=== PATIENT | female | born 1960 | race Caucasian/White ===

== ENCOUNTER 2019-06-10 02:08 | Inpatient (IN) | payer BC ==
--- NOTE | 2019-06-10 02:57 | ED ---
SOB HPI - General Chief Complaint: Shortness of Breath Stated Complaint: Shortness of breath Time Seen by Provider: 06/10/19 02:10 Source: patient, EMS Mode of arrival: EMS - History of Present Illness Initial Comments: The patient is a 58-year-old female, previously healthy with only diagnosis of bipolar depression who presented to [facility] for shortness of breath. She stated that 2 weeks ago she woke up in the middle the night with excruciating chest pain. States that the pain ended up going away and she was never evaluated for it. Since then she has had increasing shortness of breath. She does work at [employer] stated it was more difficult to get up and down stairs. States that her coworkers were persuading her to come into the emergency Department however she put it off. She then went into the emergency department at [facility] where they found that she had a large pericardial effusion and bilateral pleural effusions. She was saturating 88% on room air. They did present to liters she was saturating in the low 90s. Patient had a CT of her chest performed which ruled out a PE. Blood pressure was stable and he called and requested transfer to our facility. Patient arrives hemodynamically stable. Does admit to increased worker breathing however denies any current chest pain. Denies any back or flank pain. No fevers or chills. No nausea or vomiting. Denies a previous cardiac history. Denies abdominal pain. There are no alleviating, precipitating or modifying factors - Related Data Home Medications Medication Instructions Recorded Confirmed Divalproex [Depakote] 1,500 mg PO HS@202906/10/19 06/10/19 QUEtiapine FUMARATE 600 mg PO HS@202906/10/19 06/10/19 Previous Rx's Medication Instructions Recorded Apixaban [Eliquis] 10 mg PO BID #60 tab 06/16/19 Colchicine [Colcrys] 0.6 mg PO BID #60 each 06/16/19 Metoprolol Tartrate [Lopressor] 25 mg PO BID #60 tab 06/16/19 Allergies Allergy/AdvReac Type Severity Reaction Status Date / Time No Known Allergies Allergy Verified 06/10/19 08:18 Review of Systems ROS Statement: Those systems with pertinent positive or pertinent negative responses have been documented in the HPI. ROS Other: All systems not noted in ROS Statement are negative. Past Medical History History of Any Multi-Drug Resistant Organisms: None Reported Past Surgical History: Section, Tonsillectomy Additional Past Surgical History / Comment(s): Adnoidectomy Past Psychological History: Bipolar, Depression Smoking Status: Never smoker Past Drug Use History: None Reported - Past Family History Mother Family Medical History: Dementia Father Family Medical History: Diabetes Mellitus, Myocardial Infarction ([place]) ( at age 70 due to a myocardial infarction) General Exam General appearance: alert, in no apparent distress Head exam: Present: atraumatic, normocephalic, normal inspection Eye exam: Present: normal appearance, PERRL, EOMI. Absent: scleral icterus, conjunctival injection, periorbital swelling ENT exam: Present: normal exam, mucous membranes moist Neck exam: Present: normal inspection, other (JVD). Absent: tenderness, meningismus, lymphadenopathy Respiratory exam: Present: wheezes, rales, accessory muscle use, decreased breath sounds. Absent: respiratory distress, rhonchi, stridor Cardiovascular Exam: Present: regular rate, normal rhythm, normal heart sounds, other (heart sounds not muffled). Absent: systolic murmur, diastolic murmur, rubs, gallop, clicks GI/Abdominal exam: Present: soft, normal bowel sounds. Absent: distended, tenderness, guarding, rebound, rigid Extremities exam: Present: normal inspection, full ROM, normal capillary refill. Absent: tenderness, pedal edema, joint swelling, calf tenderness Back exam: Present: normal inspection Neurological exam: Present: alert, oriented X3, CN II-XII intact Psychiatric exam: Present: normal affect, normal mood Skin exam: Present: warm, dry, intact, normal color. Absent: rash Course Vital Signs 06/10/19 06/10/19 06/10/19 02:15 02:28 02:34 Temperature 98.1 F 98.1 F Pulse Rate 89 97 Pulse Rate [ 97 Ordnance Engineering Technician ] Respiratory 20 19 23 Rate Blood Pressure 110/92 110/92 O2 Sat by Pulse 92 L 92 L Oximetry 06/10/19 06/10/19 06/10/19 03:24 04:00 05:00 Temperature Pulse Rate 101 H 101 H 98 Pulse Rate [ Ordnance Engineering Technician ] Respiratory 22 22 22 Rate Blood Pressure 110/92 122/74 125/71 O2 Sat by Pulse 95 95 Oximetry Medical Decision Making - Medical Decision Making Upon arrival the patient was placed into room 10. I did review the patient's chart from [place]. Lactic acid was 1.8, hemoglobin 10.7, platelets 433, creatinine 0.7, potassium 3.6, sodium 138, chloride 106, troponin 0.03, BNP 134. She had received IV fluids, Toradol. CT ruled out PE however demonstrate a large pericardial effusion with bilateral pleural effusions. I did repeat a 12- lead EKG on the patient at her facility. I also conducted laboratory studies. Hemoglobin is 10.3. INR 1.2. Troponin is negative. I performed a bedside card iac ultrasound. There is large pericardial effusion with collapse of the right ventricle. Ultrasound pictures were placed on the chart. Because of this and my concern that the patient may need higher level of care, I called and discussed the case with Dr. Diamond at 3:50 AM. He does state that the patient may remain at [facility]. He recommends placing the patient in ICU, making her nothing by mouth with cardiology consult. He is also requesting a stat formal echo at 7 AM[address] Discuss[address] case with Dr. Cruz after this who accepted admission. I called and discussed the case with Dr. Jose who agreed to admission to ICU. Patient is being transported to the floor in stable condition - Lab Data Result diagrams: 06/15/19 05:26 06/15/19 05:26 Lab Results 06/10/19 06/10/19 06/10/19 Range/Units 02:50 02:50 02:50 WBC 9.3 (3.8-10.6) k/uL RBC 3.28 L (3.80-5.40) m/uL Hgb 10.3 L (11.4-16.0) gm/dL Hct 31.7 L (34.0-46.0) % MCV 96.6 (80.0-100.0) fL MCH 31.3 (25.0-35.0) pg MCHC 32.4 (31.0-37.0) g/dL RDW 13.3 (11.5-15.5) % Plt Count 374 (150-450) k/uL Neutrophils % 77 % Lymphocytes % 12 % Monocytes % 8 % Eosinophils % 2 % Basophils % 0 % Neutrophils # 7.1 (1.3-7.7) k/uL Lymphocytes # 1.1 (1.0-4.8) k/uL Monocytes # 0.8 (0-1.0) k/uL Eosinophils # 0.2 (0-0.7) k/uL Basophils # 0.0 (0-0.2) k/uL ESR (0-20) mm/hr PT 12.3 H (9.0-12.0) sec INR 1.2 H (<1.2) APTT 22.4 (22.0-30.0) sec Sodium 137 (137-145) mmol/L Potassium 4.3 (3.5-5.1) mmol/L Chloride 106 (98-107) mmol/L Carbon Dioxide 25 (22-30) mmol/L Anion Gap 6 mmol/L BUN 26 H (7-17) mg/dL Creatinine 0.69 (0.52-1.04) mg/dL Est GFR (CKD-EPI)AfAm >90 (>60 ml/min/1.73 sqM) Est GFR (CKD-EPI)NonAf >90 (>60 ml/min/1.73 sqM) Glucose 103 H (74-99) mg/dL Calcium 8.5 (8.4-10.2) mg/dL Total Bilirubin 0.7 (0.2-1.3) mg/dL AST 36 (14-36) U/L ALT 69 H (4-34) U/L Alkaline Phosphatase 149 H (38-126) U/L Troponin I (0.000-0.034) ng/mL Total Protein 6.2 L (6.3-8.2) g/dL Albumin 3.3 L (3.5-5.0) g/dL TSH (0.465-4.680) mIU/L Blood Type Confirm 06/10/19 06/10/19 06/10/19 Range/Units 02:50 02:50 02:50 WBC (3.8-10.6) k/uL RBC (3.80-5.40) m/uL Hgb (11.4-16.0) gm/dL Hct (34.0-46.0) % MCV (80.0-100.0) fL MCH (25.0-35.0) pg MCHC (31.0-37.0) g/dL RDW (11.5-15.5) % Plt Count (150-450) k/uL Neutrophils % % Lymphocytes % % Monocytes % % Eosinophils % % Basophils % % Neutrophils # (1.3-7.7) k/uL Lymphocytes # (1.0-4.8) k/uL Monocytes # (0-1.0) k/uL Eosinophils # (0-0.7) k/uL Basophils # (0-0.2) k/uL ESR 58 H (0-20) mm/hr PT (9.0-12.0) sec INR (<1.2) APTT (22.0-30.0) sec Sodium (137-145) mmol/L Potassium (3.5-5.1) mmol/L Chloride (98-107) mmol/L Carbon Dioxide (22-30) mmol/L Anion Gap mmol/L BUN (7-17) mg/dL Creatinine (0.52-1.04) mg/dL Est GFR (CKD-EPI)AfAm (>60 ml/min/1.73 sqM) Est GFR (CKD-EPI)NonAf (>60 ml/min/1.73 sqM) Glucose (74-99) mg/dL Calcium (8.4-10.2) mg/dL Total Bilirubin (0.2-1.3) mg/dL AST (14-36) U/L ALT (4-34) U/L Alkaline Phosphatase (38-126) U/L Troponin I <0.012 (0.000-0.034) ng/mL Total Protein (6.3-8.2) g/dL Albumin (3.5-5.0) g/dL TSH 2.890 (0.465-4.680) mIU/L Blood Type Confirm 06/10/19 Range/Units 02:50 WBC (3.8-10.6) k/uL RBC (3.80-5.40) m/uL Hgb (11.4-16.0) gm/dL Hct (34.0-46.0) % MCV (80.0-100.0) fL MCH (25.0-35.0) pg MCHC (31.0-37.0) g/dL RDW (11.5-15.5) % Plt Count (150-450) k/uL Neutrophils % % Lymphocytes % % Monocytes % % Eosinophils % % Basophils % % Neutrophils # (1.3-7.7) k/uL Lymphocytes # (1.0-4.8) k/uL Monocytes # (0-1.0) k/uL Eosinophils # (0-0.7) k/uL Basophils # (0-0.2) k/uL ESR (0-20) mm/hr PT (9.0-12.0) sec INR (<1.2) APTT (22.0-30.0) sec Sodium (137-145) mmol/L Potassium (3.5-5.1) mmol/L Chloride (98-107) mmol/L Carbon Dioxide (22-30) mmol/L Anion Gap mmol/L BUN (7-17) mg/dL Creatinine (0.52-1.04) mg/dL Est GFR (CKD-EPI)AfAm (>60 ml/min/1.73 sqM) Est GFR (CKD-EPI)NonAf (>60 ml/min/1.73 sqM) Glucose (74-99) mg/dL Calcium (8.4-10.2) mg/dL Total Bilirubin (0.2-1.3) mg/dL AST (14-36) U/L ALT (4-34) U/L Alkaline Phosphatase (38-126) U/L Troponin I (0.000-0.034) ng/mL Total Protein (6.3-8.2) g/dL Albumin (3.5-5.0) g/dL TSH (0.465-4.680) mIU/L Blood Type Confirm O Positive - EKG Data EKG Comments: EKG demonstrates normal sinus rhythm with ventricular rate of 98. NH interval 146. QRS 72. QTC of 457. No acute ST segment elevations or depressions concerning for ischemic changes. Critical Care Time Critical Care Time: Yes Critical Care Time: 35minutes independent of bedside us due to consultation with hospital, web marketing intern and electrical superintendent due to patients medical emergency with anticipated need for pericardial effusion. Disposition Clinical Impression: Pericardial effusion, Pleural effusion, Respiratory failure Disposition: ADMITTED IP TO THIS [facility] Condition: Serious Is patient prescribed a controlled substance at d/c from ED?: No Decision to Admit Reason: Admit from EC Decision Date: 06/10/19 Decision Time: 04:02
[2019-06-10 03:04] LABS: Basophils % (A) 0 %; Eosinophils # (A) 0.2 k/uL (0-0.7); Eosinophils % (A) 2 %; HCT 31.7 % (34.0-46.0); HGB 10.3 gm/dL (11.4-16.0); Lymphocytes # (A) 1.1 k/uL (1.0-4.8); Lymphocytes % (A) 12 %; MCH 31.3 pg (25.0-35.0); MCHC 32.4 g/dL (31.0-37.0); MCV 96.6 fL (80.0-100.0); Mean Platelet Volume 7.7; Monocytes # (A) 0.8 k/uL (0-1.0); Monocytes % (A) 8 %; Neutrophils # (A) 7.1 k/uL (1.3-7.7); Neutrophils % (A) 77 %; Platelet Count 374 k/uL (150-450); RBC 3.28 m/uL (3.80-5.40); RDW 13.3 % (11.5-15.5); WBC 9.3 k/uL (3.8-10.6)
[2019-06-10 03:15] LABS: INR 1.2 (<1.2); Partial Thromboplastin Time 22.4 sec (22.0-30.0); Prothrombin Time 12.3 sec (9.0-12.0)
[2019-06-10 03:21] LABS: ALT 69 U/L (4-34); AST 36 U/L (14-36); African American GFR (CKD) >90 (>60 ml/min/1.73 sqM); Albumin 3.3 g/dL (3.5-5.0); Alkaline Phosphatase 149 U/L (38-126); Anion Gap 6 mmol/L; Blood Urea Nitrogen 26 mg/dL (7-17); Calcium 8.5 mg/dL (8.4-10.2); Carbon Dioxide 25 mmol/L (22-30); Chloride 106 mmol/L (98-107); Glucose 103 mg/dL (74-99); Non-African American GFR(CKD) >90 (>60 ml/min/1.73 sqM); Potassium 4.3 mmol/L (3.5-5.1); Sodium 137 mmol/L (137-145); Total Bilirubin 0.7 mg/dL (0.2-1.3); Total Protein 6.2 g/dL (6.3-8.2)
[2019-06-10] MEDS ORDERED: FUROSEMIDE 10 MG/ML 4 ML VIAL IV STA ×2 (03:48→13:52)
[2019-06-10] MEDS ORDERED: NALOXONE 0.4 MG/ML 1 ML VIAL IV PRN (04:03)
[2019-06-10 05:59] LABS: Glucose,Whole Blood 85 mg/dL (75-99)
[2019-06-10] MEDS ORDERED: HYDROcodone/APAP 5-325MG 1 EACH TAB PO PRN (06:40)
[2019-06-10] MEDS ORDERED: ACETAMINOPHEN TAB 325 MG TAB PO PRN (06:40)
--- NOTE | 2019-06-10 06:42 | P.HPIM ---
History of Present Illness H&P Date: 06/10/19 Chief Complaint: Shortness of breath 58-year-old female with no significant PMH presents to [facility] as a transfer from [facility] for shortness of breath. Patient reports shortness of breath that has been progressively getting worse over the past 2 weeks. Patient states that her breathing is oftentimes worse with exertion. 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 Patient reports an instance 2 weeks ago when she was in bed when she experienced sudden onset intense chest tightness. She described the sensation as "twisting around my heart"and stabbing in nature. She is unable to describe her chest pain any further. She did not seek any medical attention for her problems. Extensive workup was done at [facility]. Chest x-ray showed atelectasis and bilateral pleural effusions. CBC showed hemoglobin of 10.7. Troponin was 0.03. CMP showed glucose 123, ALT 61. Lactic acid was 1.8, within normal limits. BNP was slightly elevated at 134. EKG showed sinus tachycardia with low voltage QRS. CTA of the chest was performed which revealed a large pericardial effusion, moderate to large right pleural effusion, [id number] left pleural effusion, no PE. Patient was transferred to [facility] for cardiothoracic evaluation. Lab work in the ED showed hemoglobin of 10.3. INR was 1.2, PT 12.3. CMP showed BUN 26, glucose 103, ALT 69, alkaline phosphatase 149. Troponin was less than 0.012, EKG showing normal sinus rhythm and low voltage QRS. Cardiothoracic surgery was contacted in the ED and recommended admission for possible pericardiocentesis in the morning. Patient is admitted for anticipated greater than 48 hours for possible CHF exacerbation and large pericardial effusion, cardiothoracic surgery and intensive is on consultation. Review of Systems Pertinent positives and negatives as discussed in HPI, a complete review of systems was performed and all other systems are negative. Past Medical History History of Any Multi-Drug Resistant Organisms: None Reported Past Surgical History: Section, Tonsillectomy Additional Past Surgical History / Comment(s): Adnoidectomy Past Psychological History: Bipolar, Depression Smoking Status: Never smoker Past Drug Use History: None Reported Medications and Allergies Allergies Allergy/AdvReac Type Severity Reaction Status Date / Time No Known Allergies Allergy Verified 06/10/19 02:53 Physical Exam Vitals: Vital Signs Temp Pulse Pulse Resp BP Pulse Ox 06/10/19 05:30 97 29 H 122/74 91 L 06/10/19 05:00 98 22 125/71 95 06/10/19 04:00 101 H 22 122/74 95 06/10/19 03:30 96 33 H 110/92 94 L 06/10/19 03:24 101 H 22 110/92 06/10/19 02:34 97 23 06/10/19 02:28 98.1 F 97 19 110/92 92 L 06/10/19 02:15 98.1 F 89 20 110/92 92 L Intake and Output 06/09/19 06/09/19 06/10/19 14:59 22:59 06:59 Other: Weight 86.183 kg General: [non toxic], [appears anxious, shallow breathing], [appears at stated age] Derm: [warm], [dry] Head: [atraumatic], [normocephalic], [symmetric] Eyes: [EOMI], [no lid lag], [anicteric sclera] Mouth: [no lip lesion], [mucus membranes moist] Cardiovascular: [S1S2 reg], [tachycardia], [positive DP pulse bilateral], Lungs: [CTA bilateral], [no rhonchi, no rales] , [no accessory muscle use] Abdominal: [soft], [ nontender to palpation], [no guarding], [no appreciable organomegaly] Ext: [no gross muscle atrophy], [no edema], [no contractures] Neuro: [ CN II-XI grossly intact], [no focal neuro deficits] Psych: [Alert], [oriented], [appropriate affect] Results CBC & Chem 7: 06/10/19 02:50 06/10/19 02:50 Labs: Abnormal Lab Results - Last 24 Hours (Table) 06/10/19 06/10/19 06/10/19 Range/Units 02:50 02:50 02:50 RBC 3.28 L (3.80-5.40) m/uL Hgb 10.3 L (11.4-16.0) gm/dL Hct 31.7 L (34.0-46.0) % PT 12.3 H (9.0-12.0) sec INR 1.2 H (<1.2) BUN 26 H (7-17) mg/dL Glucose 103 H (74-99) mg/dL ALT 69 H (4-34) U/L Alkaline Phosphatase 149 H (38-126) U/L Total Protein 6.2 L (6.3-8.2) g/dL Albumin 3.3 L (3.5-5.0) g/dL Assessment and Plan Assessment: Large pericardial effusion with Bilateral pleural effusion Anemia Elevated BUN Elevated ALT and alkaline phosphatase Her exact cause for pericardial effusion is unknown. Given her history of chest pain prior to her progressive shortness of breath, there is a chance that this could be cardiogenic in nature. She has an echocardiogram which has already been taken. Cardiothoracic surgery is aware and will evaluate the patient for possible pericardiocentesis. She has been placed nothing by mouth. She was given 1 dose of Lasix IV in the ED. I will continue Lasix 40 mg IV twice a day until we get results of the echocardiogram. Patient has been placed on teleme try monitoring. Cardiology and pulmonology is also following. Patient has hemoglobin of 10.3 that is normocytic. We will continue to monitor her hemoglobin and repeat CBC on a daily basis. Patient with elevated BUN of 26. Creatinine is within normal limits. This possibly related to dehydration. Plan is to avoid nephrotoxins and repeat CMP tomorrow morning. Patient has elevated ALT and alkaline phosphatase. This is of unknown significance. We will repeat CMP tomorrow morning. DVT prophylaxis: [SCD] Discussed with: [Patient] Anticipated discharge: [2-3 days] Anticipated discharge place: [Home] A total of [45] minutes was spent on the care of this complex patient more than 50% of the time was spent in counseling and care coordination. Patient names her daughter Bibi decision maker if she can't make decisions for herself. Patient elects to be full code at this time.
[2019-06-10] MEDS ORDERED: MD COMMUNICATION TO PHARMACY 1 EACH MISC PO ONE ×2 (08:14)
[2019-06-10] MEDS ORDERED: ceFAZolin 2 GM in SODIUM CHLORIDE 0.9% 30 ML IVPB ONE (08:16)
[2019-06-10] MEDS ORDERED: CHLORHEXIDINE GLUCONATE 15 ML CUP MUCOUS MEM ONE (08:17)
--- NOTE | 2019-06-10 08:40 | P.CRDCN ---
History of Present Illness Consult date: 06/10/19 Chief complaint: Shortness of breath/chest pain History of present illness: This is a very pleasant 58-year-old female patient who was transferred from [facility] for further evaluation off pericardial and pleural effusion. The patient does have past medical history significant for depression but no history of coronary artery disease or congestive heart failure or any cardiac arrhythmia and the patient never seen by a community center director in the past. She is taking medication for depression but the patient does not recall the name of the medication. For the last 3-4 days, she has been experiencing progressive shortness of breath with exertion and for the last day she was experiencing shortness of breath with laying flat in bed. Also yesterday she developed chest discomfort in the mid of the chest as well as. No dizziness or lightheadedness, heart racing or fluttering, or syncope. The patient stated that she gained weight which about 15 pounds started at the last summer till now. No lower extremities edema. Initially she presented to and walking clinic at [facility] and then subsequently she was transferred to the emergency room at [place] where a computed tomography scan of the chest was performed and revealed large right pleural and pericardial effusion was moderate left pleural effusion. An EKG was performed here and showed sinus rhythm with sinus tachycardia with low-voltage QRS. The patient is not aware of any prior cardiac history as a mentioned earlier. She is unaware of any prior thyroid disorder. She never seen by any physician regarding any autoimmune disease or connective tissue disease disorder. An echocardiogram is in process to be done. Currently the patient is hemodynamically stable and she is not on any vasopressors. She is in process also to be seen by the cardiothoracic surgeon for possible pericardial window. Past Medical History History of Any Multi-Drug Resistant Organisms: None Reported Past Surgical History: Section, Tonsillectomy Additional Past Surgical History / Comment(s): Adnoidectomy Past Psychological History: Bipolar, Depression Smoking Status: Never smoker Past Drug Use History: None Reported Medications and Allergies Home Medications Medication Instructions Recorded Confirmed Type Divalproex [Depakote] 1,500 mg PO HS@202906/10/19 06/10/19 History QUEtiapine FUMARATE 600 mg PO HS@202906/10/19 06/10/19 History Allergies Allergy/AdvReac Type Severity Reaction Status Date / Time No Known Allergies Allergy Verified 06/10/19 08:18 Physical Exam Vitals: Vital Signs Temp Pulse Pulse Resp BP Pulse Ox 06/10/19 07:00 98 30 H 138/94 93 L 06/10/19 06:29 92 L 06/10/19 06:00 98.3 F 99 31 H 122/74 94 L 06/10/19 05:00 98 22 125/71 95 06/10/19 04:00 101 H 22 122/74 95 06/10/19 03:24 101 H 22 110/92 06/10/19 02:34 97 23 06/10/19 02:28 98.1 F 97 19 110/92 92 L 06/10/19 02:15 98.1 F 89 20 110/92 92 L Intake and Output 06/09/19 06/10/19 06/10/19 22:59 06:59 14:59 Output Total 0 300 Balance 0 -300 Output: Urine 0 300 Other: Voiding Method Toilet Weight 86.183 kg - Constitutional General appearance: no acute distress - Respiratory Respiratory: right: diminished - Cardiovascular Rhythm: regular Heart sounds: normal: S1, S2 Results 06/10/19 02:50 06/10/19 02:50 Cardiac Enzymes 06/10/19 06/10/19 Range/Units 02:50 02:50 AST 36 (14-36) U/L Troponin I <0.012 (0.000-0.034) ng/mL Coagulation 06/10/19 Range/Units 02:50 PT 12.3 H (9.0-12.0) sec APTT 22.4 (22.0-30.0) sec CBC 06/10/19 Range/Units 02:50 WBC 9.3 (3.8-10.6) k/uL RBC 3.28 L (3.80-5.40) m/uL Hgb 10.3 L (11.4-16.0) gm/dL Hct 31.7 L (34.0-46.0) % Plt Count 374 (150-450) k/uL Comprehensive Metabolic Panel 06/10/19 Range/Units 02:50 Sodium 137 (137-145) mmol/L Potassium 4.3 (3.5-5.1) mmol/L Chloride 106 (98-107) mmol/L Carbon Dioxide 25 (22-30) mmol/L BUN 26 H (7-17) mg/dL Creatinine 0.69 (0.52-1.04) mg/dL Glucose 103 H (74-99) mg/dL Calcium 8.5 (8.4-10.2) mg/dL AST 36 (14-36) U/L ALT 69 H (4-34) U/L Alkaline Phosphatase 149 H (38-126) U/L Total Protein 6.2 L (6.3-8.2) g/dL Albumin 3.3 L (3.5-5.0) g/dL Current Medications Generic Name Dose Route Start Last Admin Trade Name Freq PRN Reason Stop Dose Admin Acetaminophen 650 mg 06/10/19 06:40 Tylenol Tab PO Q6HR PRN Mild Pain or Fever > 100.5 Hydrocodone Bitart/Acetaminophen 1 each 06/10/19 06:40 [place] 5-325 PO Q4HR PRN Moderate Pain Furosemide 40 mg 06/10/19 09:00 Lasix IV Q12HR [facility] Cefazolin Sodium 2 gm/ Sodium 50 mls @ 100 mls/hr 06/10/19 08:30 Chloride IVPB 06/10/19 08:59 ONCE ONE Sodium Chloride 1,000 mls @ 125 mls/hr 06/10/19 08:45 Saline 0.9% IV .Q8H NATACHA Naloxone HCl 0.2 mg 06/10/19 04:03 Narcan IV Q2M PRN Opioid Reversal Intake and Output 06/09/19 06/10/19 06/10/19 22:59 06:59 14:59 Output Total 0 300 Balance 0 -300 Output: Urine 0 300 Other: Voiding Method Toilet Weight 86.183 kg 06/10/19 02:50 06/10/19 02:50 Assessment and Plan Assessment: Assessment #1 pleurisy with pericardial and pleural effusion #2 large pericardial effusion by computed tomography scan #3 large pleural effusion by computed tomography scan as well #4 history of depression Plan #1 overall the patient symptoms of shortness of breath is better #2 currently she is hemodynamically stable except for mild sinus tachycardia #3 rule out thyroid disorder. I will obtain a TSH and free T4 #4 rule out autoimmune disease. I will obtain a sed rate #5 obtain an echocardiogram to estimate the amount of pericardial effusion and assess off dominant physiology #6 she is in process of being seen by the cardiothoracic surgeon Thank you for allowing us participate in her care and we will continue following up with the patient
[2019-06-10] MEDS ORDERED: SODIUM CHLORIDE 0.9% 1,000 ML IV SCH (08:45)
--- NOTE | 2019-06-10 08:48 | XR ---
EXAMINATION TYPE: XR chest 1V portable DATE OF EXAM: 06/10/2019 HISTORY: Shortness of breath. COMPARISON: None. TECHNIQUE: Single view of the chest is submitted. FINDINGS: Demonstrated are scattered senescent parenchymal change. Basilar infiltrates and/or atelectasis/pleural effusions. The heart is stable. Hilar and mediastinal structures are within normal limits. Degenerative changes are seen of the dorsal spine. IMPRESSION: 1. No significant interval change.
[2019-06-10] MEDS ORDERED: FUROSEMIDE 10 MG/ML 4 ML VIAL IV SCH (09:00)
--- NOTE | 2019-06-10 09:11 | P.GSCN ---
History of Present Illness Consult date: 06/10/19 Reason for Consult: Large pericardial effusion Requesting physician: Angelina Hendrix History of present illness: This is a 58-year-old female patient who follows with nurse practitioner Kristian Lord out of [place]. She has a past medical history of bipolar disorder. Recently, she has been complaining of progressive shortness of breath over the past 3 weeks. She states that in January or February of this year she didn't have laryngitis for about 1 month but denies any recent fever, chills, nausea, vomiting, cough, palpitations or dizziness. 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 Subsequently, yesterday due to her worsening shortness of breath and pain to her right back she reported to the emergency department at [facility]. A computed tomography scan of her chest was performed to rule out a pulmonary embolus and it showed an incidental finding of a large pericardial effusion and bilateral pleural effusions. Due to the patient's symptoms and findings on her computed tomography scan of her chest she was transferred to [facility] where a consult was placed to Dr. Arslan Diamond from cardiothoracic surgery for further evaluation and treatment recommendations regarding her pericardial effusion. Review of Systems A 14 point review the 14 point review of systems was completed and was negative except as mentioned in the HPI. Past Medical History Additional Past Medical History / Comment(s): Bipolar disorder with history of suicidal ideation in October 2018 with inpatient treatment. History of Any Multi-Drug Resistant Organisms: None Reported Past Surgical History: Adenoidectomy, Section, Tonsillectomy Additional Past Surgical History / Comment(s): Adnoidectomy Past Anesthesia/Blood Transfusion Reactions: No Reported Reaction Past Psychological History: Bipolar, Depression Smoking Status: Never smoker Past Alcohol Use History: Occasional Past Drug Use History: None Reported - Past Family History Mother Family Medical History: Dementia Father Family Medical History: Diabetes Mellitus, Myocardial Infarction ([place]) ( at age 70 due to a myocardial infarction) Medications and Allergies Home Medications Medication Instructions Recorded Confirmed Type Divalproex [Depakote] 1,500 mg PO HS@202906/10/19 06/10/19 History QUEtiapine FUMARATE 600 mg PO HS@202906/10/1906/10/20 History Allergies Allergy/AdvReac Type Severity Reaction Status Date / Time No Known Allergies Allergy Verified 06/10/19 08:18 Surgical - Exam Vital Signs Temp Pulse Resp BP Pulse Ox 98.1 F 89 20 110/92 92 L 06/10/19 02:15 06/10/19 02:15 06/10/19 02:15 06/10/19 02:15 06/10/19 02:15 - General well developed, well nourished, no distress, no pain, obese - Eyes PERRL, normal ocular movement - ENT normal pinna, normal nares, normal mucosa, no hearing loss, no congestion - Neck Positive JVD, no lymphadenopathy. no masses, no bruits, trachea midline - Respiratory Lung sounds with few scattered crackles to bilateral bases, diminished bilateral bases. Respirations symmetrical and slightly labored. Oxygen saturation is 93% on 6 L nasal cannula. - Cardiovascular Regular rhythm and rate. S1 and S2 present, negative for S3, gallop or murmur. +1 edema to bilateral lower extremities. - Abdomen Abdomen is soft, nontender nondistended. Active bowel sounds present all 4 abdominal quadrants. No guarding or rigidity. No organomegaly appreciated. - Genitourinary Deferred - Rectum Deferred - Integumentary no rash, no growths, no abnormal pigmentation - Neurologic normal coordination, normal sensation - Musculoskeletal normal posture - Psychiatric oriented to time, oriented to person, oriented to place, speech is normal, memory intact Results - Labs 06/10/19 02:50 06/10/19 02:50 Abnormal Lab Results - Last 24 Hours (Table) 06/10/19 06/10/19 06/10/19 Range/Units 02:50 02:50 02:50 RBC 3.28 L (3.80-5.40) m/uL Hgb 10.3 L (11.4-16.0) gm/dL Hct 31.7 L (34.0-46.0) % PT 12.3 H (9.0-12.0) sec INR 1.2 H (<1.2) BUN 26 H (7-17) mg/dL Glucose 103 H (74-99) mg/dL ALT 69 H (4-34) U/L Alkaline Phosphatase 149 H (38-126) U/L Total Protein 6.2 L (6.3-8.2) g/dL Albumin 3.3 L (3.5-5.0) g/dL Diabetes panel 06/10/19 Range/Units 02:50 Sodium 137 (137-145) mmol/L Potassium 4.3 (3.5-5.1) mmol/L Chloride 106 (98-107) mmol/L Carbon Dioxide 25 (22-30) mmol/L BUN 26 H (7-17) mg/dL Creatinine 0.69 (0.52-1.04) mg/dL Glucose 103 H (74-99) mg/dL Calcium 8.5 (8.4-10.2) mg/dL AST 36 (14-36) U/L ALT 69 H (4-34) U/L Alkaline Phosphatase 149 H (38-126) U/L Total Protein 6.2 L (6.3-8.2) g/dL Albumin 3.3 L (3.5-5.0) g/dL Calcium panel 06/10/19 Range/Units 02:50 Calcium 8.5 (8.4-10.2) mg/dL Albumin 3.3 L (3.5-5.0) g/dL Pituitary panel 06/10/19 Range/Units 02:50 Sodium 137 (137-145) mmol/L Potassium 4.3 (3.5-5.1) mmol/L Chloride 106 (98-107) mmol/L Carbon Dioxide 25 (22-30) mmol/L BUN 26 H (7-17) mg/dL Creatinine 0.69 (0.52-1.04) mg/dL Glucose 103 H (74-99) mg/dL Calcium 8.5 (8.4-10.2) mg/dL Adrenal panel 06/10/19 Range/Units 02:50 Sodium 137 (137-145) mmol/L Potassium 4.3 (3.5-5.1) mmol/L Chloride 106 (98-107) mmol/L Carbon Dioxide 25 (22-30) mmol/L BUN 26 H (7-17) mg/dL Creatinine 0.69 (0.52-1.04) mg/dL Glucose 103 H (74-99) mg/dL Calcium 8.5 (8.4-10.2) mg/dL Total Bilirubin 0.7 (0.2-1.3) mg/dL AST 36 (14-36) U/L ALT 69 H (4-34) U/L Alkaline Phosphatase 149 H (38-126) U/L Total Protein 6.2 L (6.3-8.2) g/dL Albumin 3.3 L (3.5-5.0) g/dL - Imaging Chest x-ray: report reviewed, image reviewed CT scan - chest: image reviewed Assessment and Plan Assessment: 1. Large pericardial effusion 2. Bilateral pleural effusions 3. Dyspnea 4. History of bipolar disorder 5. History of suicidal ideation Plan: The patient was seen and examined at her bedside in the intensive care unit. Her chart and diagnostics were reviewed. Her case was discussed with Dr. Mukesh Smith from cardiothoracic surgery in detail. She was seen and evaluated by Dr. Mukesh Smith from cardiothoracic surgery. The patient continues to be nothing by mouth. The computed tomography scan of her chest results and 2-D echocardiogram results showing large pericardial effusion were discussed with the patient by Dr. Smith. Treatment options were discussed with the patient including pericardial window. Risks and benefits were discussed with the patient and she wishes to proceed with the pericardial window. IV fluids of 0.9% normal saline are infusing at 125 mL per hour. Obtain consent for pericardial window. Stat type and screen and obtained consent for blood transfusion. We will obtain a stat chest x-ray. More recommendations to follow based on patient's clinical course. Thank you for this consult and we look forward to working with her in the care of this patient. Time with Patient: Greater than 30
--- NOTE | 2019-06-10 09:35 | P.CNPUL ---
<Karin Delacruz - Last Filed: 06/10/19 09:35> History of Present Illness Consult date: 06/10/19 Reason for consult: dyspnea, hypoxemia, pleural effusion, abnormal CXR/CT Chief complaint: Shortness of breath, pleuritic right-sided pain History of present illness: 58-year-old white female patient who follows with Kristian Lord PA-C, in [facility], with history of bipolar disorder, depression, remote history of seizures at the age of 9, hepatitis unsure of what type in childhood, nonsmoker, who presented to the [facility] with complaints of shortness of breath and right-sided pleuritic chest pain on 06/09/2019. Patient has no history of coronary artery disease, no history of CHF, cardiac arrhythmia, no chronic lung disease. On presentation patient was also hypoxic, tachycardic and has slightly elevated temperature. Onset of symptoms was 2 weeks ago, patient denies recent illness. Patient was progressively short of breath, especially with any exertion, no lightheadedness or dizziness. She does report increasing swelling in her bilateral lower extremities. Patient also reports some palpitations, mild dry cough. No phlegm production. Denied any fever or chills, denied any nausea vomiting. Chest x-ray was obtained showing bibasilar lung consolidation, bilateral small pleural effusions left greater than right, mild cardiomegaly. Laboratory urinalysis showed white blood cell count of 9.7, hemoglobin of 10.7, first troponin at 0.03, sodium of 138, potassium is 3.6, chloride is 106, CO2 is 23, mild anion gap acidosis with a gap of 13, BUN of 23, creatinine 0.7, lactic acid of 1.8, BNP of 134. EKG showed sinus tachycardia with low voltage QRS. CT angiography of the chest was obtained showing moderate to large right pleural effusion, small to moderate left pleural effusion, large pericardial effusion, bibasilar atelectatic lung consolidation, no evidence of pulmonary embolism. Blood cultures were obtained and sent, patient was given Toradol for pain control, and was transferred to [facility] for cardiothoracic surgery evaluation, and patient has been scheduled for pericardial window this morning. Patient is seen in the intensive care unit, she is currently calm and comfortable, mildly short of breath with exertion, but no acute distress, she is on 6 L of oxygen with a pulse ox of 92%, in sinus mechanism with a rate of 90 BPM, she is afebrile. This morning his blood work has been reviewed showing white blood cell, 9.3, hemoglobin of 10.3, INR 1.2, electrolytes were unremarkable, B1 is 26 creatinine 0.69, troponin is less than 0.012, ALT 69, alk phos was 149. Hemodynamically she is stable, no vasoactive drips, maintenance IV fluids 0.45 at a rate of 125 ML per hour, she has been started on IV Lasix, colchicine, and Kefzol Review of Systems All systems: negative Constitutional: Denies chills, Denies fever Eyes: denies blurred vision, denies pain Ears, nose, mouth and throat: Denies headache, Denies sore throat Cardiovascular: Reports decreased exercise tolerance, Reports dyspnea on exertion, Reports edema, Reports leg edema, Reports palpitations, Reports shortness of breath, Denies chest pain Respiratory: Reports cough, Reports dyspnea, Reports pain on inspiration Gastrointestinal: Denies abdominal pain, Denies diarrhea, Denies nausea, Denies vomiting Genitourinary: Denies dysuria, Denies hematuria Musculoskeletal: Denies myalgias Musculoskeletal: bilateral: ankle swelling Integumentary: Denies pruritus, Denies rash Neurological: Denies numbness, Denies weakness Psychiatric: Denies anxiety, Denies depression Endocrine: Denies fatigue, Denies weight change Past Medical History Past Medical History: Seizure Disorder Additional Past Medical History / Comment(s): Remote history of seizures at the age of 9, was treated with phenobarbital for one year, with no subsequent recurrence of seizures History of Any Multi-Drug Resistant Organisms: None Reported Past Surgical History: Section, Tonsillectomy Additional Past Surgical History / Comment(s): Adnoidectomy Past Psychological History: Bipolar, Depression Smoking Status: Never smoker Past Drug Use History: None Reported - Past Family History Mother Family Medical History: Dementia Father Family Medical History: Diabetes Mellitus, Myocardial Infarction ([place]) ( at age 70 due to a myocardial infarction) Medications and Allergies Home Medications Medication Instructions Recorded Confirmed Type Divalproex [Depakote] 1,500 mg PO HS@202906/10/19 06/10/19 History QUEtiapine FUMARATE 600 mg PO HS@202906/10/19 06/10/19 History Allergies Allergy/AdvReac Type Severity Reaction Status Date / Time No Known Allergies Allergy Verified 06/10/19 08:18 Physical Exam Vitals: Vital Signs Temp Pulse Pulse Resp BP Pulse Ox 06/10/19 07:00 98 30 H 138/94 93 L 06/10/19 06:29 92 L 06/10/19 06:00 98.3 F 99 31 H 122/74 94 L 06/10/19 05:00 98 22 125/71 95 06/10/19 04:00 101 H 22 122/74 95 06/10/19 03:24 101 H 22 110/92 06/10/19 02:34 97 23 06/10/19 02:28 98.1 F 97 19 110/92 92 L 06/10/19 02:15 98.1 F 89 20 110/92 92 L Intake and Output 06/09/19 06/10/19 06/10/19 22:59 06:59 14:59 Output Total 0 300 Balance 0 -300 Output: Urine 0 300 Other: Voiding Method Toilet Weight 86.183 kg GENERAL EXAM: Alert, very pleasant, 58-year-old white female, on 6 L of oxygen, pulse ox is 92-93% comfortable in no apparent distress. HEAD: Normocephalic/atraumatic. EYES: Normal reaction of pupils, equal size. Conjunctiva pink, sclera white. NOSE: Clear with pink turbinates. THROAT: No erythema or exudates. NECK: No masses, mild JVD, no thyroid enlargement, no adenopathy. CHEST: No chest wall deformity. Symmetrical expansion. LUNGS: Equal air entry with diminished breath sounds at the left posterior lower base with dullness to percussion, some crackles at the right lower base CVS: Regular rate and rhythm, normal S1 and S2, no gallops, no murmurs, no rubs ABDOMEN: Soft, nontender. No hepatosplenomegaly, normal bowel sounds, no guarding or rigidity. EXTREMITIES: No clubbing, mild pretibial edema, no cyanosis, 2+ pulses and upper and lower extremities. MUSCULOSKELETAL: Muscle strength and tone normal. SPINE: No scoliosis or deformity SKIN: No rashes CENTRAL NERVOUS SYSTEM: Alert and oriented -3. No focal deficits, tone is normal in all 4 extremities. PSYCHIATRIC: Alert and oriented -3. Appropriate affect. Intact judgment and insight. Results - Laboratory Findings CBC and BMP: 02/21/20 02:50 06/10/19 02:50 PT/INR, D-dimer PT 12.3 sec (9.0-12.0) H 06/10/19 02:50 INR 1.2 (<1.2) H 06/10/19 02:50 Abnormal lab findings: Abnormal Labs 06/10/19 06/10/19 06/10/19 02:50 02:50 02:50 RBC 3.28 L Hgb 10.3 L Hct 31.7 L PT 12.3 H INR 1.2 H BUN 26 H Glucose 103 H ALT 69 H Alkaline Phosphatase 149 H Total Protein 6.2 L Albumin 3.3 L - Diagnostic Findings Chest x-ray: report reviewed CT scan - chest: report reviewed Additional studies: EKG reviewed Assessment and Plan Plan: Assessment: #1. Large pericardial effusion of unclear etiology, awaiting pericardial window surgery this morning #2. Bilateral pleural effusions #3. Acute hypoxemic respiratory failure related to the above #4. Right-sided pleuritic chest pain and progressive shortness of breath related to the above #5. History of depression #6. History of bipolar disorder #7. Remote history of seizures in childhood with no recurrence since age 9 #8. Anemia, normocytic Plan: Patient has been scheduled for pericardial window this morning. Continue with current treatment including diuretics, pain control, supplemental oxygen, and close hemodynamic monitoring in the intensive care unit. We'll plan on left- sided thoracentesis in the postoperative period. We'll continue to follow with cardiology and CT surgery. I performed a history & physical examination of the patient and discussed their management with my nurse practitioner, Karin Delacruz. I reviewed the nurse practitioner's note and agree with the documented findings and plan of care. Lung sounds are positive for diminished breath sounds in the left lower base with dullness to percussion. The findings and the impression was discussed with the patient. I attest to the documentation by the nurse practitioner. Time with Patient: Greater than 30 <Renuka Jose - Last Filed: 06/10/19 09:38> Physical Exam Vitals: Vital Signs Temp Pulse Pulse Resp BP Pulse Ox 06/10/19 09:00 96 31 H 138/94 94 L 06/10/19 08:30 101 H 23 138/94 93 L 06/10/19 07:00 98 30 H 138/94 93 L 06/10/19 06:29 92 L 06/10/19 06:00 98.3 F 99 31 H 122/74 94 L 06/10/19 05:00 98 22 125/71 95 06/10/19 04:00 101 H 22 122/74 95 06/10/19 03:24 101 H 22 110/92 06/10/19 02:34 97 23 06/10/19 02:28 98.1 F 97 19 110/92 92 L 06/10/19 02:15 98.1 F 89 20 110/92 92 L Intake and Output 06/09/19 06/10/19 06/10/19 22:59 06:59 14:59 Output Total 0 300 Balance 0 -300 Output: Urine 0 300 Other: Voiding Method Toilet Weight 86.183 kg Results - Laboratory Findings CBC and BMP: 06/10/19 02:50 06/10/19 02:50 PT/INR, D-dimer PT 12.3 sec (9.0-12.0) H 06/10/19 02:50 INR 1.2 (<1.2) H 06/10/19 02:50 Abnormal lab findings: Abnormal Labs 06/10/19 06/10/19 06/10/19 02:50 02:50 02:50 RBC 3.28 L Hgb 10.3 L Hct 31.7 L PT 12.3 H INR 1.2 H BUN 26 H Glucose 103 H ALT 69 H Alkaline Phosphatase 149 H Total Protein 6.2 L Albumin 3.3 L Assessment and Plan Plan: The patient will be taken to the operating room for a pericardial window. The patient also has bilateral pleural effusions. She may need a thoracentesis following the procedure to evacuate the pleural effusions. Awaiting further workup post window including fluid analysis. We'll continue to follow.
[2019-06-10] MEDS ORDERED: SUCCINYLCHOLINE CHLORIDE 100 MG/5 ML SYR IV ONE (09:38)
[2019-06-10] MEDS ORDERED: ROCURONIUM BROMIDE 10 MG/ML 5 ML VIAL IV ONE (09:38)
[2019-06-10] MEDS ORDERED: ETOMIDATE 2 MG/ML 10 ML VIAL ONE (09:38)
[2019-06-10] MEDS ORDERED: fentaNYL (PF) 50 MCG/ML 2 ML AMP ONE (09:38)
[2019-06-10] MEDS ORDERED: KETAMINE 10 MG/ML 20 ML VIAL ONE (09:38)
[2019-06-10] MEDS ORDERED: MIDAZOLAM 2 MG/2 ML VIAL ONE (09:38)
[2019-06-10] MEDS: COLCHICINE 0.6 MG EACH PO SCH ×2 (09:54→19:55)
[2019-06-10] MEDS ORDERED: SODIUM CHLORIDE 0.9% 1,000 ML IV ONE (10:00)
[2019-06-10] MEDS ORDERED: LACTATED RINGERS 1,000 ML IV ONE (10:36)
--- NOTE | 2019-06-10 11:22 | OP ---
OPERATIVE REPORT DATE OF THE SURGERY: 06/10/2019. SURGEON: Dr. Mukesh Smith. PHARMACY LABORATORY TECHNICIAN: Arthur Godoy, physician commercial lending assistant. PREOPERATIVE DIAGNOSIS: Large pericardial effusion with early tamponade physiology. POSTOPERATIVE DIAGNOSIS: Large bloody pericardial effusion. PROCEDURE: Emergent subxiphoid pericardiostomy. INDICATIONS FOR SURGERY: Patient is a 58-year-old lady transferred from [facility] with diagnosis of large pericardial effusion. That followed several weeks what seems to be viral upper respiratory infection. The patient had a CAT scan in [place], which showed a large effusion and an echo. The 2D echo here at [facility] confirmed a large pericardial effusion with early diastolic collapse of the right atrium. The patient then taken for emergent pericardial window. Risks, benefits, and alternatives were discussed with her. She understood and agreed to proceed. DESCRIPTION OF PROCEDURE: Patient was brought from the ICU and a left radial arterial line was placed. The patient was induced uneventfully and remained hemodynamically stable. The chest and abdomen were prepped and draped using ChloraPrep. Ioban was used to cover the skin. Patient received 2 grams of cefazolin intravenously. LOY showed large pericardial effusion, circumferential. A 5 cm midline incision centered on the tip of the xiphoid was made and carried down to the linea alba which was opened. We dissected bluntly with a finger below the subxiphoid cartilage and the distal aspect of the sternum and we used the Rultract retractor under that area to lift the sternum up. Combination of blunt and dissection with the Bovie lead to the shiny blue surface of the pericardium. An opening was made in the pericardium. A total of around 700 mL of bloody fluid was aspirated. The specimen was sent for cell count and biochemistry and the rest to be sent for cytology. A piece of pericardium was excised with the Bovie for pathology. The LOY showed no residual fluid. A 32-Indonesian right angle chest tube was placed in the posterior pericardium and brought out through a separate stab incision inferiorly and affixed to the skin. The fascia was closed using Vicryl 0 in a running fashion. Vicryl 2-0 for the subcutaneous tissue and Vicryl 4-0 for the skin in subcuticular manner. The patient tolerated procedure well and transferred back to the ICU in stable condition. MMODL / IJN: [id number] /
--- NOTE | 2019-06-10 12:00 | ECHOF ---
Referral Reason:pericardial effusion MEASUREMENTS -------- HEIGHT: 167.6 cm WEIGHT: 86.2 kg BP: 138/94 RVIDd: 2.5 cm (< 3.3) IVSd: 1.1 cm (0.6 - 1.1) LVIDd: 3.7 cm (3.9 - 5.3) LVPWd: 1.1 cm (0.6 - 1.1) IVSs: 1.7 cm LVIDs: 2.3 cm LVPWs: 1.4 cm LA Diam: 2.8 cm (2.7 - 3.8) LAESV Index (A-L): 26.88 ml/m Ao Diam: 3.2 cm (2.0 - 3.7) AV Cusp: 1.8 cm (1.5 - 2.6) MV EXCURSION: 35.748 mm (> 18.000) MV EF SLOPE: 11 mm/s (70 - 150) EPSS: 0.1 cm MV E Denys: 0.96 m/s MV DecT: 188 ms MV A Denys: 0.65 m/s MV E/A Ratio: 1.47 RAP: 15.00 mmHg RVSP: 36.84 mmHg FINDINGS -------- Sinus rhythm. This was a technically good study. The left ventricular size is normal. There is borderline concentric left ventricular hypertrophy. Overall left ventricular systolic function is normal with, an EF between 60 - 65 %. The right ventricle is normal in size. Normal LA size by volume 22+/-6 ml/m2. The right atrium is normal in size. Interatrial and interventricular septum intact. The aortic valve is trileaflet and appears structurally normal. The mitral valve is normal. Mild tricuspid regurgitation present. There is mild pulmonary hypertension. The right ventricular systolic pressure, as measured by Doppler, is 36.84mmHg. Trace/mild (physiologic) pulmonic regurgitation. The aortic root size is normal. The inferior vena cava is dilated with no significant inspiratory collapse which is consistent estima [place] right atrial pressure of >15 mmHg. There is a large, generalized pericardial effusion present. CONCLUSIONS -------- 1. Sinus rhythm. 2. This was a technically good study. 3. The left ventricular size is normal. 4. There is borderline concentric left ventricular hypertrophy. 5. Overall left ventricular systolic function is normal with, an EF between 60 - 65 %. 6. The right ventricle is normal in size. 7. Normal LA size by volume 22+/-6 ml/m2. 8. The right atrium is normal in size. 9. Interatrial and interventricular septum intact. 10. The aortic valve is trileaflet and appears structurally normal. 11. The mitral valve is normal. 12. Mild tricuspid regurgitation present. 13. There is mild pulmonary hypertension. 14. The right ventricular systolic pressure, as measured by Doppler, is 36.84mmHg. 15. Trace/mild (physiologic) pulmonic regurgitation. 16. The aortic root size is normal. 17. The inferior vena cava is dilated with no significant inspiratory collapse which is consistent es timated right atrial pressure of >15 mmHg. 18. There is a large, generalized pericardial effusion present. DIGITAL COURT REPORTER: Kelly Adams RDCS
[2019-06-10 12:30] LABS: Glucose,Whole Blood 81 mg/dL (75-99)
[2019-06-10] MEDS ORDERED: LACTATED RINGERS 1,000 ML IV SCH (12:55)
[2019-06-10] MEDS ORDERED: KETOROLAC 30 MG/ML 1 ML VIAL IVP PRN (12:55)
--- NOTE | 2019-06-10 13:21 | XR ---
EXAMINATION TYPE: XR chest 1V portable DATE OF EXAM: 06/10/2019 COMPARISON: Prior chest x-ray 06/10/2019 HISTORY: Postop cardiac surgery TECHNIQUE: Single frontal view of the chest is obtained. FINDINGS: Bibasilar increased density persists. The heart is enlarged. There is no evident pneumotho rax. There are overlying cardiac leads. Tube is present overlying the lower aspect of the heart. Inte rstitium is increased. IMPRESSION: Correlate for volume overload, pulmonary venous hypertension and interstitial edema. Lik sreedhar there are are basilar effusions and associated atelectasis versus edema.
--- NOTE | 2019-06-10 14:14 | P.PN ---
Progress Note - Text Progress Note Date: 06/10/19 Patient was seen. She underwent pericardial window this morning under cardiothoracic surgery. Postprocedure, patient was placed on BiPAP. 800 mL of fluid was drawn out of the pericardium. There are possible plans for thoracentesis by pulmonology. She is pending clinical improvement.
--- NOTE | 2019-06-10 16:14 | XR ---
EXAMINATION TYPE: XR chest 1V portable DATE OF EXAM: 06/10/2019 HISTORY: Status postthoracentesis COMPARISON: 06/10/2019 TECHNIQUE: Single view of the chest is submitted. FINDINGS: Demonstrated are scattered senescent parenchymal change. No evidence for left-sided pneumothorax. Moderate the basilar opacity likely reflects a combination o f infiltrate, atelectasis and/or effusion. Basilar drain is in place. The heart is stable. Hilar and mediastinal structures are within normal limits. Degenerative changes are seen of the dorsal spine. IMPRESSION: 1. No evidence for left-sided pneumothorax. Moderate the basilar opacity likely reflects a combinati on of infiltrate, atelectasis and/or effusion. Basilar drain is in place.
--- NOTE | 2019-06-10 16:17 | P.PCN ---
Date of Procedure: 06/10/19 Preoperative Diagnosis: Left-sided pleural effusion Postoperative Diagnosis: Same Procedure(s) Performed: Thoracentesis Anesthesia: local Surgeon: Renuka Jose Pathology: other Condition: stable Disposition: ICU Operative Findings: Indication: Pleural effusion. A time-out was completed verifying correct patient, procedure, site, positioning, and implant (s) or special equipment if applicable. Patient was positioned, prepped and draped in usual sterile fashion. Lidocaine was used to anesthetize the area. A Thoracentesis catheter was introduced into the left pleural space and fluid was removed. Blood loss was none. A chest x-ray was ordered to evaluate for pneumothorax. Total Fluid Removed: 700 Color of Fluid: turbid yellow Fluid was not sent for appropriate laboratory tests. Patient tolerated the procedure well and there were no complications.
--- NOTE | 2019-06-10 16:18 | P.PCN ---
Date of Procedure: 06/10/19 Preoperative Diagnosis: pleural effusion, right Postoperative Diagnosis: pleural effusion, right Procedure(s) Performed: thoracentesis Anesthesia: local Surgeon: Renuka Jose Pathology: other Condition: stable Disposition: ICU Description of Procedure: A time-out was completed verifying correct patient, procedure, site, positioning, and implant (s) or special equipment if applicable. Patient was positioned, prepped and draped in usual sterile fashion. Lidocaine was used to anesthetize the area. A Thoracentesis catheter was introduced into the left pleural space and fluid was removed. Blood loss was none. A chest x-ray was ordered to evaluate for pneumothorax. Total Fluid Removed: 1200 Color of Fluid: turbid yellow Fluid was sent for appropriate laboratory tests. Patient tolerated the procedure well and there were no complications. No pneumothorax
[2019-06-10 16:21] LABS: Appearance,BF Bloody; Nucleated Cells, Body Fluid 1250 /uL; RBC, Body Fluid 469000 /uL
[2019-06-10 16:23] LABS: Total Cells Counted,Body Fluid 100
[2019-06-10] MEDS: ACETAMINOPHEN IV (For NPO) 1,000 MG in EMPTY BAG 1 BAG IVPB SCH ×2 (16:26→19:18)
--- NOTE | 2019-06-10 16:28 | XR ---
EXAMINATION TYPE: XR chest 1V portable DATE OF EXAM: 06/10/2019 HISTORY: Thoracentesis COMPARISON: Earlier today TECHNIQUE: Single view of the chest is submitted. FINDINGS: Demonstrated are scattered senescent parenchymal change. Improved density left lung base status post thoracentesis without pneumothorax. The heart is stable. Hilar and mediastinal structures are within normal limits. Degenerative changes are seen of the dorsal spine. IMPRESSION: 1. Improved density left lung base status post thoracentesis without pneumothorax.
[2019-06-10 16:31] LABS: Basophils % (A) 0 %; Eosinophils # (A) 0.2 k/uL (0-0.7); Eosinophils % (A) 2 %; HCT 34.8 % (34.0-46.0); HGB 11.1 gm/dL (11.4-16.0); Lymphocytes # (A) 0.7 k/uL (1.0-4.8); Lymphocytes % (A) 7 %; MCHC 32.1 g/dL (31.0-37.0); MCV 96.5 fL (80.0-100.0); Mean Platelet Volume 7.8; Monocytes # (A) 0.7 k/uL (0-1.0); Monocytes % (A) 8 %; Neutrophils # (A) 7.5 k/uL (1.3-7.7); Neutrophils % (A) 81 %; Platelet Count 351 k/uL (150-450); RDW 13.1 % (11.5-15.5); WBC 9.2 k/uL (3.8-10.6)
[2019-06-10 16:56] LABS: ALT 60 U/L (4-34); AST 36 U/L (14-36); African American GFR (CKD) >90 (>60 ml/min/1.73 sqM); Albumin 3.1 g/dL (3.5-5.0); Alkaline Phosphatase 147 U/L (38-126); Anion Gap 7 mmol/L; Blood Urea Nitrogen 19 mg/dL (7-17); Carbon Dioxide 27 mmol/L (22-30); Chloride 103 mmol/L (98-107); Glucose 94 mg/dL (74-99); Magnesium 1.9 mg/dL (1.6-2.3); Non-African American GFR(CKD) >90 (>60 ml/min/1.73 sqM); Potassium 4.2 mmol/L (3.5-5.1); Sodium 137 mmol/L (137-145); Total Bilirubin 0.7 mg/dL (0.2-1.3); Total Protein 6.1 g/dL (6.3-8.2)
[2019-06-10 17:47] LABS: Mononuclear WBC,Body Fluid 72 %; Polynuclear WBC,Body Fluid 27 %
[2019-06-10] MEDS: HEPARIN SODIUM,PORCINE 5,000 UNIT/ML 1 ML VIAL SQ SCH (19:20)
[2019-06-10 19:42] LABS: Appearance,BF Hazy; Nucleated Cells, Body Fluid 200 /uL; RBC, Body Fluid 5150 /uL
[2019-06-10 19:44] LABS: Mononuclear WBC,Body Fluid 56 %; Polynuclear WBC,Body Fluid 44 %; Total Cells Counted,Body Fluid 100
[2019-06-10] MEDS ORDERED: DIVALPROEX 500 MG TABLET.DR PO SCH (21:30)
[2019-06-10] MEDS ORDERED: QUEtiapine 200 MG TAB PO SCH (21:30)
[2019-06-10 21:53] LABS: Glucose,Whole Blood 131 mg/dL (75-99)
[2019-06-11 00:54] LABS: Total Protein, Body Fluid 2950 mg/dL
[2019-06-11 01:11] LABS: Glucose, BF Source Pleural Fluid; Glucose, Body Fluid 96 mg/dL; LDH, Body Fluid Source Pleural Fluid
[2019-06-11] MEDS: HEPARIN SODIUM,PORCINE 5,000 UNIT/ML 1 ML VIAL SQ SCH ×2 (02:58→10:15)
[2019-06-11 03:12] LABS: Total Protein, Body Fluid 4510 mg/dL
[2019-06-11 03:30] LABS: Amylase, Fluid Source Pericardial Fluid; Glucose, Body Fluid 70 mg/dL
[2019-06-11 06:11] LABS: ALT 45 U/L (4-34); AST 34 U/L (14-36); African American GFR (CKD) >90 (>60 ml/min/1.73 sqM); Albumin 2.8 g/dL (3.5-5.0); Alkaline Phosphatase 129 U/L (38-126); Anion Gap 8 mmol/L; Blood Urea Nitrogen 21 mg/dL (7-17); Calcium 7.7 mg/dL (8.4-10.2); Carbon Dioxide 26 mmol/L (22-30); Chloride 103 mmol/L (98-107); Glucose 126 mg/dL (74-99); Non-African American GFR(CKD) >90 (>60 ml/min/1.73 sqM); Potassium 3.5 mmol/L (3.5-5.1); Sodium 137 mmol/L (137-145); Total Bilirubin 0.6 mg/dL (0.2-1.3); Total Protein 5.7 g/dL (6.3-8.2)
[2019-06-11 06:13] LABS: Glucose,Whole Blood 123 mg/dL (75-99)
[2019-06-11 06:13] LABS: Basophils % (A) 0 %; Eosinophils # (A) 0.1 k/uL (0-0.7); Eosinophils % (A) 1 %; HCT 33.8 % (34.0-46.0); HGB 10.9 gm/dL (11.4-16.0); Lymphocytes # (A) 0.6 k/uL (1.0-4.8); Lymphocytes % (A) 7 %; MCH 30.9 pg (25.0-35.0); MCHC 32.2 g/dL (31.0-37.0); Mean Platelet Volume 7.6; Monocytes # (A) 0.6 k/uL (0-1.0); Monocytes % (A) 6 %; Neutrophils # (A) 7.9 k/uL (1.3-7.7); Neutrophils % (A) 85 %; Platelet Count 336 k/uL (150-450); RBC 3.52 m/uL (3.80-5.40); WBC 9.3 k/uL (3.8-10.6)
[2019-06-11 06:20] LABS: ABG Base Excess 5.8 mmol/L; ABG HCO3 29 mmol/L (21-25); ABG Oxygen Saturation 95.6 % (94-97); ABG PCO2 38 mmHg (35-45); ABG PH 7.49 (7.35-7.45); ABG PO2 80 mmHg (83-108); ABG TCO2 30 mmol/L (19-24); Allen Test Performed? Yes
--- NOTE | 2019-06-11 06:30 | XR ---
EXAMINATION TYPE: XR chest 1V portable DATE OF EXAM: 06/11/2019 HISTORY: Post Operative Cardiac Surgery. REFERENCE: Previous study dated 06/10/2019. FINDINGS: There is continuing left basilar airspace disease. There is worsening right basilar airspac e disease. There is a small left effusion. The heart is enlarged. IMPRESSION: BIBASILAR PNEUMONIA, WORSENING ON THE RIGHT WITH AN ASSOCIATED LEFT-SIDED EFFUSION.
[2019-06-11] MEDS ORDERED: ACETAMINOPHEN TAB 500 MG TAB PO PRN (07:11)
[2019-06-11] MEDS ORDERED: ALBUMIN HUMAN 5% 250 ML in EMPTY BAG 1 BAG IVPB STA (07:25)
--- NOTE | 2019-06-11 07:49 | P.PN ---
Subjective Progress Note Date: 06/11/19 Principal diagnosis: Pericardial effusion/pleural effusion This is a very pleasant 58-year-old female patient who was transferred from [facility] for further evaluation off pericardial and pleural effusion. The patient does have past medical history significant for depression but no history of coronary artery disease or congestive heart failure or any cardiac arrhythmia and the patient never seen by a marking room supervisor in the past. She is taking medication for depression but the patient does not recall the name of the medication. For the last 3-4 days, she has been experiencing progressive shortness of breath with exertion and for the last day she was experiencing shortness of breath with laying flat in bed. Also yesterday she developed chest discomfort in the mid of the chest as well as. No dizziness or lightheadedness, heart racing or fluttering, or syncope. The patient stated that she gained weight which about 15 pounds started at the last summer till now. No lower extremities edema. Initially she presented to and walking clinic at [facility] and then subsequently she was transferred to the emergency room at [place] where a computed tomography scan of the chest was performed and revealed large right pleural and pericardial effusion was moderate left pleural effusion. An EKG was performed here and showed sinus rhythm with sinus tachycardia with low-voltage QRS. The patient is not aware of any prior cardiac history as a mentioned earlier. She is unaware of any prior thyroid disorder. She never seen by any physician regarding any autoimmune disease or connective tissue disease disorder. An echocardiogram is in process to be done. Currently the patient is hemodynamically stable and she is not on any vasopressors. She is in process also to be seen by the cardiothoracic surgeon for possible pericardial window. The patient was seen today, June [id number]. She underwent yesterday pericardial window and also she underwent right pleurocentesis. She was seen this morning. She did have an episode of atrial fibrillation with RVR and subsequently converted to normal sinus mechanism. She is now in sinus tach ycardia with a resting heart rate above 100 bpm the blood pressure has been marginal. We are going to give the patient an albumin and then start the patient on small dose of metoprolol at 12.5 mg by mouth twice a day and monitor the blood pressure very closely. She was started yesterday on colchicine which we will continue. We'll follow-up with the pathology of the pericardial/pleural fluid. Objective - Vital Signs Vital signs: Vital Signs Temp 98.7 F 06/11/19 04:00 Pulse 95 06/11/19 07:00 Resp 20 06/11/19 07:00 BP 91/46 06/11/19 07:00 Pulse Ox 93 L 06/11/19 07:00 Intake & Output 06/10/19 06/11/19 06/11/19 18:59 06:59 18:59 Intake Total 950 770 0 Output Total 675 835 0 Balance 275 -65 0 Weight 89 kg Intake: IV 950 Sodium Chloride 0.9% 1, 400 000 ml @ 125 mls/hr IV . Q8H NATACHA Rx#:[id number] Intake, IV Titration 100 Amount ceFAZolin 2 gm In Sodium 100 Chloride 0.9% 50 ml @ 100 mls/hr IVPB Q8HR NATACHA Rx# :[id number] Oral 670 0 Output: Chest Tube Drainage 70 Chest Tube 70 Urine 600 835 0 Estimated Blood Loss 5 Other: Voiding Method Toilet Bedside Commode # Voids 0 1 ABP, PAP, CO, CI - Last Documented Arterial Blood Pressure 85/64 - Constitutional General appearance: Present: no acute distress - Respiratory Respiratory: bilateral: diminished - Cardiovascular Rhythm: regular Heart sounds: normal: S1, S2 - Labs CBC & Chem 7: 06/11/19 05:44 06/11/19 05:44 Labs: Abnormal Lab Results - Last 24 Hours (Table) 06/10/19 06/10/19 06/10/19 Range/Units 02:50 16:16 16:16 RBC 3.60 L (3.80-5.40) m/uL Hgb 11.1 L (11.4-16.0) gm/dL Hct (34.0-46.0) % Neutrophils # (1.3-7.7) k/uL Lymphocytes # 0.7 L (1.0-4.8) k/uL ESR 58 H (0-20) mm/hr ABG pH (7.35-7.45) ABG pO2 (83-108) mmHg ABG HCO3 (21-25) mmol/L ABG Total CO2 (19-24) mmol/L BUN 19 H (7-17) mg/dL Glucose (74-99) mg/dL POC Glucose (mg/dL) (75-99) mg/dL Calcium 8.0 L (8.4-10.2) mg/dL ALT 60 H (4-34) U/L Alkaline Phosphatase 147 H (38-126) U/L Total Protein 6.1 L (6.3-8.2) g/dL Albumin 3.1 L (3.5-5.0) g/dL 06/10/19 06/11/19 06/11/19 Range/Units 21:51 05:44 05:44 RBC 3.52 L (3.80-5.40) m/uL Hgb 10.9 L (11.4-16.0) gm/dL Hct 33.8 L (34.0-46.0) % Neutrophils # 7.9 H (1.3-7.7) k/uL Lymphocytes # 0.6 L (1.0-4.8) k/uL ESR (0-20) mm/hr ABG pH (7.35-7.45) ABG pO2 (83-108) mmHg ABG HCO3 (21-25) mmol/L ABG Total CO2 (19-24) mmol/L BUN 21 H (7-17) mg/dL Glucose 126 H (74-99) mg/dL POC Glucose (mg/dL) 131 H (75-99) mg/dL Calcium 7.7 L (8.4-10.2) mg/dL ALT 45 H (4-34) U/L Alkaline Phosphatase 129 H (38-126) U/L Total Protein 5.7 L (6.3-8.2) g/dL Albumin 2.8 L (3.5-5.0) g/dL 06/11/19 06/11/19 Range/Units 06:11 06:18 RBC (3.80-5.40) m/uL Hgb (11.4-16.0) gm/dL Hct (34.0-46.0) % Neutrophils # (1.3-7.7) k/uL Lymphocytes # (1.0-4.8) k/uL ESR (0-20) mm/hr ABG pH 7.49 H (7.35-7.45) ABG pO2 80 L (83-108) mmHg ABG HCO3 29 H (21-25) mmol/L ABG Total CO2 30 H (19-24) mmol/L BUN (7-17) mg/dL Glucose (74-99) mg/dL POC Glucose (mg/dL) 123 H (75-99) mg/dL Calcium (8.4-10.2) mg/dL ALT (4-34) U/L Alkaline Phosphatase (38-126) U/L Total Protein (6.3-8.2) g/dL Albumin (3.5-5.0) g/dL Microbiology - Last 24 Hours (Table) 06/10/19 16:15 Gram Stain - Preliminary Pleural Fluid Body Fluid Culture - Preliminary 06/10/19 16:15 Anaerobic Culture - Preliminary Pleural Fluid 06/10/19 16:15 Fungal Culture - Preliminary Pleural Fluid 06/10/19 16:15 Acid Fast Bacilli Culture - Preliminary Pleural Fluid Assessment and Plan Assessment: Assessment #1 pleurisy with pericardial and pleural effusion #2 large pericardial effusion by computed tomography scan #3 large pleural effusion by computed tomography scan as well #4 history of depression Plan #1 give the patient a bolus of IV fluid #2 start the patient on small dose of metoprolol #3 monitors her blood pressure. Stop metoprolol into systolic pressure drop below 90 #4 continue colchicine #5 follow-up on the pathology of the IV fluid #6 repeat the echo tomorrow, limited echo to assess for any residual pericardial effusion
[2019-06-11] MEDS ORDERED: Potassium Replacement Protocol 1 EACH MISC MISCELLANE PRN (07:51)
[2019-06-11] MEDS: POTASSIUM CHLORIDE ER 20 MEQ TAB.ER PO SCH ×2 (08:24→10:14)
[2019-06-11] MEDS: COLCHICINE 0.6 MG EACH PO SCH ×2 (08:24→20:26)
--- NOTE | 2019-06-11 08:50 | P.PN ---
Subjective Progress Note Date: 06/11/19 On 06/11/2019 on seeing the patient for a follow-up. Note that the patient hasn't a pericardial window and she is postop day #1. The patient also had bilateral thoracentesis. The amount of fluid removed from the right was 1.2 L. Amount of fluid removed from the left was 700 mL. The pleural fluid showed no LVH of 198 and the fluid protein was 2.9 g and this is obviously a transudate type of fluids. No complications of the chest x-ray showed improvement in the lung aeration in the volume status after thoracentesis. Nevertheless, the patient continued to be BiPAP dependent and hypoxemic. Earlier this morning, she was given her valproate and Seroquel which made her even more lethargic. She is arousable and she follows simple commands however she seems to be quite sleepy, tolerating the BiPAP at a pressure of 12/5 cm of water and FiO2 of 70%. Blood. This showing a pH of 7.49 with a pCO2 of 38 and pO2 of 80. Note that the patient was placed on BiPAP immediately postop and she remained on BiPAP throughout the day yesterday and overnight. We did an attempt to put the patient on high flow oxygen at 15 L following the thoracentesis and this lasted several 3 AM this morning and ultimately she end up back on the BiPAP. She is afebrile. The pericardial tube is in place. Output from the tube is in the order of 26 mL throughout the night. No previous history of DVT. Nausea pulmon vonnie embolism. No cough. No sputum production. No chest pain. She is resting comfortably in bed. She seems to be BiPAP dependent. Her blood pressure was around 91/47 and based on that the patient was given to 50 mL of 5% albumin by the cardiothoracic surgical team. The fluid from the pericardium and from the pleural fluid is still pending terms of an unsteady. Objective - Vital Signs Vital signs: Vital Signs Temp 98.7 F 06/11/19 04:00 Pulse 95 06/11/19 07:00 Resp 20 06/11/19 07:00 BP 91/46 06/11/19 07:00 Pulse Ox 93 L 06/11/19 07:00 Intake & Output 06/10/19 06/11/19 06/11/19 18:59 06:59 18:59 Intake Total 950 770 0 Output Total 675 835 0 Balance 275 -65 0 Weight 89 kg Intake: IV 950 Sodium Chloride 0.9% 1, 400 000 ml @ 125 mls/hr IV . Q8H NATACHA Rx#:[id number] Intake, IV Titration 100 Amount ceFAZolin 2 gm In Sodium 100 Chloride 0.9% 50 ml @ 100 mls/hr IVPB Q8HR NATACHA Rx# :[id number] Oral 670 0 Output: Chest Tube Drainage 70 Chest Tube 70 Urine 600 835 0 Estimated Blood Loss 5 Other: Voiding Method Toilet Bedside Commode # Voids 0 1 ABP, PAP, CO, CI - Last Documented Arterial Blood Pressure 85/64 - Exam The patient is synchronous with the BiPAP which is at the pressure of 14/5 cm of water with an FiO2 of 70%. No signs of any obvious respiratory distress. No use of excessive muscle breathing at this point in time. Head exam was generally normal. There was no scleral icterus or corneal arcus. Mucous membranes were moist. Neck was supple and without jugular venous distension, thyromegaly, or carotid bruits. Carotids were easily palpable bilaterally. There was no adenopathy. Lungs sounds are diminished vision the left lung base. However, overall, the air entry is much improved compared to yesterday and thoracentesis. The patient's breath sounds bilaterally. No wheezes. No rhonchi. Cardiac exam revealed the PMI to be normally situated and sized. The rhythm was regular and no extrasystoles were noted during several minutes of auscultation. The first and second heart sounds were normal and physiologic splitting of the second heart sound was noted. There were no murmurs, rubs, clicks, or gallops. No rubs. A pericardial tube is in place. Abdominal exam revealed normal bowel sounds. The abdomen was soft, non-tender, and without masses, organomegaly, or appreciable enlargement of the abdominal aorta. Examination of the extremities revealed easily palpable radial, femoral and pedal pulses. There was no cyanosis, clubbing or edema. Examination of the skin revealed no evidence of significant rashes, suspicious appearing nevi or other concerning lesions. Neurologic the patient's liters which is very much arousable and follows commands. - Labs CBC & Chem 7: 06/11/19 05:44 06/11/19 05:44 Labs: Abnormal Lab Results - Last 24 Hours (Table) 06/10/19 06/10/19 06/10/19 Range/Units 02:50 16:16 16:16 RBC 3.60 L (3.80-5.40) m/uL Hgb 11.1 L (11.4-16.0) gm/dL Hct (34.0-46.0) % Neutrophils # (1.3-7.7) k/uL Lymphocytes # 0.7 L (1.0-4.8) k/uL ESR 58 H (0-20) mm/hr ABG pH (7.35-7.45) ABG pO2 (83-108) mmHg ABG HCO3 (21-25) mmol/L ABG Total CO2 (19-24) mmol/L BUN 19 H (7-17) mg/dL Glucose (74-99) mg/dL POC Glucose (mg/dL) (75-99) mg/dL Calcium 8.0 L (8.4-10.2) mg/dL ALT 60 H (4-34) U/L Alkaline Phosphatase 147 H (38-126) U/L Total Protein 6.1 L (6.3-8.2) g/dL Albumin 3.1 L (3.5-5.0) g/dL 06/10/19 06/11/19 06/11/19 Range/Units 21:51 05:44 05:44 RBC 3.52 L (3.80-5.40) m/uL Hgb 10.9 L (11.4-16.0) gm/dL Hct 33.8 L (34.0-46.0) % Neutrophils # 7.9 H (1.3-7.7) k/uL Lymphocytes # 0.6 L (1.0-4.8) k/uL ESR (0-20) mm/hr ABG pH (7.35-7.45) ABG pO2 (83-108) mmHg ABG HCO3 (21-25) mmol/L ABG Total CO2 (19-24) mmol/L BUN 21 H (7-17) mg/dL Glucose 126 H (74-99) mg/dL POC Glucose (mg/dL) 131 H (75-99) mg/dL Calcium 7.7 L (8.4-10.2) mg/dL ALT 45 H (4-34) U/L Alkaline Phosphatase 129 H (38-126) U/L Total Protein 5.7 L (6.3-8.2) g/dL Albumin 2.8 L (3.5-5.0) g/dL 06/11/19 06/11/19 Range/Units 06:11 06:18 RBC (3.80-5.40) m/uL Hgb (11.4-16.0) gm/dL Hct (34.0-46.0) % Neutrophils # (1.3-7.7) k/uL Lymphocytes # (1.0-4.8) k/uL ESR (0-20) mm/hr ABG pH 7.49 H (7.35-7.45) ABG pO2 80 L (83-108) mmHg ABG HCO3 29 H (21-25) mmol/L ABG Total CO2 30 H (19-24) mmol/L BUN (7-17) mg/dL Glucose (74-99) mg/dL POC Glucose (mg/dL) 123 H (75-99) mg/dL Calcium (8.4-10.2) mg/dL ALT (4-34) U/L Alkaline Phosphatase (38-126) U/L Total Protein (6.3-8.2) g/dL Albumin (3.5-5.0) g/dL Microbiology - Last 24 Hours (Table) 06/10/19 16:15 Gram Stain - Preliminary Pleural Fluid Body Fluid Culture - Preliminary 06/10/19 16:15 Anaerobic Culture - Preliminary Pleural Fluid 06/10/19 16:15 Fungal Culture - Preliminary Pleural Fluid 06/10/19 16:15 Acid Fast Bacilli Culture - Preliminary Pleural Fluid Assessment and Plan Plan: 1 Acute hypoxic respiratory failure maintained on BiPAP at a pressure of 14/5 cm of water and FiO2 of 70%. Exact cause is not clear. Extubated much improvement in her oxygenation general following the pericardial window and bilateral thoracentesis. Nevertheless, the patient seems to be fading gradually after being on high flow oxygen at 15 L, she is back on a BiPAP at a pressure of 14/5 cm of water. 2 large pericardial effusion post window, pericardial tube is still in place 3 bilateral pleural effusion post bilateral thoracentesis and the fluid seems to be transudative 4 history of bipolar disorder/depression 5 history of seizure disorder, therapeutic valproic acid level Plan I was anticipating much improvement in the patient's condition. I was anticipating improvement in oxygenation. Chest x-ray looks better and the patient does not have any significant residual pleural effusion. I noted that the origins CT angiogram that was done and did not show any pulmonary embolism. However, based ongoing hypoxemia, I think is reasonable to order another CT angiogram to reevaluate this awake hypoxemia. The patient on BiPAP for now. Output from the pericardial tube is minimal. Awaiting the fluid cytology from the pericardium and the pleural space. We'll scan this patient's chest regarding hypoxemia and the abdomen to screen for any occult malignancy. We'll continue to follow. The patient will be kept in ICU. Condition remains critic al. Valproic acid level is therapeutic.
[2019-06-11] MEDS ORDERED: METOPROLOL TARTRATE 12.5 MG TAB PO SCH (09:00)
--- NOTE | 2019-06-11 09:53 | CT ---
EXAMINATION TYPE: 1. Small to moderate bilateral pleural effusions DATE OF EXAM: 06/11/2019 REFERENCE: NONE HISTORY: Hypoxemia, rule out malignancy HISTORY: Post OP Paracardial window. CT DLP: 1245.9 mGy Automated exposure control for dose reduction was used. TECHNIQUE: Helical acquisition through the abdomen and pelvis was obtained following the oral ingesti on of without Oral Contrast and following intravenous administration of 100 mL of Isovue 370. The paulina a was reformatted in axial, coronal and sagittal projections. FINDINGS: There are moderate, bilateral pleural effusions. There is a small amount of pericardial fl uid which measures approximately 4.3 mm in thickness. There is relaxation atelectasis of the right robbie ng base and more focal consolidation at the left lung base. There is a pericardial drain in place. Th e heart is not enlarged. Within the abdomen, the liver is upper limits of normal in size measuring 17.3 cm. The liver slightly hypoattenuating and may be fatty infiltrated. The spleen and gallbladder are normal. Both adrenal glands are normal. Both kidneys demonstrate function. The left kidney is unremarkable. There is mild fullness of the albert al pelvis on the right. No definite ureteric calculus is seen. The bladder is distended. There appear to be sure device is within the pelvis. The uterus is unremarkable. The ovaries are not seen with certainty. There is no significant diverticular change and there is no radiographic evidence of diverticulitis. The appendix is not visualized with certainty. Small bowel caliber is normal. There is no free fluid and no free air. There is degenerative disease, hypertrophic spondylosis and mild facet arthropathy within the lumbar spine. IMPRESSION: 1. SMALL TO MODERATE BILATERAL PLEURAL EFFUSIONS. 2. MILD CONSOLIDATION AT THE LEFT LOWER LOBE. 3. SMALL PERICARDIAL EFFUSION. 4. POSTSURGICAL CHANGE. 5. PROBABLE MILD FATTY INFILTRATION OF THE LIVER. 6. DEGENERATIVE CHANGES WITHIN THE SPINE.
--- NOTE | 2019-06-11 09:58 | CT ---
EXAMINATION TYPE: CT angio chest DATE OF EXAM: 06/11/2019 9:35 AM COMPARISON: HISTORY: Post OP Paracardial window. CT DLP: 370.2 mGycm Automated exposure control for dose reduction was used. CONTRAST: CTA scan of the thorax is performed with IV Contrast, patient injected with 100 mL of Isovue 370, pul monary embolism protocol. . FINDINGS: There are [id number] pleural effusions bilaterally. There is consolidation at the le ft lung base. There is mild relaxation atelectasis at the right lung base. There is no significant axillary, internal mammary, mediastinal or hilar adenopathy. There is pulmonary embolus in the second order branch of the right upper lobe pulmonary artery. No em bolus is noted on the left. The aorta is normal in caliber without evidence of dissection. There is a small amount of pericardial fluid or thickening. There is a pericardial drain in place. There is no evidence of right heart strain. Visualized portions of the upper abdomen are otherwise un remarkable. There is hypertrophic spondylosis within the spine. IMPRESSION: 1. THIS EXAMINATION IS POSITIVE FOR PULMONARY EMBOLUS INVOLVING THE RIGHT UPPER LOBE PULMONARY ARTERY . 2. SMALL TO MODERATE BILATERAL PLEURAL EFFUSIONS. 3. LEFT BASILAR AIRSPACE DISEASE, EITHER REPRESENTING ATELECTASIS OR PNEUMONIA. 4. SMALL PERICARDIAL FLUID. 5. DEGENERATIVE CHANGES WITHIN THE SPINE.
[2019-06-11 11:35] LABS: Appearance,Urine Clear (Clear); Bilirubin,Urine Negative (Negative); Blood,Urine Negative (Negative); Color,Urine Yellow; Glucose,Urine (UA) Negative (Negative); Ketones,Urine 1+ (Negative); Leukocyte Esterase,Urine Negative (Negative); Nitrite,Urine Negative (Negative); Protein,Urine Trace (Negative); Specific Gravity,Urine 1.042 (1.001-1.035); Urobilinogen,Urine <2.0 mg/dL (<2.0)
--- NOTE | 2019-06-11 11:47 | P.PN ---
Subjective Progress Note Date: 06/11/19 Principal diagnosis: Large pericardial effusion and bilateral pleural effusions. Past medical history of bipolar disorder, depression, history of seizure disorder and suicidal ideation. POD #1 emergent subxiphoid pericardiostomy. POD #1 right and left thoracentesis performed by Dr. Jose Patient is laying in bed in the intensive care unit. She is in no acute distress. She denies any complaints of pain or shortness of breath at this time. She opens up her eyes easily with verbal stimuli, moves all 4 extremities appropriately with verbal stimuli, although seems more lethargic this morning. She continues on BiPAP support with pressure of 12/5 cm water with FiO2 70%. Oxygen saturations 93% with current BiPAP settings. Her blood gas this morning showed a pH of 7.49, pCO2 38, pO2 80, HCO3 29, base excess 5.8 and oxygen saturation 95.6. Her night nurse reports that the patient had an episode of atrial fibrillation with RVR last evening which was self-limiting and lasted only about 10 minutes. Her bedside telemetry showing normal sinus rhythm with a heart rate of 95 BPM. Blood pressure is 90/64 with a map of 72. The patient was restarted on her home meds by primary care service of valproate and Seroquel which could be contributing to her being more sleepy this morning. She remains afebrile Last 24 hours. She does complain of some lower abdominal distention. A subxiphoid chest tube remains in place to low continuous wall suction -20 cm H2O. Draining thin serosanguineous drainage with 140 mL output since surgery. No air leak is present. The night nurse also reports she had one episode of incontinence throughout the evening. Objective - Vital Signs Vital signs: Vital Signs Temp 97.3 F L 06/11/19 08:00 Pulse 89 06/11/19 11:00 Resp 15 06/11/19 11:00 BP 91/44 06/11/19 11:00 Pulse Ox 98 06/11/19 11:00 Intake & Output 06/10/19 06/11/19 06/11/19 18:59 06:59 18:59 Intake Total 950 770 0 Output Total 519 055 7519 Balance Weight 89 kg Intake: IV 950 Sodium Chloride 0.9% 1, 400 000 ml @ 125 mls/hr IV . Q8H [facility] Rx#:[id number] Intake, IV Titration 100 Amount ceFAZolin 2 gm In Sodium 100 Chloride 0.9% 50 ml @ 100 mls/hr IVPB Q8HR [facility] Rx# :[id number] Oral 670 0 Output: Chest Tube Drainage 70 Chest Tube 70 Urine 906 527 1252 Estimated Blood Loss 5 Other: Voiding Method Toilet Bedside Commode Bedside Commode # Voids 0 1 ABP, PAP, CO, CI - Last Documented Arterial Blood Pressure 85/64 - Constitutional Constitutional Comment(s): The patient is arousable, moving all 4 extremities and answering questions appropriately. General appearance: Present: cooperative, no acute distress, obese - Respiratory Details: Lung sounds essentially clear throughout, diminished bilateral bases. Respirations are symmetrical and nonlabored with BiPAP support. Current BiPAP settings are as follows: 12/5 cm water with FiO2 70%. Oxygen saturations 93% with current BiPAP settings. Subxiphoid chest tube remains in place to low continuous wall suction -20 cm H2O. No air leak is present. Draining thin serosanguineous drainage. - Cardiovascular Details: Regular rhythm and rate. S1 and S2 present, negative for S3, gallop or murmur. No edema is present. Sequential compression devices in place to her bilateral lower extremities. - Gastrointestinal Gastrointestinal Comment(s): Abdomen is soft, nontender and slightly distended to her lower abdomen. Hypoactive bowel sounds present all 4 abdominal quadrants. No guarding or rigidity. - Genitourinary Genitourinary Comment(s): Episode of incontinence last p.m. - Integumentary Integumentary Comment(s): Skin is warm and dry. No clubbing or cyanosis is present. Subxiphoid incision is clean, dry with a silver dressing in place. - Neurologic Neurologic: Present: CNII-XII intact - Musculoskeletal Musculoskeletal: Present: generalized weakness, strength equal bilaterally - Psychiatric Psychiatric: Present: A&O x's 3, appropriate affect, intact judgment & insight - Allied health notes Allied health notes reviewed: nursing - Labs CBC & Chem 7: 06/11/19 05:44 06/11/19 05:44 Labs: Abnormal Lab Results - Last 24 Hours (Table) 06/10/19 06/10/19 06/10/19 Range/Units 16:16 16:16 21:51 RBC 3.60 L (3.80-5.40) m/uL Hgb 11.1 L (11.4-16.0) gm/dL Hct (34.0-46.0) % Neutrophils # (1.3-7.7) k/uL Lymphocytes # 0.7 L (1.0-4.8) k/uL ABG pH (7.35-7.45) ABG pO2 (83-108) mmHg ABG HCO3 (21-25) mmol/L ABG Total CO2 (19-24) mmol/L BUN 19 H (7-17) mg/dL Glucose (74-99) mg/dL POC Glucose (mg/dL) 131 H (75-99) mg/dL Calcium 8.0 L (8.4-10.2) mg/dL ALT 60 H (4-34) U/L Alkaline Phosphatase 147 H (38-126) U/L Total Protein 6.1 L (6.3-8.2) g/dL Albumin 3.1 L (3.5-5.0) g/dL 06/11/19 06/11/19 06/11/19 Range/Units 05:44 05:44 06:11 RBC 3.52 L (3.80-5.40) m/uL Hgb 10.9 L (11.4-16.0) gm/dL Hct 33.8 L (34.0-46.0) % Neutrophils # 7.9 H (1.3-7.7) k/uL Lymphocytes # 0.6 L (1.0-4.8) k/uL ABG pH (7.35-7.45) ABG pO2 (83-108) mmHg ABG HCO3 (21-25) mmol/L ABG Total CO2 (19-24) mmol/L BUN 21 H (7-17) mg/dL Glucose 126 H (74-99) mg/dL POC Glucose (mg/dL) 123 H (75-99) mg/dL Calcium 7.7 L (8.4-10.2) mg/dL ALT 45 H (4-34) U/L Alkaline Phosphatase 129 H (38-126) U/L Total Protein 5.7 L (6.3-8.2) g/dL Albumin 2.8 L (3.5-5.0) g/dL 06/11/19 Range/Units 06:18 RBC (3.80-5.40) m/uL Hgb (11.4-16.0) gm/dL Hct (34.0-46.0) % Neutrophils # (1.3-7.7) k/uL Lymphocytes # (1.0-4.8) k/uL ABG pH 7.49 H (7.35-7.45) ABG pO2 80 L (83-108) mmHg ABG HCO3 29 H (21-25) mmol/L ABG Total CO2 30 H (19-24) mmol/L BUN (7-17) mg/dL Glucose (74-99) mg/dL POC Glucose (mg/dL) (75-99) mg/dL Calcium (8.4-10.2) mg/dL ALT (4-34) U/L Alkaline Phosphatase (38-126) U/L Total Protein (6.3-8.2) g/dL Albumin (3.5-5.0) g/dL Microbiology - Last 24 Hours (Table) 06/10/19 16:15 Gram Stain - Preliminary Pleural Fluid Body Fluid Culture - Preliminary 06/10/19 16:15 Anaerobic Culture - Preliminary Pleural Fluid 06/10/19 16:15 Fungal Culture - Preliminary Pleural Fluid 06/10/19 16:15 Acid Fast Bacilli Culture - Preliminary Pleural Fluid - Imaging and Cardiology Chest x-ray: report reviewed, image reviewed Assessment and Plan Assessment: 1. Large pericardial effusion, status post pericardial window 2. Bilateral pleural effusions, status post bilateral thoracentesis 3. History of bipolar disorder/depression 4. History of seizure disorder 5. History of suicidal ideation Plan: 1. Keep subxiphoid chest tube in place to low continuous wall suction -20 cm H2O. 2. Accurate I&O. 3. Encourage use of her incentive spirometry every hour while awake. 4. Pulmonary management recommendations per Dr. Jose. 5. Monitor daily labs and chest x-rays. Replace potassium per protocol. We will give potassium chloride ER 20 mEq by mouth 1 now, repeat dose in 1, then repeat a third dose 1 hour after. 6. Pain management per current when necessary orders. We will discontinue her [place] due to her being more sleepy this morning. We will start acetaminophen 650 mg by mouth every 6 hours when necessary pain. 7. Metoprolol 12.5 mg by mouth twice a day. 8. Give albumin 5% 250 mL IV 1 now. 9. GI and DVT prophylaxis. 10. Medical management other comorbidities per primary care service. 11. More recommendations follow based on patient's clinical course. Time with Patient: Greater than 30
--- NOTE | 2019-06-11 13:54 | P.PN ---
Subjective Progress Note Date: 06/11/19 Principal diagnosis: Shortness of breath, lethargic Patient was seen and examined. No acute events overnight. Has drained about 140 mL since pericardial window. Underwent thoracentesis bilaterally yesterday. Currently chest tube placed on low continuous suction. Patient is more lethargic today requiring BiPAP support this morning. She is currently on 7 L high flow nasal cannula. Blood gas this morning shows pH 7.49, pCO2 38, pO2 80, bicarb 29. Had an episode of A. fib with RVR last night which resolved. Patient reports slight improvement in her breathing but continued shortness of breath especially with sitting up. She denies any chest pain or palpitations. No nausea or vomiting. No fever or chills. Objective - Vital Signs Vital signs: Vital Signs Temp 97.3 F L 06/11/19 08:00 Pulse 89 06/11/19 11:00 Resp 15 06/11/19 11:00 BP 91/44 06/11/19 11:00 Pulse Ox 94 L 06/11/19 11:50 Intake & Output 06/10/19 06/11/19 06/11/19 18:59 06:59 18:59 Intake Total 950 770 0 Output Total 603 791 8903 Balance Weight 89 kg Intake: IV 950 Sodium Chloride 0.9% 1, 400 000 ml @ 125 mls/hr IV . Q8H [facility] Rx#:[id number] Intake, IV Titration 100 Amount ceFAZolin 2 gm In Sodium 100 Chloride 0.9% 50 ml @ 100 mls/hr IVPB Q8HR [facility] Rx# :[id number] Oral 670 0 Output: Chest Tube Drainage 70 Chest Tube 70 Urine 913 573 3977 Estimated Blood Loss 5 Other: Voiding Method Toilet Bedside Commode Bedside Commode # Voids 0 1 ABP, PAP, CO, CI - Last Documented Arterial Blood Pressure 85/64 - Exam General: [non toxic], [appears lethargic but easily arousable], [appears at stated age] Derm: [warm], [dry] Head: [atraumatic], [normocephalic], [symmetric] Eyes: [EOMI], [no lid lag], [anicteric sclera] Mouth: [no lip lesion], [mucus membranes moist] Cardiovascular: [S1S2 reg], [tachycardia], [positive DP pulse bilateral], [chest tube draining bloody serosanguineous fluid] Lungs: [CTA bilateral], [no rhonchi, no rales] , [no accessory muscle use] Abdominal: [soft], [ nontender to palpation], [no guarding], [no appreciable organomegaly] Ext: [no gross muscle atrophy], [no edema], [no contractures] Neuro: [no focal neuro deficits] Psych: [Alert], [oriented], [appropriate affect] - Labs CBC & Chem 7: 06/11/19 05:44 06/11/19 05:44 Labs: Abnormal Lab Results - Last 24 Hours (Table) 06/10/19 06/10/19 06/10/19 Range/Units 16:16 16:16 21:51 RBC 3.60 L (3.80-5.40) m/uL Hgb 11.1 L (11.4-16.0) gm/dL Hct (34.0-46.0) % Neutrophils # (1.3-7.7) k/uL Lymphocytes # 0.7 L (1.0-4.8) k/uL ABG pH (7.35-7.45) ABG pO2 (83-108) mmHg ABG HCO3 (21-25) mmol/L ABG Total CO2 (19-24) mmol/L BUN 19 H (7-17) mg/dL Glucose (74-99) mg/dL POC Glucose (mg/dL) 131 H (75-99) mg/dL Calcium 8.0 L (8.4-10.2) mg/dL ALT 60 H (4-34) U/L Alkaline Phosphatase 147 H (38-126) U/L Total Protein 6.1 L (6.3-8.2) g/dL Albumin 3.1 L (3.5-5.0) g/dL Ur Specific [place] (1.001-1.035) Urine Protein (Negative) Urine Ketones (Negative) 06/11/19 06/11/19 06/11/19 Range/Units 05:44 05:44 06:11 RBC 3.52 L (3.80-5.40) m/uL Hgb 10.9 L (11.4-16.0) gm/dL Hct 33.8 L (34.0-46.0) % Neutrophils # 7.9 H (1.3-7.7) k/uL Lymphocytes # 0.6 L (1.0-4.8) k/uL ABG pH (7.35-7.45) ABG pO2 (83-108) mmHg ABG HCO3 (21-25) mmol/L ABG Total CO2 (19-24) mmol/L BUN 21 H (7-17) mg/dL Glucose 126 H (74-99) mg/dL POC Glucose (mg/dL) 123 H (75-99) mg/dL Calcium 7.7 L (8.4-10.2) mg/dL ALT 45 H (4-34) U/L Alkaline Phosphatase 129 H (38-126) U/L Total Protein 5.7 L (6.3-8.2) g/dL Albumin 2.8 L (3.5-5.0) g/dL Ur Specific [place] (1.001-1.035) Urine Protein (Negative) Urine Ketones (Negative) 06/11/19 06/11/19 Range/Units 06:18 11:03 RBC (3.80-5.40) m/uL Hgb (11.4-16.0) gm/dL Hct (34.0-46.0) % Neutrophils # (1.3-7.7) k/uL Lymphocytes # (1.0-4.8) k/uL ABG pH 7.49 H (7.35-7.45) ABG pO2 80 L (83-108) mmHg ABG HCO3 29 H (21-25) mmol/L ABG Total CO2 30 H (19-24) mmol/L BUN (7-17) mg/dL Glucose (74-99) mg/dL POC Glucose (mg/dL) (75-99) mg/dL Calcium (8.4-10.2) mg/dL ALT (4-34) U/L Alkaline Phosphatase (38-126) U/L Total Protein (6.3-8.2) g/dL Albumin (3.5-5.0) g/dL Ur Specific [place] 1.042 H (1.001-1.035) Urine Protein Trace H (Negative) Urine Ketones 1+ H (Negative) Microbiology - Last 24 Hours (Table) 06/10/19 16:15 Gram Stain - Preliminary Pleural Fluid Body Fluid Culture - Preliminary 06/10/19 16:15 Anaerobic Culture - Preliminary Pleural Fluid 06/10/19 16:15 Fungal Culture - Preliminary Pleural Fluid 06/10/19 16:15 Acid Fast Bacilli Culture - Preliminary Pleural Fluid Assessment and Plan Assessment: Acute hypoxic respiratory failure due to PE and bilateral pleural effusion Hypotension Metabolic encephalopathy Large pericardial effusion Bilateral pleural effusion Anemia Elevated BUN Elevated ALT and alkaline phosphatase Patient is currently on 7 L high flow oxygen. Earlier on BiPAP. CTA chest PE positive for PE. Chest x-ray shows bibasilar pneumonia and effusion. Plans: Start heparin drip as discussed with RN. Supplemental O2 to maintain O2 saturation greater than 92%. Underwent thoracentesis yesterday, transudate, cultures are pending. Pulmonology following. BP 91/44. CTA chest positive for PE. Echocardiogram shows EF 60-65% with normal diastolic function. Plans: Given albumin today by cardiothoracic surgery. She is also receiving treatment for PE. She is also receiving metoprolol 12.5 mg by mouth twice a day that was started by cardiothoracic surgery. Continue to monitor vitals. Patient more lethargic this morning. She was given Depakote and Seroquel. Plans: Discontinue Depakote and Seroquel. Continue to monitor. Her exact cause for pericardial effusion is unknown. Status post pericardial window with chest tube placed on negative suction. Plans: Continue chest tube as per cardiothoracic surgery. Continue colchicine started by cardiology. Pericardial fluid analysis is pending. She is currently hemodynamically stable. Follow cardiothoracic recommendations. Status post thoracentesis bilaterally. Echocardiogram as above. Plans: Follow culture results of the pleural fluid. Pulmonology is following. Hemoglobin is 10.9, normocytic. Plans: We will continue to monitor her hemoglobin and repeat CBC on a daily basis. Patient with elevated BUN of 21. Creatinine is within normal limits. This possibly related to dehydration. Plans: Plan is to avoid nephrotoxins and repeat CMP tomorrow morning. Patient has elevated ALT and alkaline phosphatase. This is of unknown significance. Plans: We will repeat CMP tomorrow morning. [Patient diagnosed with PE. Heparin drip will be started today. She is hypotensive today, more confused with lethargy. Seroquel and Depakote has been discontinued. Fluid analysis from the pericardium and pleura is pending. She is pending clinical improvement. Prognosis is guarded. Likely DC in 2-3 days.]
[2019-06-11] MEDS ORDERED: HEPARIN SODIUM,PORCINE 5,000 UNIT/ML 1 ML VIAL IV ONE (15:08)
[2019-06-11] MEDS ORDERED: HEPARIN SODIUM,PORCINE 5,000 UNIT/ML 1 ML VIAL IV PRN (15:08)
[2019-06-11] MEDS: HEPARIN SOD,PORK IN 0.45% NACL 25,000 UNIT in 0.45% NACL 1 250ML.BAG IV SCH (15:38)
[2019-06-11] MEDS ORDERED: DEXTROSE 5% IN WATER 100 ML with AMIODARONE 150 MG IV ONE (16:21)
[2019-06-11] MEDS ORDERED: AMIODARONE 360 MG in DEXTROSE 5% IN WATER 200 ML IV ONE ×2 (16:21)
[2019-06-11] MEDS ORDERED: METOPROLOL TARTRATE 12.5 MG TAB PO STA (16:36)
[2019-06-11 17:15] LABS: INR 1.3 (<1.2)
[2019-06-11] MEDS: METOPROLOL TARTRATE 25 MG TAB PO SCH (20:26)
[2019-06-11] MEDS: AMIODARONE 300 MG in DEXTROSE 5% IN WATER 250 ML IV SCH ×2 (23:08)
[2019-06-12 04:27] LABS: Basophils % (A) 0 %; Eosinophils # (A) 0.2 k/uL (0-0.7); Eosinophils % (A) 3 %; HCT 32.9 % (34.0-46.0); HGB 10.5 gm/dL (11.4-16.0); Lymphocytes # (A) 0.8 k/uL (1.0-4.8); Lymphocytes % (A) 12 %; MCH 30.8 pg (25.0-35.0); MCHC 31.8 g/dL (31.0-37.0); MCV 97.1 fL (80.0-100.0); Mean Platelet Volume 8.5; Monocytes # (A) 0.5 k/uL (0-1.0); Monocytes % (A) 8 %; Neutrophils # (A) 5.1 k/uL (1.3-7.7); Neutrophils % (A) 76 %; Platelet Count 350 k/uL (150-450); RBC 3.39 m/uL (3.80-5.40); RDW 12.9 % (11.5-15.5); WBC 6.7 k/uL (3.8-10.6)
[2019-06-12 04:46] LABS: ALT 29 U/L (4-34); AST 26 U/L (14-36); African American GFR (CKD) >90 (>60 ml/min/1.73 sqM); Albumin 2.8 g/dL (3.5-5.0); Alkaline Phosphatase 115 U/L (38-126); Anion Gap 3 mmol/L; Blood Urea Nitrogen 16 mg/dL (7-17); Calcium 8.1 mg/dL (8.4-10.2); Carbon Dioxide 28 mmol/L (22-30); Chloride 104 mmol/L (98-107); Glucose 105 mg/dL (74-99); Non-African American GFR(CKD) >90 (>60 ml/min/1.73 sqM); Potassium 4.2 mmol/L (3.5-5.1); Sodium 135 mmol/L (137-145); Total Bilirubin 0.4 mg/dL (0.2-1.3); Total Protein 5.5 g/dL (6.3-8.2)
--- NOTE | 2019-06-12 05:58 | XR ---
EXAMINATION TYPE: XR chest 1V portable DATE OF EXAM: 06/12/2019 HISTORY: Post Operative Cardiac Surgery. REFERENCE: Previous study dated 06/11/2019. FINDINGS: There continues be bibasilar airspace disease. There are bilateral effusions. Heart size is upper limits of normal. IMPRESSION: 1. CONTINUING BIBASILAR AIRSPACE DISEASE. 2. SMALL, BILATERAL EFFUSIONS.
--- NOTE | 2019-06-12 08:21 | P.PN ---
Subjective Progress Note Date: 06/12/19 Principal diagnosis: Pericardial effusion/pleural effusion This is a very pleasant 58-year-old female patient who was transferred from [facility] for further evaluation off pericardial and pleural effusion. The patient does have past medical history significant for depression but no history of coronary artery disease or congestive heart failure or any cardiac arrhythmia and the patient never seen by a crop roller in the past. She is taking medication for depression but the patient does not recall the name of the medication. For the last 3-4 days, she has been experiencing progressive shortness of breath with exertion and for the last day she was experiencing shortness of breath with laying flat in bed. Also yesterday she developed chest discomfort in the mid of the chest as well as. No dizziness or lightheadedness, heart racing or fluttering, or syncope. The patient stated that she gained weight which about 15 pounds started at the last summer till now. No lower extremities edema. Initially she presented to and walking clinic at [facility] and then subsequently she was transferred to the emergency room at [facility] where a computed tomography scan of the chest was performed and revealed large right pleural and pericardial effusion was moderate left pleural effusion. An EKG was performed here and showed sinus rhythm with sinus tachycardia with low-voltage QRS. The patient is not aware of any prior cardiac history as a mentioned earlier. She is unaware of any prior thyroid disorder. She never seen by any physician regarding any autoimmune disease or connective tissue disease disorder. An echocardiogram is in process to be done. Currently the patient is hemodynamically stable and she is not on any vasopressors. She is in process also to be seen by the cardiothoracic surgeon for possible pericardial window. The patient was seen today, June 122019. She is doing better overall. She is definitely not as lethargic as yesterday. She was sitting in the chair and she is awake, alert, oriented 3. No more episodes of atrial fibrillation with RVR since she was started on metoprolol. She has been maintaining normal sinus mechanism. The blood pressure continues to be marginal. The chest x-ray today showed bilateral pleural effusion. The pericardial tube is out and she continues to have the chest tube in. We will follow-up on the pathology of the pericardial/pleural fluid. Objective - Vital Signs Vital signs: Vital Signs Temp 98.3 F 06/12/19 04:00 Pulse 98 06/12/19 07:00 Resp 27 H 06/12/19 07:00 BP 98/66 06/12/19 07:00 Pulse Ox 93 L 06/12/19 06:00 Intake & Output 06/11/19 06/12/19 06/12/19 18:59 06:59 18:59 Intake Total 338.275 376.063 118 Output Total 2155 605 40 Balance -1816.725 -228.937 78 Weight 90.3 kg Intake: IV 320 Sodium Chloride 0.9% 1, 320 000 ml @ 125 mls/hr IV . Q8H [facility] Rx#:[id number] Intake, IV Titration 18.275 136.063 Amount Heparin Sod,Pork in 0.45% 18.275 86.063 NaCl 25,000 unit In 0.45 % NaCl 1 250ml.bag @ 11 UNITS/KG/HR 9.79 mls/hr IV .Q24H [facility] Rx#: [id number] ceFAZolin 2 gm In Sodium 50 Chloride 0.9% 50 ml @ 100 mls/hr IVPB Q8HR [facility] Rx# :[id number] Oral 0 240 118 Output: Chest Tube Drainage 20 Chest Tube 20 Urine 2135 605 40 Other: Voiding Method Bedside Commode Indwelling Catheter ABP, PAP, CO, CI - Last Documented Arterial Blood Pressure 85/64 - Constitutional General appearance: Present: no acute distress - Respiratory Respiratory: bilateral: diminished - Cardiovascular Rhythm: regular Heart sounds: normal: S1, S2 - Labs CBC & Chem 7: 06/12/19 03:52 06/12/19 03:52 Labs: Abnormal Lab Results - Last 24 Hours (Table) 06/11/19 06/11/19 06/11/19 Range/Units 11:03 15:46 16:40 RBC (3.80-5.40) m/uL Hgb (11.4-16.0) gm/dL Hct (34.0-46.0) % Lymphocytes # (1.0-4.8) k/uL PT 13.0 H (9.0-12.0) sec INR 1.3 H (<1.2) APTT >200.0 H* 132.0 H* (22.0-30.0) sec Sodium (137-145) mmol/L Glucose (74-99) mg/dL Calcium (8.4-10.2) mg/dL Total Protein (6.3-8.2) g/dL Albumin (3.5-5.0) g/dL Ur Specific [place] 1.042 H (1.001-1.035) Urine Protein Trace H (Negative) Urine Ketones 1+ H (Negative) 06/12/19 06/12/19 06/12/19 Range/Units 03:52 03:52 03:52 RBC 3.39 L (3.80-5.40) m/uL Hgb 10.5 L (11.4-16.0) gm/dL Hct 32.9 L (34.0-46.0) % Lymphocytes # 0.8 L (1.0-4.8) k/uL PT (9.0-12.0) sec INR (<1.2) APTT 31.6 H (22.0-30.0) sec Sodium 135 L (137-145) mmol/L Glucose 105 H (74-99) mg/dL Calcium 8.1 L (8.4-10.2) mg/dL Total Protein 5.5 L (6.3-8.2) g/dL Albumin 2.8 L (3.5-5.0) g/dL Ur Specific [place] (1.001-1.035) Urine Protein (Negative) Urine Ketones (Negative) Microbiology - Last 24 Hours (Table) 06/10/19 16:15 Gram Stain - Preliminary Pleural Fluid Body Fluid Culture - Preliminary 06/10/19 16:15 Acid Fast Bacilli Smear - Final Pleural Fluid Acid Fast Bacilli Culture - Preliminary Assessment and Plan Assessment: Assessment #1 pleurisy with pericardial and pleural effusion #2 large pericardial effusion by computed tomography scan #3 large pleural effusion by computed tomography scan as well #4 history of depression Plan #1 continue the current medical regimen #2 continue metoprolol as well as colchicine #3 she has been maintaining normal sinus mechanism #4 follow-up with the patient
[2019-06-12] MEDS: METOPROLOL TARTRATE 25 MG TAB PO SCH ×2 (09:04→20:55)
[2019-06-12] MEDS: AMIODARONE 300 MG in DEXTROSE 5% IN WATER 250 ML IV SCH ×2 (09:05)
--- NOTE | 2019-06-12 09:39 | P.PN ---
Subjective Progress Note Date: 06/12/19 On 06/11/2019 on seeing the patient for a follow-up. Note that the patient hasn't a pericardial window and she is postop day #1. The patient also had bilateral thoracentesis. The amount of fluid removed from the right was 1.2 L. Amount of fluid removed from the left was 700 mL. The pleural fluid showed no LVH of 198 and the fluid protein was 2.9 g and this is obviously a transudate type of fluids. No complications of the chest x-ray showed improvement in the lung aeration in the volume status after thoracentesis. Nevertheless, the patient continued to be BiPAP dependent and hypoxemic. Earlier this morning, she was given her valproate and Seroquel which made her even more lethargic. She is arousable and she follows simple commands however she seems to be quite sleepy, tolerating the BiPAP at a pressure of 12/5 cm of water and FiO2 of 70%. Blood. This showing a pH of 7.49 with a pCO2 of 38 and pO2 of 80. Note that the patient was placed on BiPAP immediately postop and she remained on BiPAP throughout the day yesterday and overnight. We did an attempt to put the patient on high flow oxygen at 15 L following the thoracentesis and this lasted several 3 AM this morning and ultimately she end up back on the BiPAP. She is afebrile. The pericardial tube is in place. Output from the tube is in the order of 26 mL throughout the night. No previous history of DVT. Nausea pulmon vonnie embolism. No cough. No sputum production. No chest pain. She is resting comfortably in bed. She seems to be BiPAP dependent. Her blood pressure was around 91/47 and based on that the patient was given to 50 mL of 5% albumin by the cardiothoracic surgical team. The fluid from the pericardium and from the pleural fluid is still pending terms of an unsteady. On today's evaluation of 06/12/2019 and seeing the patient for a follow-up. The patient is postop following pericardial window and the patient is postop day #2. The patient also had bilateral thoracentesis evacuating 1.2 L from the right and 700 mL from the left. Yesterday, the patient was found to be quite lethargic and hypoxic despite being on a BiPAP. Based on that, a CT angiogram was done and the CT angiogram showed small bilateral pleural effusions, atelectatic changes in lung bases and a right upper lobe pulmonary embolism for which the patient was started on IV heparin. CAT scan of the abdomen was negative. During the course of the treatment, the patient improved and currently she is down to 6 L of oxygen by nasal cannula. She is awake and alert and she is following commands and answering questions. She is not having any significant chest pain. Shortness of breath is improved. Pericardial tube is in place and the patient is having minimal output. The patient is currently on colchicine. The load analysis from the pericardial and the pleural fluid is still pending for now. The chest x-ray from today showing some reactivation the right and a left-sided pleural effusion and this can be confirmed on today's examination. She is worried that she is getting progressively more depressed. The patient has been on high dose of Seroquel 600 mg at bedtime and Depakote 1500 mg by mouth daily and both of these medications will be resumed. Note that her difficulty with her service car driver earlier at 18. No fever. No chills. She is using incentive spirometer and she is pulling approximately 7 50 mL. As mentioned, she has been weaned down to 6 L. The CAT scan of the abdomen showed some significant bladder distention. A Burton catheter was inserted and immediately more than 1 L of urine output was obtained. There is concern that the patient is having some urinary retention. The nursing staff was inserted the Burton catheter to me that there is no evidence of any bladder or vaginal prolapse at this point in time. Other issue is cardiac arrhythmias were the patient was having short runs of atrial fibrillation less than 7 minutes. She converted back to normal sinus rhythm. Amiodarone was not started. The patient remains on IV heparin for now Objective - Vital Signs Vital signs: Vital Signs Temp 98.3 F 06/12/19 04:00 Pulse 98 06/12/19 07:00 Resp 27 H 06/12/19 07:00 BP 98/66 06/12/19 07:00 Pulse Ox 93 L 06/12/19 06:00 Intake & Output 06/11/19 06/12/19 06/12/19 18:59 06:59 18:59 Intake Total 338.275 376.063 118 Output Total 2155 605 40 Balance -1816.725 -228.937 78 Weight 90.3 kg Intake: IV 320 Sodium Chloride 0.9% 1, 320 000 ml @ 125 mls/hr IV . Q8H NATACHA Rx#:[id number] Intake, IV Titration 18.275 136.063 Amount Heparin Sod,Pork in 0.45% 18.275 86.063 NaCl 25,000 unit In 0.45 % NaCl 1 250ml.bag @ 11 UNITS/KG/HR 9.79 mls/hr IV .Q24H NATACHA Rx#: [id number] ceFAZolin 2 gm In Sodium 50 Chloride 0.9% 50 ml @ 100 mls/hr IVPB Q8HR NATACHA Rx# :[id number] Oral 0 240 118 Output: Chest Tube Drainage 20 Chest Tube 20 Urine 2135 605 40 Other: Voiding Method Bedside Commode Indwelling Catheter ABP, PAP, CO, CI - Last Documented Arterial Blood Pressure 85/64 - Exam The patient is sitting up on the recliner. She is on 6 L of oxygen by nasal cannula., Comfortable following commands and answering questions appropriately. Head exam was generally normal. There was no scleral icterus or corneal arcus. Mucous membranes were moist. Neck was supple and without jugular venous distension, thyromegaly, or carotid bruits. Carotids were easily palpable bilaterally. There was no adenopathy. Lungs sounds are diminished vision the left lung base. However, overall, the air entry is much improved compared to yesterday and thoracentesis. The patient's breath sounds bilaterally. No wheezes. No rhonchi. Nevertheless, on today's evaluation there is still some diminished breath sounds in bronchial breath sounds in the lung bases bilaterally. There is also some dullness to percussion. Cardiac exam revealed the PMI to be normally situated and sized. The rhythm was regular and no extrasystoles were noted during several minutes of auscultation. The first and second heart sounds were normal and physiologic splitting of the second heart sound was noted. There were no murmurs, rubs, clicks, or gallops. No rubs. A pericardial tube is in place. Abdominal exam revealed normal bowel sounds. The abdomen was soft, non-tender, and without masses, organomegaly, or appreciable enlargement of the abdominal aorta. Examination of the extremities revealed easily palpable radial, femoral and pedal pulses. There was no cyanosis, clubbing or edema. Examination of the skin revealed no evidence of significant rashes, suspicious appearing nevi or other concerning lesions. Neurologic the patient's liters which is very much arousable and follows commands. - Labs CBC & Chem 7: 06/12/19 03:52 06/12/19 03:52 Labs: Abnormal Lab Results - Last 24 Hours (Table) 06/11/19 06/11/19 06/11/19 Range/Units 11:03 15:46 16:40 RBC (3.80-5.40) m/uL Hgb (11.4-16.0) gm/dL Hct (34.0-46.0) % Lymphocytes # (1.0-4.8) k/uL PT 13.0 H (9.0-12.0) sec INR 1.3 H (<1.2) APTT >200.0 H* 132.0 H* (22.0-30.0) sec Sodium (137-145) mmol/L Glucose (74-99) mg/dL Calcium (8.4-10.2) mg/dL Total Protein (6.3-8.2) g/dL Albumin (3.5-5.0) g/dL Ur Specific [place] 1.042 H (1.001-1.035) Urine Protein Trace H (Negative) Urine Ketones 1+ H (Negative) 06/12/19 06/12/19 06/12/19 Range/Units 03:52 03:52 03:52 RBC 3.39 L (3.80-5.40) m/uL Hgb 10.5 L (11.4-16.0) gm/dL Hct 32.9 L (34.0-46.0) % Lymphocytes # 0.8 L (1.0-4.8) k/uL PT (9.0-12.0) sec INR (<1.2) APTT 31.6 H (22.0-30.0) sec Sodium 135 L (137-145) mmol/L Glucose 105 H (74-99) mg/dL Calcium 8.1 L (8.4-10.2) mg/dL Total Protein 5.5 L (6.3-8.2) g/dL Albumin 2.8 L (3.5-5.0) g/dL Ur Specific [place] (1.001-1.035) Urine Protein (Negative) Urine Ketones (Negative) Microbiology - Last 24 Hours (Table) 06/10/19 16:15 Gram Stain - Preliminary Pleural Fluid Body Fluid Culture - Preliminary 06/10/19 16:15 Acid Fast Bacilli Smear - Final Pleural Fluid Acid Fast Bacilli Culture - Preliminary Assessment and Plan Plan: 1 Acute hypoxic respiratory failure most likely multifactorial. The patient atelectatic changes and large pleural effusions. The fluid was drained. There is some recurrence of the pleural effusion bilaterally in smaller amounts. 1.2 L of fluid was aspirated from the right and 700 from the left. There may be also a pulmonary embolism in the right upper lobe contributing to hypoxemia although this is not felt to be a major contributing factor. The patient is on IV heparin. I'm going to start the patient IV Solu-Medrol and combination for colchicine as the patient is felt to have an underlying pleuritis contributing to cardiac ablation of the pleural effusion. 2 large pericardial effusion post window, pericardial tube is still in place 3 bilateral pleural effusion post bilateral thoracentesis and the fluid seems to be transudative 4 history of bipolar disorder/depression on Seroquel 5 history of seizure disorder, therapeutic valproic acid level 6 short runs of paroxysmal atrial fibrillation currently in normal sinus rhythm 7 urine retention and Burton catheter was inserted. Consider a urology evaluation. Plan Incentive spirometer IV heparin Start IV Solu-Medrol 40 mg every 12 hours along with the colchicine Monitor output from the pericardial tube Wean down the FiO2 as tolerated to maintain a saturation above 90% Restart valproic acid Restart Seroquel a lower dose of 300 milligrams Awaiting fluid cytology Sed rate is elevated. Awaiting connective tissue disease workup including FABIOLA and rheumatoid factor. The TSH was within normal limits.
--- NOTE | 2019-06-12 12:09 | P.PN ---
Subjective Progress Note Date: 06/12/19 Principal diagnosis: Shortness of breath, lethargic Patient was seen and examined. No acute events overnight. Has drained minimal fluid overnight since pericardial window as discussed with RN, 10 mL per shift. Underwent thoracentesis bilaterally yesterday, draining 1.2 L from the right lung and 700 mL from the left lung. Currently chest tube placed on waterseal. She was evaluated for PE due to higher oxygen requirements and BiPAP support which was positive. She was started on heparin drip and has been transitioned to 6 L high flow. Seroquel and Depakote were discontinued yesterday due to altered mentation and is going to be restarted today at a lower dose. Chest x- ray this morning shows continuing bibasilar airspace disease along with small bilateral effusions. Patient is currently sitting up in the recliner. Patient reports significant improvement in her breathing since yesterday. She denies any chest pain or palpitations. No nausea or vomiting. No fever or chills. Objective - Vital Signs Vital signs: Vital Signs Temp 98.3 F 06/12/19 04:00 Pulse 98 06/12/19 07:00 Resp 27 H 06/12/19 07:00 BP 98/66 06/12/19 07:00 Pulse Ox 93 L 06/12/19 06:00 Intake & Output 06/11/19 06/12/19 06/12/19 18:59 06:59 18:59 Intake Total 338.275 376.063 118 Output Total 2155 605 40 Balance -1816.725 -228.937 78 Weight 90.3 kg Intake: IV 320 Sodium Chloride 0.9% 1, 320 000 ml @ 125 mls/hr IV . Q8H NATACHA Rx#:[id number] Intake, IV Titration 18.275 136.063 Amount Heparin Sod,Pork in 0.45% 18.275 86.063 NaCl 25,000 unit In 0.45 % NaCl 1 250ml.bag @ 11 UNITS/KG/HR 9.79 mls/hr IV .Q24H NATACHA Rx#: [id number] ceFAZolin 2 gm In Sodium 50 Chloride 0.9% 50 ml @ 100 mls/hr IVPB Q8HR NATACHA Rx# :[id number] Oral 0 240 118 Output: Chest Tube Drainage 20 Chest Tube 20 Urine 2135 605 40 Other: Voiding Method Bedside Commode Indwelling Catheter ABP, PAP, CO, CI - Last Documented Arterial Blood Pressure 85/64 - Exam General: [non toxic], [easily arousable on 6 L high flow], [appears at stated age] Derm: [warm], [dry] Head: [atraumatic], [normocephalic], [symmetric] Eyes: [EOMI], [no lid lag], [anicteric sclera] Mouth: [no lip lesion], [mucus membranes moist] Cardiovascular: [S1S2 reg], [tachycardia], [positive DP pulse bilateral], [chest tube draining bloody serosanguineous fluid on waterseal] Lungs: [Clear to auscultation with decreased breath sounds at the bases], [no r [place], no rales] , [no accessory muscle use] Abdominal: [soft], [ nontender to palpation], [no guarding], [no appreciable organomegaly] Ext: [no gross muscle atrophy], [no edema], [no contractures] Neuro: [no focal neuro deficits] Psych: [Alert], [oriented], [appropriate affect] - Labs CBC & Chem 7: 06/12/19 03:52 06/12/19 03:52 Labs: Abnormal Lab Results - Last 24 Hours (Table) 06/11/19 06/11/19 06/12/19 Range/Units 15:46 16:40 03:52 RBC 3.39 L (3.80-5.40) m/uL Hgb 10.5 L (11.4-16.0) gm/dL Hct 32.9 L (34.0-46.0) % Lymphocytes # 0.8 L (1.0-4.8) k/uL PT 13.0 H (9.0-12.0) sec INR 1.3 H (<1.2) APTT >200.0 H* 132.0 H* (22.0-30.0) sec Sodium (137-145) mmol/L Glucose (74-99) mg/dL Calcium (8.4-10.2) mg/dL Total Protein (6.3-8.2) g/dL Albumin (3.5-5.0) g/dL 06/12/19 06/12/1920 Range/Units 03:52 03:52 10:28 RBC (3.80-5.40) m/uL Hgb (11.4-16.0) gm/dL Hct (34.0-46.0) % Lymphocytes # (1.0-4.8) k/uL PT (9.0-12.0) sec INR (<1.2) APTT 31.6 H 45.8 H (22.0-30.0) sec Sodium 135 L (137-145) mmol/L Glucose 105 H (74-99) mg/dL Calcium 8.1 L (8.4-10.2) mg/dL Total Protein 5.5 L (6.3-8.2) g/dL Albumin 2.8 L (3.5-5.0) g/dL Microbiology - Last 24 Hours (Table) 06/10/19 16:15 Gram Stain - Preliminary Pleural Fluid Body Fluid Culture - Preliminary 06/10/19 16:15 Acid Fast Bacilli Smear - Final Pleural Fluid Acid Fast Bacilli Culture - Preliminary Assessment and Plan Assessment: Acute hypoxic respiratory failure due to PE and bilateral pleural effusion Hypotension Metabolic encephalopathy Large pericardial effusion Bilateral pleural effusion Anemia Patient is currently on 6 L high flow oxygen. CTA chest PE positive for PE. Chest x-ray shows bibasilar pneumonia and effusion. Plans: Continue heparin drip. Supplemental O2 to maintain O2 saturation greater than 92%. Underwent thoracentesis 06/10, transudate, cultures are pending. Pulmonology following. BP 98/66, improving. CTA chest positive for PE. Echocardiogram shows EF 60-65% with normal diastolic function. Plans: Given albumin 06/10 by cardiothoracic surgery. She is also receiving treatment for PE. She is also receiving metoprolol 12.5 mg by mouth twice a day that was started by cardiothoracic surgery. Continue to monitor vitals. Patient was lethargic on 06/10 but her mentation has improved today. She was g iven Depakote and Seroquel. Plans: Restart Depakote and Seroquel at a lower dose. Continue to monitor. Her exact cause for pericardial effusion is unknown. Status post pericardial window with chest tube placed on waterseal. Plans: Continue chest tube as per cardiothoracic surgery. Continue colchicine started by cardiology. Pericardial fluid analysis is pending. She is currently hemodynamically stable. Follow cardiothoracic recommendations. Status post thoracentesis bilaterally. Echocardiogram as above. Plans: Follow culture results of the pleural fluid. Pulmonology is following. Hemoglobin is 10.5, normocytic. Plans: We will continue to monitor her hemoglobin and repeat CBC on a daily basis. [Patient diagnosed with PE. Heparin drip will be continued. Mentation improved, Seroquel and Depakote to be started on a lower dose. Continues to be hypotensive and requires 6 L high flow to maintain oxygenation. Fluid analysis from the pericardium and pleura is pending. She is pending clinical improve ment. Prognosis is guarded. Likely DC in 2-3 days.]
[2019-06-12] MEDS: methylPREDNISolone SOD SUCCI 40 MG/ML 1 ML VIAL IV SCH ×2 (13:32→20:55)
[2019-06-12] MEDS: DIVALPROEX 500 MG TABLET.DR PO SCH (13:32)
[2019-06-12] MEDS: COLCHICINE 0.6 MG EACH PO SCH ×2 (13:32→21:24)
[2019-06-12] MEDS: HEPARIN SOD,PORK IN 0.45% NACL 25,000 UNIT in 0.45% NACL 1 250ML.BAG IV SCH (16:17)
[2019-06-12] MEDS: QUEtiapine 100 MG TAB PO SCH (20:55)
[2019-06-13 04:51] LABS: Basophils % (A) 0 %; Eosinophils % (A) 0 %; HCT 36.4 % (34.0-46.0); HGB 11.4 gm/dL (11.4-16.0); Hypochromasia Slight; Lymphocytes # (A) 0.7 k/uL (1.0-4.8); Lymphocytes % (A) 7 %; MCH 30.7 pg (25.0-35.0); MCHC 31.4 g/dL (31.0-37.0); MCV 97.7 fL (80.0-100.0); Mean Platelet Volume 8.7; Monocytes # (A) 0.4 k/uL (0-1.0); Monocytes % (A) 4 %; Neutrophils # (A) 8.7 k/uL (1.3-7.7); Neutrophils % (A) 88 %; Platelet Count 370 k/uL (150-450); RBC 3.73 m/uL (3.80-5.40); RDW 12.7 % (11.5-15.5); WBC 9.9 k/uL (3.8-10.6)
[2019-06-13 05:06] LABS: ALT 24 U/L (4-34); AST 30 U/L (14-36); African American GFR (CKD) >90 (>60 ml/min/1.73 sqM); Albumin 3.1 g/dL (3.5-5.0); Alkaline Phosphatase 108 U/L (38-126); Anion Gap 7 mmol/L; Blood Urea Nitrogen 17 mg/dL (7-17); Calcium 8.8 mg/dL (8.4-10.2); Carbon Dioxide 27 mmol/L (22-30); Chloride 105 mmol/L (98-107); Glucose 122 mg/dL (74-99); Non-African American GFR(CKD) >90 (>60 ml/min/1.73 sqM); Potassium 4.7 mmol/L (3.5-5.1); Sodium 139 mmol/L (137-145); Total Bilirubin 0.3 mg/dL (0.2-1.3)
--- NOTE | 2019-06-13 06:58 | P.PN ---
Subjective Progress Note Date: 06/13/19 Principal diagnosis: Pericardial effusion/pleural effusion This is a very pleasant 58-year-old female patient who was transferred from [facility] for further evaluation off pericardial and pleural effusion. The patient does have past medical history significant for depression but no history of coronary artery disease or congestive heart failure or any cardiac arrhythmia and the patient never seen by a agricultural extension specialist in the past. She is taking medication for depression but the patient does not recall the name of the medication. For the last 3-4 days, she has been experiencing progressive shortness of breath with exertion and for the last day she was experiencing shortness of breath with laying flat in bed. Also yesterday she developed chest discomfort in the mid of the chest as well as. No dizziness or lightheadedness, heart racing or fluttering, or syncope. The patient stated that she gained weight which about 15 pounds started at the last summer till now. No lower extremities edema. Initially she presented to and walking clinic at [facility] and then subsequently she was transferred to the emergency room at [facility] where a computed tomography scan of the chest was performed and revealed large right pleural and pericardial effusion was moderate left pleural effusion. An EKG was performed here and showed sinus rhythm with sinus tachycardia with low-voltage QRS. The patient is not aware of any prior cardiac history as a mentioned earlier. She is unaware of any prior thyroid disorder. She never seen by any physician regarding any autoimmune disease or connective tissue disease disorder. An echocardiogram is in process to be done. Currently the patient is hemodynamically stable and she is not on any vasopressors. She is in process also to be seen by the cardiothoracic surgeon for possible pericardial window. The patient was seen today, 06/13/2019. She has been hemodynamically stable. She has been maintaining normal sinus mechanism. The chest tube still there. Yesterday she was started on heparin IV for PE was seen on the computed tomography scan. She started on heparin IV at this point. The chest x-ray was reviewed and continues to show small bilateral pleural effusion. I am going to obtain a limited echocardiogram to assess for any residual pericardial effusion. We'll follow-up on the pathology of the pericardial/pleural fluid Objective - Vital Signs Vital signs: Vital Signs Temp 98.0 F 06/13/19 00:00 Pulse 74 06/13/19 05:00 Resp 19 06/13/19 05:00 BP 108/58 02/24/20 05:00 Pulse Ox 93 L 06/13/19 05:00 Intake & Output 06/12/19 06/12/19 06/13/19 06:59 18:59 06:59 Intake Total 376.063 263.574 379.488 Output Total 605 1190 1090 Balance -228.937 -926.426 -710.512 Weight 90.3 kg 89.7 kg Intake: IV 0 Sodium Chloride 0.9% 1, 0 000 ml @ 125 mls/hr IV . Q8H NATACHA Rx#:[id number] Intake, IV Titration 136.063 145.574 209.488 Amount Heparin Sod,Pork in 0.45% 86.063 145.574 159.488 NaCl 25,000 unit In 0.45 % NaCl 1 250ml.bag @ 11 UNITS/KG/HR 9.79 mls/hr IV .Q24H NATACHA Rx#: [id number] ceFAZolin 2 gm In Sodium 50 50 Chloride 0.9% 50 ml @ 100 mls/hr IVPB Q8HR NATACHA Rx# :[id number] Oral 240 118 170 Output: Urine 605 1190 1090 Other: Voiding Method Indwelling Catheter Indwelling Catheter Indwelling Catheter ABP, PAP, CO, CI - Last Documented Arterial Blood Pressure 85/64 - Constitutional General appearance: Present: no acute distress - Respiratory Respiratory: bilateral: diminished - Cardiovascular Rhythm: regular Heart sounds: normal: S1, S2 - Labs CBC & Chem 7: 06/13/19 04:11 06/13/19 04:11 Labs: Abnormal Lab Results - Last 24 Hours (Table) 06/12/19 06/13/19 06/13/19 Range/Units 10:28 04:11 04:11 RBC 3.73 L (3.80-5.40) m/uL Neutrophils # 8.7 H (1.3-7.7) k/uL Lymphocytes # 0.7 L (1.0-4.8) k/uL APTT 45.8 H (22.0-30.0) sec Creatinine 0.51 L (0.52-1.04) mg/dL Glucose 122 H (74-99) mg/dL Total Protein 6.0 L (6.3-8.2) g/dL Albumin 3.1 L (3.5-5.0) g/dL 06/13/19 Range/Units 04:11 RBC (3.80-5.40) m/uL Neutrophils # (1.3-7.7) k/uL Lymphocytes # (1.0-4.8) k/uL APTT 43.4 H (22.0-30.0) sec Creatinine (0.52-1.04) mg/dL Glucose (74-99) mg/dL Total Protein (6.3-8.2) g/dL Albumin (3.5-5.0) g/dL Microbiology - Last 24 Hours (Table) 06/10/19 16:15 Anaerobic Culture - Preliminary Pleural Fluid 06/10/19 16:15 Gram Stain - Preliminary Pleural Fluid Body Fluid Culture - Preliminary Assessment and Plan Assessment: Assessment #1 pleurisy with pericardial and pleural effusion #2 large pericardial effusion by computed tomography scan #3 large pleural effusion by computed tomography scan as well #4 history of depression Plan #1 the patient is on heparin IV which was started yesterday for PE. She to be switched to oral anticoagulation down the line #2 continue metoprolol as well as colchicine #3 obtain limited echocardiogram #4 follow-up with the patient
--- NOTE | 2019-06-13 08:38 | XR ---
EXAMINATION TYPE: XR chest 1V portable DATE OF EXAM: 06/13/2019 HISTORY: Shortness of breath. COMPARISON: None. TECHNIQUE: Single view of the chest is submitted. FINDINGS: Demonstrated are scattered senescent parenchymal change. Persistent pleural effusions left greater than right with left lower lobe atelectasis and/or infiltra te. Mediastinal drain is unchanged in position. The heart is stable. Hilar and mediastinal structures are within normal limits. Degenerative changes are seen of the dorsal spine. IMPRESSION: 1. Persistent pleural effusions left greater than right with left lower lobe atelectasis and/or infi ltrate. Mediastinal drain is unchanged in position.
[2019-06-13] MEDS: DIVALPROEX 500 MG TABLET.DR PO SCH (09:00)
[2019-06-13] MEDS: METOPROLOL TARTRATE 25 MG TAB PO SCH ×2 (09:00→21:53)
[2019-06-13] MEDS: methylPREDNISolone SOD SUCCI 40 MG/ML 1 ML VIAL IV SCH ×2 (09:01→21:53)
--- NOTE | 2019-06-13 10:01 | ECHOF ---
Referral Reason:Pericardial effusion MEASUREMENTS -------- HEIGHT: 167.6 cm WEIGHT: 89.4 kg BP: 98/57 IVSd: 1.2 cm (0.6 - 1.1) LVIDd: 3.6 cm (3.9 - 5.3) LVPWd: 1.4 cm (0.6 - 1.1) IVSs: 1.6 cm LVIDs: 2.3 cm LVPWs: 1.5 cm FINDINGS -------- Sinus rhythm. This was a technically adequate study. Limited Study The left ventricular size is normal. There is mild concentric left ventricular hypertrophy. Overa ll left ventricular systolic function is normal with, an EF between 55 - 60 %. There is a small, generalized pericardial effusion present. Large Pleural Effusion. CONCLUSIONS -------- 1. Sinus rhythm. 2. This was a technically adequate study. 3. Limited Study 4. The left ventricular size is normal. 5. There is mild concentric left ventricular hypertrophy. 6. Overall left ventricular systolic function is normal with, an EF between 55 - 60 %. 7. There is a small, generalized pericardial effusion present. 8. Large Pleural Effusion. PLUMBING SERVICE TECHNICIAN: Jessica Spear [facility]
[2019-06-13] MEDS: COLCHICINE 0.6 MG EACH PO SCH ×2 (10:06→21:53)
--- NOTE | 2019-06-13 12:10 | P.PN ---
Subjective Progress Note Date: 06/13/19 Principal diagnosis: Acute hypoxic respiratory failure secondary to bilateral pleural effusions and pericardial effusion On 06/11/2019 on seeing the patient for a follow-up. Note that the patient hasn't a pericardial window and she is postop day #1. The patient also had bilateral thoracentesis. The amount of fluid removed from the right was 1.2 L. Amount of fluid removed from the left was 700 mL. The pleural fluid showed no LVH of 198 and the fluid protein was 2.9 g and this is obviously a transudate type of fluids. No complications of the chest x-ray showed improvement in the lung aeration in the volume status after thoracentesis. Nevertheless, the patient continued to be BiPAP dependent and hypoxemic. Earlier this morning, she was given her valproate and Seroquel which made her even more lethargic. She is arousable and she follows simple commands however she seems to be quite sleepy, tolerating the BiPAP at a pressure of 12/5 cm of water and FiO2 of 70%. Blood. This showing a pH of 7.49 with a pCO2 of 38 and pO2 of 80. Note that the patient was placed on BiPAP immediately postop and she remained on BiPAP throughout the day yesterday and overnight. We did an attempt to put the patient on high flow oxygen at 15 L following the thoracentesis and this lasted several 3 AM this morning and ultimately she end up back on the BiPAP. She is afebrile. The pericardial tube is in place. Output from the tube is in the order of 26 mL throughout the night. No previous history of DVT. Nausea pulmonary embolism. No cough. No sputum production. No chest pain. She is resting comfortably in bed. She seems to be BiPAP dependent. Her blood pressure was around 91/47 and based on that the patient was given to 50 mL of 5% albumin by the cardiothoracic surgical team. The fluid from the pericardium and from the pleural fluid is still pending terms of an unsteady. On today's evaluation of 06/12/2019 and seeing the patient for a follow-up. The patient is postop following pericardial window and the patient is postop day #2. The patient also had bilateral thoracentesis evacuating 1.2 L from the right and 700 mL from the left. Yesterday, the patient was found to be quite lethargic and hypoxic despite being on a BiPAP. Based on that, a CT angiogram was done and the CT angiogram showed small bilateral pleural effusions, atelectatic changes in lung bases and a right upper lobe pulmonary embolism for which the patient was started on IV heparin. CAT scan of the abdomen was negative. During the course of the treatment, the patient improved and currently she is down to 6 L of oxygen by nasal cannula. She is awake and alert and she is following commands and answering questions. She is not having any significant chest pain. Shortness of breath is improved. Pericardial tube is in place and the patient is having minimal output. The patient is currently on colchicine. The load analysis from the pericardial and the pleural fluid is still pending for now. The chest x-ray from today showing some reactivation the right and a left-sided pleural effusion and this can be confirmed on today's examination. She is worried that she is getting progressively more depressed. The patient has been on high dose of Seroquel 600 mg at bedtime and Depakote 1500 mg by mouth daily and both of these medications will be resumed. Note that her difficulty with her commercial lender earlier at 18. No fever. No chills. She is using incentive spirometer and she is pulling approximately 7 50 mL. As mentioned, she has been weaned down to 6 L. The CAT scan of the abdomen showed some significant bladder distention. A Burton catheter was inserted and immediately more than 1 L of urine output was obtained. There is concern that the patient is having some urinary retention. The nursing staff was inserted the Burton catheter to me that there is no evidence of any bladder or vaginal prolapse at this point in time. Other issue is cardiac arrhythmias were the patient was having short runs of atrial fibrillation less than 7 minutes. She converted back to normal sinus rhythm. Amiodarone was not started. The patient remains on IV heparin for now Reevaluated today on 06/13/2019, patient remains in the ICU, she is status post pericardial window postoperative day #3. She also had bilateral thoracentesis, and significant amount of fluid was removed as noted above. The pleural effusion is transudate if in nature. Patient is now on few liters nasal cannula. Feeling much better, breathing a lot easier. Patient is hemodynamically stable, she is in normal sinus rhythm, her CT of the chest showed evidence of pulmonary embolism involving the right upper lobe pulmonary artery. Echocardiogram good LV function. Small generalized pericardial effusion present. Chest x-ray showed moderate left-sided pleural effusion, no plans for thoracentesis at least not today. Patient will likely improve with diuretics. Her previous pleural effusion was noted to be transudate of in nature. Objective - Vital Signs Vital signs: Vital Signs Temp 97.6 F 06/13/19 08:00 Pulse 82 06/13/19 10:00 Resp 16 06/13/19 10:00 BP 112/63 06/13/19 10:00 Pulse Ox 96 06/13/19 10:00 Intake & Output 06/12/19 06/13/19 06/13/19 18:59 06:59 18:59 Intake Total 263.574 379.488 320 Output Total 1190 1140 300 Balance -926.426 -760.512 20 Weight 89.7 kg Intake: IV 0 Sodium Chloride 0.9% 1, 0 000 ml @ 125 mls/hr IV . Q8H NATACHA Rx#:[id number] Intake, IV Titration 145.574 209.488 Amount Heparin Sod,Pork in 0.45% 145.574 159.488 NaCl 25,000 unit In 0.45 % NaCl 1 250ml.bag @ 11 UNITS/KG/HR 9.79 mls/hr IV .Q24H NATACHA Rx#: [id number] ceFAZolin 2 gm In Sodium 50 Chloride 0.9% 50 ml @ 100 mls/hr IVPB Q8HR NATACHA Rx# :[id number] Oral 118 170 200 Tube Feeding 120 Output: Urine 1190 1140 300 Other: Voiding Method Indwelling Catheter Indwelling Catheter Indwelling Catheter ABP, PAP, CO, CI - Last Documented Arterial Blood Pressure 85/64 - Exam Physical Exam: Revealed 58-year-old female pleasant in no distress. On few liters nasal cannula. Head:, Atraumatic normocephalic. HEENT:[Neck is supple.] [No neck masses.] [No thyromegaly.] [No JVD.] Chest: [Diminished breath sounds at the bases especially at the left base, minimal dullness. No crackles or rhonchi or wheezes. Cardiac Exam: [Normal S1 and S2, no S3 gallop, no murmur.] Abdomen: [Soft, nontender, no megaly, no rebound, no guarding, normal bowel sounds.] Extremities: [No clubbing, no edema, no cyanosis.] Neurological Exam: [No focal neurologic deficit.] Alert and oriented 3. Psychiatric: Normal mood, affect and normal mental status examination. Skin: No rashes. Lymphatics: No lymphadenopathy. - Labs CBC & Chem 7: 06/13/19 04:11 06/13/19 04:11 Labs: Abnormal Lab Results - Last 24 Hours (Table) 06/13/19 06/13/19 06/13/19 Range/Units 04:11 04:11 04:11 RBC 3.73 L (3.80-5.40) m/uL Neutrophils # 8.7 H (1.3-7.7) k/uL Lymphocytes # 0.7 L (1.0-4.8) k/uL ESR (0-20) mm/hr APTT 43.4 H (22.0-30.0) sec Creatinine 0.51 L (0.52-1.04) mg/dL Glucose 122 H (74-99) mg/dL C-Reactive Protein (<10.0) mg/L Total Protein 6.0 L (6.3-8.2) g/dL Albumin 3.1 L (3.5-5.0) g/dL 06/13/19 06/13/19 06/13/19 Range/Units 04:11 04:11 10:40 RBC (3.80-5.40) m/uL Neutrophils # (1.3-7.7) k/uL Lymphocytes # (1.0-4.8) k/uL ESR 35 H (0-20) mm/hr APTT 38.6 H (22.0-30.0) sec Creatinine (0.52-1.04) mg/dL Glucose (74-99) mg/dL C-Reactive Protein 42.5 H (<10.0) mg/L Total Protein (6.3-8.2) g/dL Albumin (3.5-5.0) g/dL Microbiology - Last 24 Hours (Table) 06/10/19 16:15 Anaerobic Culture - Preliminary Pleural Fluid 06/10/19 16:15 Gram Stain - Preliminary Pleural Fluid Body Fluid Culture - Preliminary Assessment and Plan Assessment: Impression: Acute hypoxic respiratory failure secondary to bilateral pleural effusions, transudative in nature, and pericardial effusion as well as pulmonary embolism as noted on the CT angiogram of the chest. History of bipolar disorder History of seizure disorder Paroxysmal atrial fibrillation presently in normal sinus rhythm. Acute pulmonary embolism involving right upper lobe as noted on CT angiogram of the chest. Presently on heparin. Recommendation: Continue IV heparin. Continue Solu-Medrol and colchicine. Awaiting final studies on the pericardial and on the pleural effusions. Continue to wean FiO2 as tolerated. Resume her home meds for seizure disorder and bipolar disorder. Awaiting fluid cytology. Connective tissue disease workup is in progress. We'll continue to follow. Possibly transfer out of the ICU to a cardiac floor in the next 24 hours Time with Patient: Less than 30
--- NOTE | 2019-06-13 12:11 | P.PN ---
Subjective Chart was reviewed patient was seen and examined. She does not report any significant problems today. He reports recent URI like symptoms with subsequent worsening of shortness of breath and generalized weakness. Objective - Vital Signs Vital signs: Vital Signs Temp 97.6 F 06/13/19 08:00 Pulse 82 06/13/19 10:00 Resp 16 06/13/19 10:00 BP 112/63 06/13/19 10:00 Pulse Ox 96 06/13/19 10:00 Intake & Output 06/12/19 06/13/19 06/13/19 18:59 06:59 18:59 Intake Total 263.574 379.488 320 Output Total 1190 1140 300 Balance -926.426 -760.512 20 Weight 89.7 kg Intake: IV 0 Sodium Chloride 0.9% 1, 0 000 ml @ 125 mls/hr IV . Q8H NATACHA Rx#:[id number] Intake, IV Titration 145.574 209.488 Amount Heparin Sod,Pork in 0.45% 145.574 159.488 NaCl 25,000 unit In 0.45 % NaCl 1 250ml.bag @ 11 UNITS/KG/HR 9.79 mls/hr IV .Q24H NATACHA Rx#: [id number] ceFAZolin 2 gm In Sodium 50 Chloride 0.9% 50 ml @ 100 mls/hr IVPB Q8HR NATACHA Rx# :[id number] Oral 118 170 200 Tube Feeding 120 Output: Urine 1190 1140 300 Other: Voiding Method Indwelling Catheter Indwelling Catheter Indwelling Catheter ABP, PAP, CO, CI - Last Documented Arterial Blood Pressure 85/64 - Exam Vital Signs: I have reviewed the vital signs. GENERAL: no apparent distress, cooperative Eyes: PERRL, extraoculry movements intact, clear conjunctiva Head: : Atraumatic external nose and ears, oropharyngeal mucosa is moist without lesions or exudates Neck: Symmetric, trachea midline, No thyromegaly, no masses or neck vain pulsation, no neck rigidity CVS: +S1/S2, No murmurs or gallops. Peripheral pulses 2+ and equal in all extremities. RESP: Unlabored respiratory effort. Normal breath sounds with few inspiratory crackles in the bases. Abdomen: Bowel sounds present in all 4 quadrants, Soft to palpation, Nontender/Nondistended, No hepatosplenomegaly, no hernias or masses, no CVA tnderness Musculoskeletal: Extremities w/o deformity, No cyanosis or clubbing, no joint swelling Skin: Warm, Dry. No rashes or lesions Neuro: model photographers' II-XII grossly intact, motor strenght 5/5 i upper and lower extrem ities, no clonus, patellar DTRs 2+ and sympetrical Psych: Awake, Alert, & Oriented (AAO) x3 Appropriate mood and affect - Labs CBC & Chem 7: 06/13/19 04:11 06/13/19 04:11 Labs: Abnormal Lab Results - Last 24 Hours (Table) 06/13/19 06/13/19 06/13/19 Range/Units 04:11 04:11 04:11 RBC 3.73 L (3.80-5.40) m/uL Neutrophils # 8.7 H (1.3-7.7) k/uL Lymphocytes # 0.7 L (1.0-4.8) k/uL ESR (0-20) mm/hr APTT 43.4 H (22.0-30.0) sec Creatinine 0.51 L (0.52-1.04) mg/dL Glucose 122 H (74-99) mg/dL C-Reactive Protein (<10.0) mg/L Total Protein 6.0 L (6.3-8.2) g/dL Albumin 3.1 L (3.5-5.0) g/dL 06/13/19 06/13/19 06/13/19 Range/Units 04:11 04:11 10:40 RBC (3.80-5.40) m/uL Neutrophils # (1.3-7.7) k/uL Lymphocytes # (1.0-4.8) k/uL ESR 35 H (0-20) mm/hr APTT 38.6 H (22.0-30.0) sec Creatinine (0.52-1.04) mg/dL Glucose (74-99) mg/dL C-Reactive Protein 42.5 H (<10.0) mg/L Total Protein (6.3-8.2) g/dL Albumin (3.5-5.0) g/dL Microbiology - Last 24 Hours (Table) 06/10/19 16:15 Anaerobic Culture - Preliminary Pleural Fluid 06/10/19 16:15 Gram Stain - Preliminary Pleural Fluid Body Fluid Culture - Preliminary Assessment and Plan Assessment: Pleural effusions and pericardial effusions of unclear etiology Patient had looks like sort of a viral syndrome preceding this Cultures so far negative. Patient reports repetitively negative TB test We will add CRP/ESR Given low serum albumin, trace protein in the urine, pulmonary embolism and effusions we will check urine protein/creatinine ratio, rule out nephrotic syndrome
[2019-06-13] MEDS: HEPARIN SOD,PORK IN 0.45% NACL 25,000 UNIT in 0.45% NACL 1 250ML.BAG IV SCH (12:37)
--- NOTE | 2019-06-13 17:41 | P.PN ---
Subjective Progress Note Date: 06/13/19 Principal diagnosis: Large pericardial effusion and bilateral pleural effusions. Past medical history of bipolar disorder, depression, history of seizure disorder and suicidal ideation. POD #3 emergent subxiphoid pericardiostomy. POD #3 right and left thoracentesis performed by Dr. Jose The patient is sitting up to the bedside chair in the intensive care unit. She is in no acute distress. She denies any complaints of pain, and continues to report shortness of breath with activity. She is awake, alert and oriented 3, moving all 4 extremities appropriately. Subxiphoid chest tube remains in place to low continuous wall suction -20 cm H2O. No air leak is present. 0 mL of thin serosanguineous drainage in the last 24 hours. Oxygen saturations are 92% on 6 L nasal cannula and she is achieving 500 mL on her incentive spirometry. Bedside telemetry shows normal sinus rhythm heart rate 78. A chest x-ray was completed this morning which shows persistent bilateral pleural effusions, left greater than right. She has been afebrile the last 24 hours and her pericardial fluid cytology remains pending anterior pericardial tissue pathology is back and demonstrates benign mesothelium lined fibroadipose tissue with fibrosis, chronic inflammation, reactive mesothelial hyperplasia, fat necrosis and hemosiderin laden histiocytes. Objective - Vital Signs Vital signs: Vital Signs Temp 97.6 F 06/13/19 08:00 Pulse 81 06/13/19 17:00 Resp 20 06/13/19 17:00 BP 97/57 06/13/19 17:00 Pulse Ox 94 L 06/13/19 16:00 Intake & Output 06/12/19 06/13/19 06/13/19 18:59 06:59 18:59 Intake Total 263.574 379.488 410.512 Output Total 1190 1140 1250 Balance -926.426 -760.512 -839.488 Weight 89.7 kg Intake: IV 0 Sodium Chloride 0.9% 1, 0 000 ml @ 125 mls/hr IV . Q8H NATACHA Rx#:[id number] Intake, IV Titration 145.574 209.488 90.512 Amount Heparin Sod,Pork in 0.45% 145.574 159.488 90.512 NaCl 25,000 unit In 0.45 % NaCl 1 250ml.bag @ 11 UNITS/KG/HR 9.79 mls/hr IV .Q24H NATACHA Rx#: [id number] ceFAZolin 2 gm In Sodium 50 Chloride 0.9% 50 ml @ 100 mls/hr IVPB Q8HR NATACHA Rx# :[id number] Oral 118 170 200 Tube Feeding 120 Output: Urine 1190 1140 1250 Other: Voiding Method Indwelling Catheter Indwelling Catheter Indwelling Catheter ABP, PAP, CO, CI - Last Documented Arterial Blood Pressure 85/64 - Constitutional General appearance: Present: cooperative, no acute distress, obese - Respiratory Details: Lung sounds with few scattered crackles throughout, diminished bilateral bases. Respirations are symmetrical and nonlabored. Oxygen saturation is 92% on 6 L nasal cannula. Achieving 500 mL on her incentive spirometry. Subxiphoid chest tube remains in place to low continuous wall suction -20 cm H2O. No air leak is present. No drainage in the last 24 hours. - Cardiovascular Details: Regular rhythm and rate. S1 and S2 present, negative for S3, gallop or murmur. No edema present. Bedside telemetry showing normal sinus rhythm heart rate 78. Knee-high KRISTEN hose and sequential compression devices in place to bilateral lower extremities. - Gastrointestinal Gastrointestinal Comment(s): Abdomen is soft, nontender and nondistended. Active bowel sounds present in all 4 abdominal quadrants. No guarding or rigidity. Tolerating oral intake. Passing flatus. - Genitourinary Genitourinary Comment(s): Burton catheter for accurate I&O and urinary retention. Draining clear yellow urine. 750 mL output in the last 8 hours. - Integumentary Integumentary Comment(s): Skin is warm and dry. No clubbing or cyanosis is present. Subxiphoid incision with silver dressing intact, clean and dry. - Neurologic Neurologic: Present: CNII-XII intact - Musculoskeletal Musculoskeletal: Present: gait normal, generalized weakness, strength equal bilaterally - Psychiatric Psychiatric: Present: A&O x's 3, appropriate affect, intact judgment & insight - Allied health notes Allied health notes reviewed: nursing - Labs CBC & Chem 7: 06/13/19 04:11 06/13/19 04:11 Labs: Abnormal Lab Results - Last 24 Hours (Table) 06/13/19 06/13/19 06/13/19 Range/Units 04:11 04:11 04:11 RBC 3.73 L (3.80-5.40) m/uL Neutrophils # 8.7 H (1.3-7.7) k/uL Lymphocytes # 0.7 L (1.0-4.8) k/uL ESR (0-20) mm/hr APTT 43.4 H (22.0-30.0) sec Creatinine 0.51 L (0.52-1.04) mg/dL Glucose 122 H (74-99) mg/dL C-Reactive Protein (<10.0) mg/L Total Protein 6.0 L (6.3-8.2) g/dL Albumin 3.1 L (3.5-5.0) g/dL 06/13/19 06/13/19 06/13/19 Range/Units 04:11 04:11 10:40 RBC (3.80-5.40) m/uL Neutrophils # (1.3-7.7) k/uL Lymphocytes # (1.0-4.8) k/uL ESR 35 H (0-20) mm/hr APTT 38.6 H (22.0-30.0) sec Creatinine (0.52-1.04) mg/dL Glucose (74-99) mg/dL C-Reactive Protein 42.5 H (<10.0) mg/L Total Protein (6.3-8.2) g/dL Albumin (3.5-5.0) g/dL Microbiology - Last 24 Hours (Table) 06/10/19 16:15 Anaerobic Culture - Preliminary Pleural Fluid 06/10/19 16:15 Gram Stain - Preliminary Pleural Fluid Body Fluid Culture - Preliminary - Imaging and Cardiology Chest x-ray: report reviewed, image reviewed Assessment and Plan Assessment: 1. Large pericardial effusion, status post pericardial window 2. Bilateral pleural effusions, status post bilateral thoracentesis 3. History of bipolar disorder/depression 4. History of seizure disorder 5. History of suicidal ideation Plan: 1. Discontinue subxiphoid chest tube. 2. Continue to record accurate I&O. 3. Encourage use of her incentive spirometry every hour while awake. 4. Pulmonary management recommendations per Dr. Santoyo. 5. Monitor daily labs and chest x-rays. 6. Pain management per current when necessary orders. 7. Pericardial fluid cytology results remain pending. We will continue to follow the cytology. 8. GI and DVT prophylaxis. 9. May start Eliquis per the cardiothoracic surgery standpoint when okayed by cardiology. Heparin drip management per critical care medicine/cardiology. 10. Medical management other comorbidities per primary care service. 11. More recommendations follow based on patient's clinical course. Time with Patient: Greater than 30
[2019-06-13 18:24] LABS: Protein/Creatinine Ratio,Urine 0.36
[2019-06-13] MEDS: QUEtiapine 100 MG TAB PO SCH (21:52)
[2019-06-14] MEDS: HEPARIN SOD,PORK IN 0.45% NACL 25,000 UNIT in 0.45% NACL 1 250ML.BAG IV SCH (03:49)
[2019-06-14 04:32] LABS: Basophils % (A) 0 %; Eosinophils % (A) 0 %; HCT 37.1 % (34.0-46.0); HGB 11.8 gm/dL (11.4-16.0); Hypochromasia Slight; Lymphocytes # (A) 0.5 k/uL (1.0-4.8); Lymphocytes % (A) 4 %; MCH 31.1 pg (25.0-35.0); MCHC 31.7 g/dL (31.0-37.0); MCV 98.2 fL (80.0-100.0); Monocytes # (A) 0.3 k/uL (0-1.0); Monocytes % (A) 2 %; Neutrophils # (A) 12.4 k/uL (1.3-7.7); Neutrophils % (A) 94 %; Platelet Count 377 k/uL (150-450); RBC 3.78 m/uL (3.80-5.40); RDW 12.8 % (11.5-15.5); WBC 13.3 k/uL (3.8-10.6)
[2019-06-14 04:53] LABS: ALT 43 U/L (4-34); AST 65 U/L (14-36); African American GFR (CKD) >90 (>60 ml/min/1.73 sqM); Albumin 3.1 g/dL (3.5-5.0); Alkaline Phosphatase 124 U/L (38-126); Anion Gap 6 mmol/L; Blood Urea Nitrogen 24 mg/dL (7-17); Calcium 9.2 mg/dL (8.4-10.2); Carbon Dioxide 28 mmol/L (22-30); Chloride 105 mmol/L (98-107); Glucose 144 mg/dL (74-99); Non-African American GFR(CKD) >90 (>60 ml/min/1.73 sqM); Potassium 4.8 mmol/L (3.5-5.1); Sodium 139 mmol/L (137-145); Total Bilirubin 0.2 mg/dL (0.2-1.3)
--- NOTE | 2019-06-14 06:56 | P.PN ---
Subjective Progress Note Date: 06/14/19 Principal diagnosis: Pericardial effusion/pleural effusion This is a very pleasant 58-year-old female patient who was transferred from [facility] for further evaluation off pericardial and pleural effusion. The patient does have past medical history significant for depression but no history of coronary artery disease or congestive heart failure or any cardiac arrhythmia and the patient never seen by a policy change clerks supervisor in the past. She is taking medication for depression but the patient does not recall the name of the medication. For the last 3-4 days, she has been experiencing progressive shortness of breath with exertion and for the last day she was experiencing shortness of breath with laying flat in bed. Also yesterday she developed chest discomfort in the mid of the chest as well as. No dizziness or lightheadedness, heart racing or fluttering, or syncope. The patient stated that she gained weight which about 15 pounds started at the last summer till now. No lower extremities edema. Initially she presented to and walking clinic at [facility] and then subsequently she was transferred to the emergency room at [place] where a computed tomography scan of the chest was performed and revealed large right pleural and pericardial effusion was moderate left pleural effusion. An EKG was performed here and showed sinus rhythm with sinus tachycardia with low-voltage QRS. The patient is not aware of any prior cardiac history as a mentioned earlier. She is unaware of any prior thyroid disorder. She never seen by any physician regarding any autoimmune disease or connective tissue disease disorder. An echocardiogram is in process to be done. Currently the patient is hemodynamically stable and she is not on any vasopressors. She is in process also to be seen by the cardiothoracic surgeon for possible pericardial window. The patient was seen today, June [id number]. She continues to be hemodynamically stable. She remains in normal sinus mechanism. A limited echocardiogram was performed yesterday and showed small generalized pericardial effusion. Chest x-ray was performed today which revealed bilateral pleural e ffusions slightly worse on the right than the left. The patient continues to be on IV heparin for PE. If the patient does not need to go through any procedure like pleurocentesis, I am going to DC the heparin and start the patient on oral anticoagulation. Was still waiting for the results of the pathology on the fluid. Objective - Vital Signs Vital signs: Vital Signs Temp 98.0 F 06/13/19 20:00 Pulse 80 06/14/19 06:00 Resp 18 02/25/20 06:00 BP 98/54 06/14/19 06:00 Pulse Ox 93 L 06/14/19 06:00 Intake & Output 06/13/19 06/13/19 06/14/19 06:59 18:59 06:59 Intake Total 379.488 410.512 350.540 Output Total 1140 1325 1225 Balance -760.512 -914.488 -874.460 Weight 89.7 kg Intake: Intake, IV Titration 209.488 90.512 230.540 Amount Heparin Sod,Pork in 0.45% 159.488 90.512 230.540 NaCl 25,000 unit In 0.45 % NaCl 1 250ml.bag @ 11 UNITS/KG/HR 9.79 mls/hr IV .Q24H NATACHA Rx#: [id number] ceFAZolin 2 gm In Sodium 50 Chloride 0.9% 50 ml @ 100 mls/hr IVPB Q8HR NATACHA Rx# :[id number] Oral 170 200 120 Tube Feeding 120 Output: Urine 1140 1325 1225 Other: Voiding Method Indwelling Catheter Indwelling Catheter Indwelling Catheter # Bowel Movements 1 ABP, PAP, CO, CI - Last Documented Arterial Blood Pressure 85/64 - Constitutional General appearance: Present: no acute distress - Respiratory Respiratory: bilateral: CTA - Cardiovascular Rhythm: regular Heart sounds: normal: S1, S2 - Labs CBC & Chem 7: 06/14/19 04:13 06/14/19 04:13 Labs: Abnormal Lab Results - Last 24 Hours (Table) 06/13/19 06/13/19 06/13/19 Range/Units 04:11 04:11 10:40 WBC (3.8-10.6) k/uL RBC (3.80-5.40) m/uL Neutrophils # (1.3-7.7) k/uL Lymphocytes # (1.0-4.8) k/uL ESR 35 H (0-20) mm/hr APTT 38.6 H (22.0-30.0) sec BUN (7-17) mg/dL Glucose (74-99) mg/dL AST (14-36) U/L ALT (4-34) U/L C-Reactive Protein 42.5 H (<10.0) mg/L Total Protein (6.3-8.2) g/dL Albumin (3.5-5.0) g/dL 06/13/19 06/14/19 06/14/19 Range/Units 19:08 04:13 04:13 WBC 13.3 H (3.8-10.6) k/uL RBC 3.78 L (3.80-5.40) m/uL Neutrophils # 12.4 H (1.3-7.7) k/uL Lymphocytes # 0.5 L (1.0-4.8) k/uL ESR (0-20) mm/hr APTT 65.5 H (22.0-30.0) sec BUN 24 H (7-17) mg/dL Glucose 144 H (74-99) mg/dL AST 65 H (14-36) U/L ALT 43 H (4-34) U/L C-Reactive Protein (<10.0) mg/L Total Protein 6.0 L (6.3-8.2) g/dL Albumin 3.1 L (3.5-5.0) g/dL 06/14/19 Range/Units 04:13 WBC (3.8-10.6) k/uL RBC (3.80-5.40) m/uL Neutrophils # (1.3-7.7) k/uL Lymphocytes # (1.0-4.8) k/uL ESR (0-20) mm/hr APTT 44.7 H (22.0-30.0) sec BUN (7-17) mg/dL Glucose (74-99) mg/dL AST (14-36) U/L ALT (4-34) U/L C-Reactive Protein (<10.0) mg/L Total Protein (6.3-8.2) g/dL Albumin (3.5-5.0) g/dL Assessment and Plan Assessment: Assessment #1 pleurisy with pericardial and pleural effusion #2 large pericardial effusion by computed tomography scan #3 large pleural effusion by computed tomography scan as well #4 history of depression Plan #1 continue the current medical regimen including metoprolol #2 continue heparin IV. Switch the patient to oral anticoagulation if there is no need for any procedure like pleurocentesis #3 continue colchicine as well as Solu Medrol #4 follow-up with the patient
--- NOTE | 2019-06-14 08:08 | XR ---
EXAMINATION TYPE: XR chest 1V portable DATE OF EXAM: 06/14/2019 Comparison: 06/13/2019 Clinical History: 58-year-old female Postoperative pericardial window Findings: Cardiac/pericardiac silhouette is borderline in size. Continued small effusions with bibasilar opacit ies, left greater than right. Impression: Similar small pleural effusions with adjacent, left greater than right atelectasis and/or consolidati on.
[2019-06-14] MEDS: methylPREDNISolone SOD SUCCI 40 MG/ML 1 ML VIAL IV SCH ×2 (09:17→22:04)
[2019-06-14] MEDS: METOPROLOL TARTRATE 25 MG TAB PO SCH ×2 (09:17→22:09)
[2019-06-14] MEDS: DIVALPROEX 500 MG TABLET.DR PO SCH (09:17)
[2019-06-14] MEDS: COLCHICINE 0.6 MG EACH PO SCH ×2 (09:17→22:11)
--- NOTE | 2019-06-14 11:41 | P.PN ---
Subjective Progress Note Date: 06/14/19 Principal diagnosis: Acute hypoxic respiratory failure secondary to bilateral pleural effusions and pericardial effusion On 06/11/2019 on seeing the patient for a follow-up. Note that the patient hasn't a pericardial window and she is postop day #1. The patient also had bilateral thoracentesis. The amount of fluid removed from the right was 1.2 L. Amount of fluid removed from the left was 700 mL. The pleural fluid showed no LVH of 198 and the fluid protein was 2.9 g and this is obviously a transudate type of fluids. No complications of the chest x-ray showed improvement in the lung aeration in the volume status after thoracentesis. Nevertheless, the patient continued to be BiPAP dependent and hypoxemic. Earlier this morning, she was given her valproate and Seroquel which made her even more lethargic. She is arousable and she follows simple commands however she seems to be quite sleepy, tolerating the BiPAP at a pressure of 12/5 cm of water and FiO2 of 70%. Blood. This showing a pH of 7.49 with a pCO2 of 38 and pO2 of 80. Note that the patient was placed on BiPAP immediately postop and she remained on BiPAP throughout the day yesterday and overnight. We did an attempt to put the patient on high flow oxygen at 15 L following the thoracentesis and this lasted several 3 AM this morning and ultimately she end up back on the BiPAP. She is afebrile. The pericardial tube is in place. Output from the tube is in the order of 26 mL throughout the night. No previous history of DVT. Nausea pulmonary embolism. No cough. No sputum production. No chest pain. She is resting comfortably in bed. She seems to be BiPAP dependent. Her blood pressure was around 91/47 and based on that the patient was given to 50 mL of 5% albumin by the cardiothoracic surgical team. The fluid from the pericardium and from the pleural fluid is still pending terms of an unsteady. On today's evaluation of 06/12/2019 and seeing the patient for a follow-up. The patient is postop following pericardial window and the patient is postop day #2. The patient also had bilateral thoracentesis evacuating 1.2 L from the right and 700 mL from the left. Yesterday, the patient was found to be quite lethargic and hypoxic despite being on a BiPAP. Based on that, a CT angiogram was done and the CT angiogram showed small bilateral pleural effusions, atelectatic changes in lung bases and a right upper lobe pulmonary embolism for which the patient was started on IV heparin. CAT scan of the abdomen was negative. During the course of the treatment, the patient improved and currently she is down to 6 L of oxygen by nasal cannula. She is awake and alert and she is following commands and answering questions. She is not having any significant chest pain. Shortness of breath is improved. Pericardial tube is in place and the patient is having minimal output. The patient is currently on colchicine. The load analysis from the pericardial and the pleural fluid is still pending for now. The chest x-ray from today showing some reactivation the right and a left-sided pleural effusion and this can be confirmed on today's examination. She is worried that she is getting progressively more depressed. The patient has been on high dose of Seroquel 600 mg at bedtime and Depakote 1500 mg by mouth daily and both of these medications will be resumed. 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 No fever. No chills. She is using incentive spirometer and she is pulling approximately 7 50 mL. As mentioned, she has been weaned down to 6 L. The CAT scan of the abdomen showed some significant bladder distention. A Burton catheter was inserted and immediately more than 1 L of urine output was obtained. There is concern that the patient is having some urinary retention. The nursing staff was inserted the Burton catheter to me that there is no evidence of any bladder or vaginal prolapse at this point in time. Other issue is cardiac arrhythmias were the patient was having short runs of atrial fibrillation less than 7 minutes. She converted back to normal sinus rhythm. Amiodarone was not started. The patient remains on IV heparin for now Reevaluated today on 06/13/2019, patient remains in the ICU, she is status post pericardial window postoperative day #3. She also had bilateral thoracentesis, and significant amount of fluid was removed as noted above. The pleural effusion is transudate if in nature. Patient is now on few liters nasal cannula. Feeling much better, breathing a lot easier. Patient is hemodynamically stable, she is in normal sinus rhythm, her CT of the chest showed evidence of pulmonary embolism involving the right upper lobe pulmonary artery. Echocardiogram good LV function. Small generalized pericardial effusion present. Chest x-ray showed moderate left-sided pleural effusion, no plans for thoracentesis at least not today. Patient will likely improve with diuretics. Her previous pleural effusion was noted to be transudate of in nature. Reevaluated today on 06/14/19, patient remains in the ICU, she is postoperative day #4. She is status post thoracentesis and pericardial window. Patient is doing well, the final report on the fluid is pending but it is transudative in nature, and it is likely related to congestive heart failure. The cytology is pending. And the cultures are pending but I expect them to be negative. Patient is feeling better breathing easier, remains on heparin for her thromboembolic disease, she had a chest x-ray that showed minimal effusion, no need for thoracentesis at this point. Objective - Vital Signs Vital signs: Vital Signs Temp 98.0 F 06/13/19 20:00 Pulse 73 06/14/19 10:00 Resp 21 06/14/19 10:00 BP 105/62 06/14/19 10:00 Pulse Ox 95 06/14/19 10:00 Intake & Output 06/13/19 06/14/19 06/14/19 18:59 06:59 18:59 Intake Total 410.512 470.540 460 Output Total 1325 1450 250 Balance -914.488 -979.460 210 Weight 89.4 kg Intake: Intake, IV Titration 90.512 230.540 Amount Heparin Sod,Pork in 0.45% 90.512 230.540 NaCl 25,000 unit In 0.45 % NaCl 1 250ml.bag @ 11 UNITS/KG/HR 9.79 mls/hr IV .Q24H [facility] Rx#: [id number] Oral 200 240 460 Tube Feeding 120 Output: Urine 1325 1450 250 Other: Voiding Method Indwelling Catheter Indwelling Catheter # Bowel Movements 1 ABP, PAP, CO, CI - Last Documented Arterial Blood Pressure 85/64 - Exam Physical Exam: Revealed 58-year-old female pleasant in no distress. On 2 L nasal cannula Head:, Atraumatic normocephalic. HEENT:[Neck is supple.] [No neck masses.] [No thyromegaly.] [No JVD.] Chest: [Symmetrical chest expansion, clear bilaterally no crackles or rhonchi or wheezes. Cardiac Exam: [Normal S1 and S2, no S3 gallop, no murmur.] Abdomen: [Soft, nontender, no megaly, no rebound, no guarding, normal bowel sounds.] Extremities: [No clubbing, no edema, no cyanosis.] Neurological Exam: [No focal neurologic deficit.] Alert and oriented 3. Psychiatric: Normal mood, affect and normal mental status examination. Skin: No rashes. Lymphatics: No lymphadenopathy. - Labs CBC & Chem 7: 06/14/19 04:13 06/14/19 04:13 Labs: Abnormal Lab Results - Last 24 Hours (Table) 06/13/19 06/14/19 06/14/19 Range/Units 19:08 04:13 04:13 WBC 13.3 H (3.8-10.6) k/uL RBC 3.78 L (3.80-5.40) m/uL Neutrophils # 12.4 H (1.3-7.7) k/uL Lymphocytes # 0.5 L (1.0-4.8) k/uL APTT 65.5 H (22.0-30.0) sec BUN 24 H (7-17) mg/dL Glucose 144 H (74-99) mg/dL AST 65 H (14-36) U/L ALT 43 H (4-34) U/L Total Protein 6.0 L (6.3-8.2) g/dL Albumin 3.1 L (3.5-5.0) g/dL 06/14/19 Range/Units 04:13 WBC (3.8-10.6) k/uL RBC (3.80-5.40) m/uL Neutrophils # (1.3-7.7) k/uL Lymphocytes # (1.0-4.8) k/uL APTT 44.7 H (22.0-30.0) sec BUN (7-17) mg/dL Glucose (74-99) mg/dL AST (14-36) U/L ALT (4-34) U/L Total Protein (6.3-8.2) g/dL Albumin (3.5-5.0) g/dL Assessment and Plan Assessment: Impression: Acute hypoxic respiratory failure secondary to bilateral pleural effusions, transudative in nature, and pericardial effusion as well as pulmonary embolism as noted on the CT angiogram of the chest. History of bipolar disorder History of seizure disorder Paroxysmal atrial fibrillation presently in normal sinus rhythm. Acute pulmonary embolism involving right upper lobe as noted on CT angiogram of the chest. Presently on heparin. Recommendation: Continue IV heparin. Continue Solu-Medrol and colchicine. Awaiting final studies on the pericardial and on the pleural effusions. Continue to wean FiO2 as tolerated. Resume her home meds for seizure disorder and bipolar disorder. Awaiting fluid cytology. Connective tissue disease workup is negative so far. Transfer patient to a cardiac floor today. And will continue to follow Time with Patient: Less than 30
[2019-06-14] MEDS: APIXABAN 5 MG TAB PO SCH ×2 (12:12→22:04)
--- NOTE | 2019-06-14 13:27 | P.PN ---
Subjective No new events. Serological work up for CTD negative so far. Microbiology negative as well. Clinically pt is doing well. Chest tube has been discontinued and pt cleared for Oral anticoagulants. Objective - Vital Signs Vital signs: Vital Signs Temp 97.6 F 06/14/19 12:00 Pulse 72 06/14/19 12:00 Resp 18 06/14/19 12:00 BP 112/58 06/14/19 12:00 Pulse Ox 94 L 06/14/19 12:00 Intake & Output 06/13/19 06/14/19 06/14/19 18:59 06:59 18:59 Intake Total 410.512 470.540 818.904 Output Total 1325 1450 360 Balance -914.488 -979.460 458.904 Weight 89.4 kg Intake: Intake, IV Titration 90.512 230.540 118.904 Amount Heparin Sod,Pork in 0.45% 90.512 230.540 118.904 NaCl 25,000 unit In 0.45 % NaCl 1 250ml.bag @ 11 UNITS/KG/HR 9.79 mls/hr IV .Q24H [facility] Rx#: [id number] Oral 200 240 700 Tube Feeding 120 Output: Urine 1325 1450 360 Other: Voiding Method Indwelling Catheter Indwelling Catheter Indwelling Catheter # Bowel Movements 1 ABP, PAP, CO, CI - Last Documented Arterial Blood Pressure 85/64 - Exam Vital Signs: I have reviewed the vital signs. GENERAL: no apparent distress, cooperative Eyes: PERRL, extraoculry movements intact, clear conjunctiva Head: : Atraumatic external nose and ears, oropharyngeal mucosa is moist without lesions or exudates Neck: Symmetric, trachea midline, No thyromegaly, no masses or neck vain pulsation, no neck rigidity CVS: +S1/S2, No murmurs or gallops. Peripheral pulses 2+ and equal in all extremities. RESP: Unlabored respiratory effort. Normal breath sounds with few inspiratory crackles in the bases. Abdomen: Bowel sounds present in all 4 quadrants, Soft to palpation, Nontender/Nondistended, No hepatosplenomegaly, no hernias or masses, no CVA tnderness Musculoskeletal: Extremities w/o deformity, No cyanosis or clubbing, no joint swelling Skin: Warm, Dry. No rashes or lesions Neuro: club attendant II-XII grossly intact, motor strenght 5/5 i upper and lower extremiti es, no clonus, patellar DTRs 2+ and sympetrical Psych: Awake, Alert, & Oriented (AAO) x3 Appropriate mood and affect - Labs CBC & Chem 7: 06/14/19 04:13 06/14/19 04:13 Labs: Abnormal Lab Results - Last 24 Hours (Table) 06/13/19 06/14/19 06/14/19 Range/Units 19:08 04:13 04:13 WBC 13.3 H (3.8-10.6) k/uL RBC 3.78 L (3.80-5.40) m/uL Neutrophils # 12.4 H (1.3-7.7) k/uL Lymphocytes # 0.5 L (1.0-4.8) k/uL APTT 65.5 H (22.0-30.0) sec BUN 24 H (7-17) mg/dL Glucose 144 H (74-99) mg/dL AST 65 H (14-36) U/L ALT 43 H (4-34) U/L Total Protein 6.0 L (6.3-8.2) g/dL Albumin 3.1 L (3.5-5.0) g/dL 06/14/19 Range/Units 04:13 WBC (3.8-10.6) k/uL RBC (3.80-5.40) m/uL Neutrophils # (1.3-7.7) k/uL Lymphocytes # (1.0-4.8) k/uL APTT 44.7 H (22.0-30.0) sec BUN (7-17) mg/dL Glucose (74-99) mg/dL AST (14-36) U/L ALT (4-34) U/L Total Protein (6.3-8.2) g/dL Albumin (3.5-5.0) g/dL Assessment and Plan Assessment: #Pleural effusions and pericardial effusions of unclear etiology . pleural effusions transudative in nature recent URI like symptoms may led to pericarditis and pleurisy Patient reports repetitively negative TB test Serologic work up for CTD negtive nor pt has any clinical features of such UPC ration negative for significant proteinuria PTH of the pericardium speciment showed nonspecific inflamatory changes Inflammatory markers elevated, will repeat in few days Mirianlty on Solu MEdrol day #3 and Colchicine day#5 #Pulmonary embolism will be started on oral anticoagulats #acute hypoxic respiratory failure cont to wean off of O2 #Bipola disorder Seroquel dose decreased due to lethargy #seizure disorder Depakote #paroxysmal atrial fibrillation Lopressor Eliquis
--- NOTE | 2019-06-14 14:18 | P.PN ---
Subjective Progress Note Date: 06/14/19 Principal diagnosis: Large pericardial effusion and bilateral pleural effusions. Past medical history of bipolar disorder, depression, history of seizure disorder and suicidal ideation. POD #4 emergent subxiphoid pericardiostomy. POD #4 right and left thoracentesis performed by Dr. Jose The patient is sitting up to the bedside chair in the intensive care unit. She is in no acute distress. Denies any complaints of pain or shortness of breath at this time. Her subxiphoid chest tube was removed yesterday without incident. A limited 2-D echocardiogram was completed yesterday at her bedside which demonstrated an overall left ventricular systolic function to be normal with ejection fraction between 55 and 60% and a small generalized pericardial effusion be present. She remains on a heparin drip per protocol. Her oxygen saturations are 95% on 6 L nasal cannula and she is achieving 750-1000 mL on her incentive spirometry. Her pericardial fluid cytology his back and is showing primarily blood with scattered mixed inflammatory cells, rare mesothelial cells and macrophages and no cytologically malignant cells were then applied. The pericardial tissue pathology is also back and demonstrates benign mesothelia lined fibroadipose tissue with fibrosis, chronic inflammation, reactive mesothelial hyperplasia, fat necrosis and hemosiderin laden histiocytes. Her pleural fluid to cytology remains pending. She remains afebrile and reports that she feels better on a daily basis. She remained hemodynamically stable and is currently on no inotropic or pressor support. Objective - Vital Signs Vital signs: Vital Signs Temp 97.6 F 06/14/19 12:00 Pulse 72 06/14/19 12:00 Resp 18 06/14/19 12:00 BP 112/58 06/14/19 12:00 Pulse Ox 94 L 06/14/19 12:00 Intake & Output 06/13/19 06/14/19 06/14/19 18:59 06:59 18:59 Intake Total 410.512 470.540 818.904 Output Total 1325 1450 360 Balance -914.488 -979.460 458.904 Weight 89.4 kg Intake: Intake, IV Titration 90.512 230.540 118.904 Amount Heparin Sod,Pork in 0.45% 90.512 230.540 118.904 NaCl 25,000 unit In 0.45 % NaCl 1 250ml.bag @ 11 UNITS/KG/HR 9.79 mls/hr IV .Q24H [facility] Rx#: [id number] Oral 200 240 700 Tube Feeding 120 Output: Urine 1325 1450 360 Other: Voiding Method Indwelling Catheter Indwelling Catheter Indwelling Catheter # Bowel Movements 1 ABP, PAP, CO, CI - Last Documented Arterial Blood Pressure 85/64 - Constitutional General appearance: Present: cooperative, no acute distress, obese - Respiratory Details: Lung sounds essentially clear throughout, diminished her bilateral bases with few scattered crackles. Respirations are symmetrical and nonlabored. Oxygen saturation 95% on 6 L nasal cannula. Achieving 750-1000 mL on her incentive spirometry. - Cardiovascular Details: Regular rhythm and rate. S1 and S2 present, negative for S3, gallop or murmur. Bedside telemetry showing normal sinus rhythm heart rate 87. Knee-high sequential compression devices in place to bilateral lower extremities. - Gastrointestinal Gastrointestinal Comment(s): Abdomen is soft, nontender and nondistended. Active bowel sounds present in all 4 abdominal quadrants. No guarding or rigidity. Tolerating oral intake. - Genitourinary Genitourinary Comment(s): Burton catheter for accurate I&O and urinary retention. Draining clear yellow urine. - Integumentary Integumentary Comment(s): Skin is warm and dry. No clubbing or cyanosis is present. No rash or abnormal pigmentation is present. Subxiphoid silver impregnated dressing is clean, dry and intact. No drainage or redness is present. - Neurologic Neurologic: Present: CNII-XII intact - Musculoskeletal Musculoskeletal: Present: gait normal, generalized weakness, strength equal bilaterally - Psychiatric Psychiatric: Present: A&O x's 3, appropriate affect, intact judgment & insight - Allied health notes Allied health notes reviewed: nursing - Labs CBC & Chem 7: 06/14/19 04:13 06/14/19 04:13 Labs: Abnormal Lab Results - Last 24 Hours (Table) 06/13/19 06/14/19 06/14/19 Range/Units 19:08 04:13 04:13 WBC 13.3 H (3.8-10.6) k/uL RBC 3.78 L (3.80-5.40) m/uL Neutrophils # 12.4 H (1.3-7.7) k/uL Lymphocytes # 0.5 L (1.0-4.8) k/uL APTT 65.5 H (22.0-30.0) sec BUN 24 H (7-17) mg/dL Glucose 144 H (74-99) mg/dL AST 65 H (14-36) U/L ALT 43 H (4-34) U/L Total Protein 6.0 L (6.3-8.2) g/dL Albumin 3.1 L (3.5-5.0) g/dL 06/14/ Range/Units 04:13 WBC (3.8-10.6) k/uL RBC (3.80-5.40) m/uL Neutrophils # (1.3-7.7) k/uL Lymphocytes # (1.0-4.8) k/uL APTT 44.7 H (22.0-30.0) sec BUN (7-17) mg/dL Glucose (74-99) mg/dL AST (14-36) U/L ALT (4-34) U/L Total Protein (6.3-8.2) g/dL Albumin (3.5-5.0) g/dL - Imaging and Cardiology Chest x-ray: report reviewed, image reviewed Assessment and Plan Assessment: 1. Large pericardial effusion, status post pericardial window 2. Bilateral pleural effusions, status post bilateral thoracentesis 3. History of bipolar disorder/depression 4. History of seizure disorder 5. History of suicidal ideation Plan: 1. Pericardial tissue pathology and fluid cytology results discussed with the patient. 2. Continue to record accurate I&O. 3. Encourage use of her incentive spirometry every hour while awake. 4. Pulmonary management recommendations per Dr. Santoyo. 5. Monitor daily labs and chest x-rays. 6. Pain management per current when necessary orders. 7. Pleural fluid cytology results remain pending. 8. GI and DVT prophylaxis. 9. May start Eliquis per the cardiothoracic surgery standpoint when okayed by cardiology. Heparin drip management per critical care medicine/cardiology. 10. Medical management other comorbidities per primary care service. 11. Her mammogram results and ultrasound of her breast results were obtained from [facility] by the patient and are currently in her chart. 12. From a cardiothoracic surgery standpoint continue to follow the patient on an as-needed basis. Feel free to contact cardiothoracic surgery for any further questions. Time with Patient: Greater than 30
[2019-06-14] MEDS: QUEtiapine 100 MG TAB PO SCH (22:10)
[2019-06-15 05:47] LABS: Basophils % (A) 0 %; Eosinophils % (A) 0 %; HGB 11.9 gm/dL (11.4-16.0); Hypochromasia Slight; Lymphocytes # (A) 0.6 k/uL (1.0-4.8); Lymphocytes % (A) 4 %; MCH 30.4 pg (25.0-35.0); MCHC 31.3 g/dL (31.0-37.0); MCV 97.3 fL (80.0-100.0); Mean Platelet Volume 8.1; Monocytes # (A) 0.5 k/uL (0-1.0); Monocytes % (A) 3 %; Neutrophils # (A) 12.6 k/uL (1.3-7.7); Neutrophils % (A) 92 %; Platelet Count 442 k/uL (150-450); RDW 12.6 % (11.5-15.5); WBC 13.7 k/uL (3.8-10.6)
[2019-06-15 06:07] LABS: African American GFR (CKD) >90 (>60 ml/min/1.73 sqM); Anion Gap 5 mmol/L; Blood Urea Nitrogen 26 mg/dL (7-17); Calcium 9.4 mg/dL (8.4-10.2); Carbon Dioxide 31 mmol/L (22-30); Chloride 102 mmol/L (98-107); Glucose 115 mg/dL (74-99); Non-African American GFR(CKD) >90 (>60 ml/min/1.73 sqM); Sodium 138 mmol/L (137-145)
--- NOTE | 2019-06-15 07:14 | P.PN ---
Subjective Progress Note Date: 06/15/19 Principal diagnosis: Pericardial effusion/pleural effusion This is a very pleasant 58-year-old female patient who was transferred from [facility] for further evaluation off pericardial and pleural effusion. The patient does have past medical history significant for depression but no history of coronary artery disease or congestive heart failure or any cardiac arrhythmia and the patient never seen by a child welfare consultant in the past. She is taking medication for depression but the patient does not recall the name of the medication. For the last 3-4 days, she has been experiencing progressive shortness of breath with exertion and for the last day she was experiencing shortness of breath with laying flat in bed. Also yesterday she developed chest discomfort in the mid of the chest as well as. No dizziness or lightheadedness, heart racing or fluttering, or syncope. The patient stated that she gained weight which about 15 pounds started at the last summer till now. No lower extremities edema. Initially she presented to and walking clinic at [facility] and then subsequently she was transferred to the emergency room at [place] where a computed tomography scan of the chest was performed and revealed large right pleural and pericardial effusion was moderate left pleural effusion. An EKG was performed here and showed sinus rhythm with sinus tachycardia with low-voltage QRS. The patient is not aware of any prior cardiac history as a mentioned earlier. She is unaware of any prior thyroid disorder. She never seen by any physician regarding any autoimmune disease or connective tissue disease disorder. An echocardiogram is in process to be done. Currently the patient is hemodynamically stable and she is not on any vasopressors. She is in process also to be seen by the cardiothoracic surgeon for possible pericardial window. The patient was seen today, June 152019. Overall she is doing well. She is asymptomatic. She is hemodynamically stable. She has been maintaining normal sinus mechanism. Limited echocardiogram was performed and revealed small pericardial effusion. Yesterday she was started on oral anticoagulation for the PE. Objective - Vital Signs Vital signs: Vital Signs Temp 97.7 F 06/15/19 04:00 Pulse 68 06/15/19 04:00 Resp 15 06/15/19 04:00 BP 119/64 06/15/19 04:00 Pulse Ox 95 06/15/19 04:00 Intake & Output 06/14/19 06/15/19 06/15/19 18:59 06:59 18:59 Intake Total 938.904 Output Total 1060 2201 Balance -121.096 -2201 Weight 87.8 kg Intake: Intake, IV Titration 118.904 Amount Heparin Sod,Pork in 0.45% 118.904 NaCl 25,000 unit In 0.45 % NaCl 1 250ml.bag @ 11 UNITS/KG/HR 9.79 mls/hr IV .Q24H [facility] Rx#: [id number] Oral 820 Output: Urine 1060 2200 Stool 1 Other: Voiding Method Indwelling Catheter ABP, PAP, CO, CI - Last Documented Arterial Blood Pressure 85/64 - Constitutional General appearance: Present: no acute distress - Respiratory Respiratory: bilateral: CTA - Cardiovascular Rhythm: regular Heart sounds: normal: S1, S2 - Labs CBC & Chem 7: 06/15/19 05:26 06/15/19 05:26 Labs: Abnormal Lab Results - Last 24 Hours (Table) 06/15/19 06/15/19 Range/Units 05:26 05:26 WBC 13.7 H (3.8-10.6) k/uL Neutrophils # 12.6 H (1.3-7.7) k/uL Lymphocytes # 0.6 L (1.0-4.8) k/uL Carbon Dioxide 31 H (22-30) mmol/L BUN 26 H (7-17) mg/dL Glucose 115 H (74-99) mg/dL Microbiology - Last 24 Hours (Table) 06/10/19 16:15 Anaerobic Culture - Final Pleural Fluid 06/10/19 16:15 Gram Stain - Final Pleural Fluid Body Fluid Culture - Final Assessment and Plan Assessment: Assessment #1 pleurisy with pericardial and pleural effusion #2 large pericardial effusion by computed tomography scan #3 large pleural effusion by computed tomography scan as well #4 history of depression Plan #1 continue the current medical regimen #2 continue oral anticoagulation #3 continue Solu Medrol #4 continue colchicine #5 the patient can be transferred to the floor from the ICU
[2019-06-15] MEDS: COLCHICINE 0.6 MG EACH PO SCH (08:11)
[2019-06-15] MEDS: methylPREDNISolone SOD SUCCI 40 MG/ML 1 ML VIAL IV SCH ×2 (08:11→21:47)
[2019-06-15] MEDS: METOPROLOL TARTRATE 25 MG TAB PO SCH ×2 (08:11→21:47)
[2019-06-15] MEDS: DIVALPROEX 500 MG TABLET.DR PO SCH (08:11)
[2019-06-15] MEDS: APIXABAN 5 MG TAB PO SCH ×2 (08:11→21:47)
--- NOTE | 2019-06-15 09:40 | P.PN ---
Subjective No new events overnight. Chest tube has been removed. Urinary catheter removed and level of activity increased. Patient reports good appetite no shortness of breath. She Objective - Vital Signs Vital signs: Vital Signs Temp 97.4 F L 06/15/19 08:00 Pulse 82 06/15/19 08:00 Resp 18 06/15/19 08:00 BP 118/67 06/15/19 08:00 Pulse Ox 94 L 06/15/19 08:26 Intake & Output 06/14/19 06/15/19 06/15/19 18:59 06:59 18:59 Intake Total 938.904 Output Total 1060 2201 Balance -121.096 -2201 Weight 87.8 kg Intake: Intake, IV Titration 118.904 Amount Heparin Sod,Pork in 0.45% 118.904 NaCl 25,000 unit In 0.45 % NaCl 1 250ml.bag @ 11 UNITS/KG/HR 9.79 mls/hr IV .Q24H [facility] Rx#: [id number] Oral 820 Output: Urine 1060 2200 Stool 1 Other: Voiding Method Indwelling Catheter Toilet ABP, PAP, CO, CI - Last Documented Arterial Blood Pressure 85/64 - Exam Vital Signs: I have reviewed the vital signs. GENERAL: no apparent distress, cooperative Eyes: PERRL, extraoculry movements intact, clear conjunctiva Head: : Atraumatic external nose and ears, oropharyngeal mucosa is moist without lesions or exudates Neck: Symmetric, trachea midline, No thyromegaly, no masses or neck vain pulsation, no neck rigidity CVS: +S1/S2, No murmurs or gallops. Peripheral pulses 2+ and equal in all extremities. RESP: Unlabored respiratory effort. Normal breath sounds with few inspiratory crackles in the bases. Abdomen: Bowel sounds present in all 4 quadrants, Soft to palpation, Nontender/Nondistended, No hepatosplenomegaly, no hernias or masses, no CVA tnderness Musculoskeletal: Extremities w/o deformity, No cyanosis or clubbing, no joint swelling Skin: Warm, Dry. 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, motor strenght 5/5 i upper and lower extremities, no clonus, patellar DTRs 2+ and sympetrical Psych: Awake, Alert, & Oriented (AAO) x3 Appropriate mood and affect - Labs CBC & Chem 7: 06/15/19 05:26 06/15/19 05:26 Labs: Abnormal Lab Results - Last 24 Hours (Table) 06/15/19 06/15/19 Range/Units 05:26 05:26 WBC 13.7 H (3.8-10.6) k/uL Neutrophils # 12.6 H (1.3-7.7) k/uL Lymphocytes # 0.6 L (1.0-4.8) k/uL Carbon Dioxide 31 H (22-30) mmol/L BUN 26 H (7-17) mg/dL Glucose 115 H (74-99) mg/dL Microbiology - Last 24 Hours (Table) 06/10/19 16:15 Anaerobic Culture - Final Pleural Fluid 06/10/19 16:15 Gram Stain - Final Pleural Fluid Body Fluid Culture - Final Assessment and Plan Assessment: #Pleural effusions and pericardial effusions of unclear etiology . pleural effusions transudative in nature recent URI like symptoms may led to pericarditis/myocarditis and pleurisy Patient reports repetitively negative TB test Serologic work up for CTD negtive nor pt has any clinical features of such UPC ration negative for significant proteinuria PTH of the pericardium speciment showed nonspecific inflamatory changes Inflammatory markers elevated, will repeat in few days Currenlty on Solu MEdrol day #4 and Colchicine day#6 #Pulmonary embolism on oral anticoagulats #acute hypoxic respiratory failure cont to wean off of O2 #Bipola disorder Seroquel dose decreased due to lethargy #seizure disorder Depakote #paroxysmal atrial fibrillation Lopressor Eliquis
--- NOTE | 2019-06-15 10:30 | P.PN ---
Subjective Progress Note Date: 06/15/19 Principal diagnosis: Acute hypoxic respiratory failure secondary to bilateral pleural effusions and pericardial effusion On 06/11/2019 on seeing the patient for a follow-up. Note that the patient hasn't a pericardial window and she is postop day #1. The patient also had bilateral thoracentesis. The amount of fluid removed from the right was 1.2 L. Amount of fluid removed from the left was 700 mL. The pleural fluid showed no LVH of 198 and the fluid protein was 2.9 g and this is obviously a transudate type of fluids. No complications of the chest x-ray showed improvement in the lung aeration in the volume status after thoracentesis. Nevertheless, the patient continued to be BiPAP dependent and hypoxemic. Earlier this morning, she was given her valproate and Seroquel which made her even more lethargic. She is arousable and she follows simple commands however she seems to be quite sleepy, tolerating the BiPAP at a pressure of 12/5 cm of water and FiO2 of 70%. Blood. This showing a pH of 7.49 with a pCO2 of 38 and pO2 of 80. Note that the patient was placed on BiPAP immediately postop and she remained on BiPAP throughout the day yesterday and overnight. We did an attempt to put the patient on high flow oxygen at 15 L following the thoracentesis and this lasted several 3 AM this morning and ultimately she end up back on the BiPAP. She is afebrile. The pericardial tube is in place. Output from the tube is in the order of 26 mL throughout the night. No previous history of DVT. Nausea pulmonary embolism. No cough. No sputum production. No chest pain. She is resting comfortably in bed. She seems to be BiPAP dependent. Her blood pressure was around 91/47 and based on that the patient was given to 50 mL of 5% albumin by the cardiothoracic surgical team. The fluid from the pericardium and from the pleural fluid is still pending terms of an unsteady. On today's evaluation of 06/12/2019 and seeing the patient for a follow-up. The patient is postop following pericardial window and the patient is postop day #2. The patient also had bilateral thoracentesis evacuating 1.2 L from the right and 700 mL from the left. Yesterday, the patient was found to be quite lethargic and hypoxic despite being on a BiPAP. Based on that, a CT angiogram was done and the CT angiogram showed small bilateral pleural effusions, atelectatic changes in lung bases and a right upper lobe pulmonary embolism for which the patient was started on IV heparin. CAT scan of the abdomen was negative. During the course of the treatment, the patient improved and currently she is down to 6 L of oxygen by nasal cannula. She is awake and alert and she is following commands and answering questions. She is not having any significant chest pain. Shortness of breath is improved. Pericardial tube is in place and the patient is having minimal output. The patient is currently on colchicine. The load analysis from the pericardial and the pleural fluid is still pending for now. The chest x-ray from today showing some reactivation the right and a left-sided pleural effusion and this can be confirmed on today's examination. She is worried that she is getting progressively more depressed. The patient has been on high dose of Seroquel 600 mg at bedtime and Depakote 1500 mg by mouth daily and both of these medications will be resumed. 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 No fever. No chills. She is using incentive spirometer and she is pulling approximately 7 50 mL. As mentioned, she has been weaned down to 6 L. The CAT scan of the abdomen showed some significant bladder distention. A Burton catheter was inserted and immediately more than 1 L of urine output was obtained. There is concern that the patient is having some urinary retention. The nursing staff was inserted the Burton catheter to me that there is no evidence of any bladder or vaginal prolapse at this point in time. Other issue is cardiac arrhythmias were the patient was having short runs of atrial fibrillation less than 7 minutes. She converted back to normal sinus rhythm. Amiodarone was not started. The patient remains on IV heparin for now Reevaluated today on 06/13/2019, patient remains in the ICU, she is status post pericardial window postoperative day #3. She also had bilateral thoracentesis, and significant amount of fluid was removed as noted above. The pleural effusion is transudate if in nature. Patient is now on few liters nasal cannula. Feeling much better, breathing a lot easier. Patient is hemodynamically stable, she is in normal sinus rhythm, her CT of the chest showed evidence of pulmonary embolism involving the right upper lobe pulmonary artery. Echocardiogram good LV function. Small generalized pericardial effusion present. Chest x-ray showed moderate left-sided pleural effusion, no plans for thoracentesis at least not today. Patient will likely improve with diuretics. Her previous pleural effusion was noted to be transudate of in nature. Reevaluated today on 06/14/19, patient remains in the ICU, she is postoperative day #4. She is status post thoracentesis and pericardial window. Patient is doing well, the final report on the fluid is pending but it is transudative in nature, and it is likely related to congestive heart failure. The cytology is pending. And the cultures are pending but I expect them to be negative. Patient is feeling better breathing easier, remains on heparin for her thromboembolic disease, she had a chest x-ray that showed minimal effusion, no need for thoracentesis at this point. Reevaluated today on 06/15/19. No significant issues over the last 24 hours. Patient continues to do well, all her lines and tubes have been removed. Patient is on couple of liters of oxygen, her last chest x-ray yesterday showed significant improvement in her bilateral pleural effusions, and cytology of the fluid is pending. The fluid was noted to be transudate of in nature, at least the pleural effusion seems to be an effusion of congestive heart failure. Could very well be related to her pericardial effusion. Workup for connective tissue disease has been negative. Remains on Solu-Medrol and colchicine. Patient is relatively asymptomatic this morning. Objective - Vital Signs Vital signs: Vital Signs Temp 97.4 F L 06/15/19 08:00 Pulse 82 06/15/19 08:00 Resp 18 06/15/19 08:00 BP 118/67 06/15/19 08:00 Pulse Ox 94 L 06/15/19 08:26 Intake & Output 06/14/19 06/15/19 06/15/19 18:59 06:59 18:59 Intake Total 938.904 120 Output Total 1060 2201 Balance -121.096 -2201 120 Weight 87.8 kg Intake: Intake, IV Titration 118.904 Amount Heparin Sod,Pork in 0.45% 118.904 NaCl 25,000 unit In 0.45 % NaCl 1 250ml.bag @ 11 UNITS/KG/HR 9.79 mls/hr IV .Q24H [facility] Rx#: [id number] Oral 820 120 Output: Urine 1060 2200 Stool 1 Other: Voiding Method Indwelling Catheter Toilet ABP, PAP, CO, CI - Last Documented Arterial Blood Pressure 85/64 - Exam Physical Exam: Revealed 58-year-old female pleasant in no distress. On 2 L nasal cannula Head:, Atraumatic normocephalic. HEENT:[Neck is supple.] [No neck masses.] [No thyromegaly.] [No JVD.] Chest: [Symmetrical chest expansion, clear bilaterally no crackles or rhonchi or wheezes. Cardiac Exam: [Normal S1 and S2, no S3 gallop, no murmur.] Abdomen: [Soft, nontender, no megaly, no rebound, no guarding, normal bowel sounds.] Extremities: [No clubbing, no edema, no cyanosis.] Neurological Exam: [No focal neurologic deficit.] Alert and oriented 3. Psychiatric: Normal mood, affect and normal mental status examination. Skin: No rashes. Lymphatics: No lymphadenopathy. - Labs CBC & Chem 7: 06/15/19 05:26 06/15/19 05:26 Labs: Abnormal Lab Results - Last 24 Hours (Table) 06/15/19 06/15/19 Range/Units 05:26 05:26 WBC 13.7 H (3.8-10.6) k/uL Neutrophils # 12.6 H (1.3-7.7) k/uL Lymphocytes # 0.6 L (1.0-4.8) k/uL Carbon Dioxide 31 H (22-30) mmol/L BUN 26 H (7-17) mg/dL Glucose 115 H (74-99) mg/dL Microbiology - Last 24 Hours (Table) 06/10/19 16:15 Anaerobic Culture - Final Pleural Fluid 06/10/19 16:15 Gram Stain - Final Pleural Fluid Body Fluid Culture - Final Assessment and Plan Assessment: Impression: Acute hypoxic respiratory failure secondary to bilateral pleural effusions, transudative in nature, and pericardial effusion as well as pulmonary embolism as noted on the CT angiogram of the chest. History of bipolar disorder History of seizure disorder Paroxysmal atrial fibrillation presently in normal sinus rhythm. Acute pulmonary embolism involving right upper lobe as noted on CT angiogram of the chest. Presently off heparin and she is on Eliquis. Recommendation: Continue Eliquis Continue Solu-Medrol and colchicine. Continue to wean FiO2 as tolerated. Resume her home meds for seizure disorder and bipolar disorder. Awaiting fluid cytology. Connective tissue disease workup is negative so far. Transfer patient to a cardiac floor today. Time with Patient: Less than 30
[2019-06-15] MEDS ORDERED: ACETAMINOPHEN TAB 325 MG TAB PO PRN (14:33)
[2019-06-16] MEDS: QUEtiapine 100 MG TAB PO SCH (01:04)
[2019-06-16] MEDS: COLCHICINE 0.6 MG EACH PO SCH ×2 (01:05→09:07)
[2019-06-16] MEDS: DIVALPROEX 500 MG TABLET.DR PO SCH (09:07)
[2019-06-16] MEDS: APIXABAN 5 MG TAB PO SCH (09:08)
[2019-06-16] MEDS: METOPROLOL TARTRATE 25 MG TAB PO SCH (09:08)
[2019-06-16] MEDS: methylPREDNISolone SOD SUCCI 40 MG/ML 1 ML VIAL IV SCH (09:08)
[2019-06-16 10:25] VITALS: BP 108/68; PULSE 96; RESP 16; TEMP 97.9
[2019-06-16 10:53] VITALS: BMI 30.7
--- NOTE | 2019-06-16 10:55 | P.DS ---
Providers Date of admission: 06/10/19 04:07 Expected date of discharge: 06/16/19 Attending physician: Payam Dugan MD Consults: 06/10/19 04:03 Consult Physician Stat Consulting Provider: Renuka Jose Consult Reason/Comments: pericardial effusion Do you want consulting provider notified?: Already Contacted Consult Physician Urgent Consulting Provider: Arslan Diamond Consult Reason/Comments: pericardial effusion Do you want consulting provider notified?: Already Contacted Consult Physician Urgent Consulting Provider: [facility] Consult Reason/Comments: pericardial effusion Do you want consulting provider notified?: Yes Primary care physician: Physician Nonstaff Hospital Course: Discharge diagnoses Acute hypoxemic respiratory failure Acute diastolic CHF exacerbation Acute pulmonary embolism Bilateral transudative pleural effusions Pericardial effusion Paroxysmal A. fib Seizure disorder Bipolar disorder Hospital course The patient is a 58-year-old that was admitted after being transferred from [place] where she had presented with worsening dyspnea and transferred here for suspected CHF exacerbation with a large pericardial effusion. The patient was placed on BiPAP after failing high flow nasal cannula at 15 L. The patient was seen by cardiothoracic surgery and had a pericardial window. Pulmonary's consulted and the patient had bilateral thoracentesis performed with approximately 1.2 L removed from the left and 700 mL removed from the right, postop chest x-ray ruled out pneumothorax. Post procedure the patient continued to have hypoxemic respiratory failure and subsequent CTA of the chest showed bilateral pleural effusions and small atelectatic changes in the lung base of the right and a right upper lobe pulmonary embolism and the patient was started on IV heparin per protocol. During course of treatment the patient was started on Systemic steroids and colchicine and was eventually weaned down to 6 L and gradually return to room air. Analysis of the pleural fluid indicated transudative etiology, echocardiogram showed EF of 60-65%, normal left atrium, without any significant valvular abnormalities. The patient was continued on diuretics and initiated on metoprolol after having intermittent short runs of A. fib that converted back to normal sinus rhythm. Of note autoimmune rheumatologic workup was negative. The patient was weaned to room air and discharged home in stable condition and instructed to follow up with her PCP cardiology and pulmonology. This discharge process took approximately 35 mi nutes. Focused exam Respiratory: Clear to auscultation bilaterally no wheezes or rhonchi, pulling approximately 1 L on IS Cardiovascular: regular rate and rhythm no murmurs rubs or gallops Patient Condition at Discharge: Good Plan - Discharge Summary Discharge Rx Participant: Yes New Discharge Prescriptions: New Colchicine [Colcrys] 0.6 mg PO BID #60 each Apixaban [Eliquis] 10 mg PO BID #60 tab Metoprolol Tartrate [Lopressor] 25 mg PO BID #60 tab Continue Divalproex [Depakote] 1,500 mg PO HS@2029 QUEtiapine FUMARATE 600 mg PO HS@2029 Discharge Medication List Divalproex [Depakote] 1,500 mg PO HS@202906/10/19 [History] QUEtiapine FUMARATE 600 mg PO HS@202906/10/19 [History] Apixaban [Eliquis] 10 mg PO BID #60 tab 06/16/19 [Rx] Colchicine [Colcrys] 0.6 mg PO BID #60 each 06/16/19 [Rx] Metoprolol Tartrate [Lopressor] 25 mg PO BID #60 tab 06/16/19 [Rx] Follow up Appointment(s)/Referral(s): Nonstaff,Physician [Primary Care Provider] - 1-2 days Melisa Santoyo MD [STAFF PHYSICIAN] - 2 Weeks Ayo Phoenix MD [STAFF PHYSICIAN] - 2 Weeks Discharge Disposition: HOME SELF-CARE
--- NOTE | 2019-06-16 11:43 | P.PN ---
Subjective Progress Note Date: 06/16/19 Principal diagnosis: Acute hypoxic respiratory failure secondary to bilateral pleural effusions and pericardial effusion, and pulmonary embolism 58-year-old white female patient who follows with Kristian Lord PA-C, in [facility], with history of bipolar disorder, depression, remote history of seizures at the age of 9, hepatitis unsure of what type in childhood, nonsmoker, who presented to the [facility] with complaints of shortness of breath and right-sided pleuritic chest pain on 06/09/2019. Patient has no history of coronary artery disease, no history of CHF, cardiac arrhythmia, no chronic lung disease. On presentation patient was also hypoxic, tachycardic and has slightly elevated temperature. Onset of symptoms was 2 weeks ago, patient denies recent illness. Patient was progressively short of breath, especially with any exertion, no lightheadedness or dizziness. She does report increasing swelling in her bilateral lower extremities. Patient also reports some palpitations, mild dry cough. No phlegm production. Denied any fever or chills, denied any nausea vomiting. Chest x-ray was obtained showing bibasilar lung consolidation, bilateral small pleural effusions left greater than right, mild cardiomegaly. Laboratory urinalysis showed white blood cell count of 9.7, hemoglobin of 10.7, first troponin at 0.03, sodium of 138, potassium is 3.6, chloride is 106, CO2 is 23, mild anion gap acidosis with a gap of 13, BUN of 23, creatinine 0.7, lactic acid of 1.8, BNP of 134. EKG showed sinus tachycardia with low voltage QRS. CT angiography of the chest was obtained showing moderate to large right pleural effusion, small to moderate left pleural effusion, large pericardial effusion, bibasilar atelectatic lung consolidation, no evidence of pulmonary embolism. Blood cultures were obtained and sent, patient was given Toradol for pain control, and was transferred to [facility] for cardiothoracic surgery evaluation, and patient has been scheduled for pericardial window this morning. Patient is seen in the intensive care unit, she is currently calm and comfortable, mildly short of breath with exertion, but no acute distress, she is on 6 L of oxygen with a pulse ox of 92%, in sinus mechanism with a rate of 90 BPM, she is afebrile. This morning his blood work has been reviewed showing white blood cell, 9.3, hemoglobin of 10.3, INR 1.2, electrolytes were unremarkable, B1 is 26 creatinine 0.69, troponin is less than 0.012, ALT 69, alk phos was 149. Hemodynamically she is stable, no vasoactive drips, maintenance IV fluids 0.45 at a rate of 125 ML per hour, she has been started on IV Lasix, colchicine, and Kefzol On 06/11/2019 on seeing the patient for a follow-up. Note that the patient hasn't a pericardial window and she is postop day #1. The patient also had bilateral thoracentesis. The amount of fluid removed from the right was 1.2 L. Amount of fluid removed from the left was 700 mL. The pleural fluid showed no LVH of 198 and the fluid protein was 2.9 g and this is obviously a transudate type of fluids. No complications of the chest x-ray showed improvement in the lung aeration in the volume status after thoracentesis. Nevertheless, the patient continued to be BiPAP dependent and hypoxemic. Earlier this morning, she was given her valproate and Seroquel which made her even more lethargic. She is arousable and she follows simple commands however she seems to be quite sleepy, tolerating the BiPAP at a pressure of 12/5 cm of water and FiO2 of 70%. Blood. This showing a pH of 7.49 with a pCO2 of 38 and pO2 of 80. Note that the patient was placed on BiPAP immediately postop and she remained on BiPAP throughout the day yesterday and overnight. We did an attempt to put the patient on high flow oxygen at 15 L following the thoracentesis and this lasted several 3 AM this morning and ultimately she end up back on the BiPAP. She is afebrile. The pericardial tube is in place. Output from the tube is in the order of 26 mL throughout the night. No previous history of DVT. Nausea pulmonary embolism. No cough. No sputum production. No chest pain. She is resting comfortably in bed. She seems to be BiPAP dependent. Her blood pressure was around 91/47 and based on that the patient was given to 50 mL of 5% albumin by the cardiothoracic surgical team. The fluid from the pericardium and from the pleural fluid is still pending terms of an unsteady. On today's evaluation of 06/12/2019 and seeing the patient for a follow-up. The patient is postop following pericardial window and the patient is postop day #2. The patient also had bilateral thoracentesis evacuating 1.2 L from the right and 700 mL from the left. Yesterday, the patient was found to be quite lethargic and hypoxic despite being on a BiPAP. Based on that, a CT angiogram was done and the CT angiogram showed small bilateral pleural effusions, atelectatic changes in lung bases and a right upper lobe pulmonary embolism for which the patient was started on IV heparin. CAT scan of the abdomen was negative. During the course of the treatment, the patient improved and currently she is down to 6 L of oxygen by nasal cannula. She is awake and alert and she is following commands and answering questions. She is not having any significant chest pain. Shortness of breath is improved. Pericardial tube is in place and the patient is having minimal output. The patient is currently on colchicine. The load analysis from the pericardial and the pleural fluid is still pending for now. The chest x-ray from today showing some reactivation the right and a left-sided pleural effusion and this can be confirmed on today's examination. She is worried that she is getting progressively more depressed. The patient has been on high dose of Seroquel 600 mg at bedtime and Depakote 1500 mg by mouth daily and both of these medications will be resumed. 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 No fever. No chills. She is using incentive spirometer and she is pulling approximately 7 50 mL. As mentioned, she has been weaned down to 6 [address]. The CAT scan of the abdomen showed some significant bladder distention. A Burton catheter was inserted and immediately more than 1 L of urine output was obtained. There is concern that the patient is having some urinary retention. The nursing staff was inserted the Burton catheter to me that there is no evidence of any bladder or vaginal prolapse at this point in time. Other issue is cardiac arrhythmias were the patient was having short runs of atrial fibrillation less than 7 minutes. She converted back to normal sinus rhythm. Amiodarone was not started. The patient remains on IV heparin for now Reevaluated today on 06/13/2019, patient remains in the ICU, she is status post pericardial window postoperative day #3. She also had bilateral thoracentesis, and significant amount of fluid was removed as noted above. The pleural effusion is transudate if in nature. Patient is now on few liters nasal cannula. Feeling much better, breathing a lot easier. Patient is hemodynamically stable, she is in normal sinus rhythm, her CT of the chest showed evidence of pulmonary embolism involving the right upper lobe pulmonary artery. Echocardiogram good LV function. Small generalized pericardial effusion present. Chest x-ray showed moderate left-sided pleural effusion, no plans for thoracentesis at least not today. Patient will likely improve with diuretics. Her previous pleural effusion was noted to be transudate of in nature. Reevaluated today on 06/14/19, patient remains in the ICU, she is postoperative day #4. She is status post thoracentesis and pericardial window. Patient is doing well, the final report on the fluid is pending but it is transudative in nature, and it is likely related to congestive heart failure. The cytology is pending. And the cultures are pending but I expect them to be negative. Patient is feeling better breathing easier, remains on heparin for her thromboembolic disease, she had a chest x-ray that showed minimal effusion, no need for thoracentesis at this point. Reevaluated today on 06/15/19. No significant issues over the last 24 hours. Patient continues to do well, all her lines and tubes have been removed. Patient is on couple of liters of oxygen, her last chest x-ray yesterday showed significant improvement in her bilateral pleural effusions, and cytology of the fluid is pending. The fluid was noted to be transudate of in nature, at least the pleural effusion seems to be an effusion of congestive heart failure. Could very well be related to her pericardial effusion. Workup for connective tissue disease has been negative. Remains on Solu-Medrol and colchicine. Patient is relatively asymptomatic this morning. 06/16/2019 patient seen in follow-up on selective care unit, she is awake and alert, doing very well, room air pulse ox is 94%, hemodynamically she is stable, afebrile, she is tolerating ambulation, doing very well, respirations are even and nonlabored. Lung sounds are clear to auscultation, she is working on incentive spirometer, she is able to achieve 1000 and marijuana today, no new chest x-rays, her chest tube has been discontinued on O2 2019. Patient's oxygenation is stable, breathing is comfortable, no complaints of chest pain, no swelling in lower extremities, patient is on oral anticoagulation in the form of Eliquis for pulmonary embolism and the second branch of right pulmonary artery. Next tissue workup has been negative, pleural effusions were found to be transudate if in nature. Clinically patient is doing very well, she is being discharged home today Objective - Vital Signs Vital signs: Vital Signs Temp 97.9 F 06/16/19 08:00 Pulse 96 06/16/19 08:00 Resp 16 06/16/19 08:00 BP 108/68 06/16/19 08:00 Pulse Ox 94 L 06/16/19 08:00 Intake & Output 06/15/19 06/16/19 06/16/19 18:59 06:59 18:59 Intake Total 120 400 480 Output Total 0641 970 9873 Balance -1180 200 -521 Weight 86.4 kg 86.4 kg Intake: Oral 120 400 480 Output: Urine 1632 831 7830 Stool 1 Other: Voiding Method Toilet Toilet # Voids 2 # Bowel Movements 2 ABP, PAP, CO, CI - Last Documented Arterial Blood Pressure 85/64 - Exam GENERAL EXAM: Alert, very pleasant, 58-year-old white female, on room air comfortable in no apparent distress. HEAD: Normocephalic/atraumatic. EYES: Normal reaction of pupils, equal size. Conjunctiva pink, sclera white. NOSE: Clear with pink turbinates. THROAT: No erythema or exudates. NECK: No masses, no JVD, no thyroid enlargement, no adenopathy. CHEST: No chest wall deformity. Symmetrical expansion. Subxifoid chest tube site is clean dry and intact LUNGS: Equal air entry with no crackles, wheeze, rhonchi or dullness. CVS: Regular rate and rhythm, normal S1 and S2, no gallops, no murmurs, no rubs ABDOMEN: Soft, nontender. No hepatosplenomegaly, normal bowel sounds, no guarding or rigidity. EXTREMITIES: No clubbing, no edema, no cyanosis, 2+ pulses and upper and lower extremities. MUSCULOSKELETAL: Muscle strength and tone normal. SPINE: No scoliosis or deformity SKIN: No rashes CENTRAL NERVOUS SYSTEM: Alert and oriented -3. No focal deficits, tone is normal in all 4 extremities. PSYCHIATRIC: Alert and oriented -3. Appropriate affect. Intact judgment and insight. - Labs CBC & Chem 7: 06/15/19 05:26 06/15/19 05:26 Assessment and Plan Plan: Assessment: Acute hypoxic respiratory failure secondary to bilateral pleural effusions, transudative in nature, and pericardial effusion as well as pulmonary embolism as noted on the CT angiogram of the chest. History of bipolar disorder History of seizure disorder Paroxysmal atrial fibrillation presently in normal sinus rhythm. Acute pulmonary embolism involving right upper lobe as noted on CT angiogram of the chest. Presently off heparin and she is on Eliquis. Family history of factor V Leiden in patient's sister Plan: Patient is doing well, she is on room air, she is tolerating ambulation, no complete chest pain or shortness of breath, she is on oral anticoagulation for right lung pulmonary embolism. Vital signs are stable, no acute complaints, no acute events overnight, from pulmonary perspective she stable for discharge home, she will need outpatient follow-up in the office in 7-10 days for repeat chest x-ray, patient is inquiring about hematology workup in regards to her family history of factor 5 Leiden in her sister, this is reasonable and this can be done on outpatient basis, she is going home on Eliquis. I performed a history & physical examination of the patient and discussed their management with my nurse practitioner, Karin Delacruz. I reviewed the nurse practitioner's note and agree with the documented findings and plan of care. Lung sounds are positive for diminished breath sounds in the left lower base with dullness to percussion. The findings and the impression was discussed with the patient. I attest to the documentation by the nurse practitioner. Time with Patient: Less than 30
--- NOTE | 2019-06-16 12:39 | US ---
EXAMINATION TYPE: US venous doppler duplex LE DATE OF EXAM: 06/16/2019 12:25 PM COMPARISON: NONE CLINICAL HISTORY: r/o dvt. Patient state had PE, pleural effusion and cardiac fluid SIDE PERFORMED: Bilateral TECHNIQUE: The lower extremity deep venous system is examined utilizing real time linear array sonog valdemar with graded compression, doppler sonography and color-flow sonography. VESSELS IMAGED: Common Femoral Vein Deep Femoral Vein Greater Saphenous Vein * Femoral Vein Popliteal Vein Small Saphenous Vein * Proximal Calf Veins (* superficial vessels) Right Leg: Negative for DVT Left Leg: Negative for DVT Grayscale, color doppler, spectral doppler imaging performed of the deep veins of the bilateral lower extremities. There is normal flow, compressibility, vascular waveforms. IMPRESSION: No ultrasound evidence for acute DVT in either lower extremity.
--- NOTE | 2019-06-16 14:20 | P.PN ---
Subjective Progress Note Date: 06/16/19 This is a pleasant 58-year-old female with history of bipolar disorder, depression, remote history of seizures at the age of 9, hepatitis in the past, nonsmoker, who initially presented to [facility] with symptoms of shortness of breath and right-sided pleuritic chest pain. This is day 6 in the hospital for her. She originally was admitted to the intensive care unit, patient was found to have pleural effusion, pericardial effusion status post pericardial window, patient also had bilateral thoracentesis performed, it was also noted on her CAT scan that the patient had a pulmonary embolism. Patient was initiated on anticoagulation in the form of Eliquis. We did a venous duplex study today that came back negative for DVT. The patient does state incidentally that her sister had factor V Leiden deficiency. We will recommend on discharge home today that the patient have a follow-up appointment with hematology. Blood pressure 108/60 with a heart rate of 80s to 90s. 94% on room air. Objective - Vital Signs Vital signs: Vital Signs Temp 97.9 F 06/16/19 08:00 Pulse 96 06/16/19 12:00 Resp 16 06/16/19 12:00 BP 108/68 06/16/19 08:00 Pulse Ox 94 L 06/16/19 08:00 Intake & Output 06/15/19 06/16/19 06/16/19 18:59 06:59 18:59 Intake Total 120 400 480 Output Total 7844 399 1197 Balance -1180 200 -522 Weight 86.4 kg 86.4 kg Intake: Oral 120 400 480 Output: Urine 4201 781 6995 Stool 2 Other: Voiding Method Toilet Toilet # Voids 2 # Bowel Movements 2 ABP, PAP, CO, CI - Last Documented Arterial Blood Pressure 85/64 - Exam HEAD: Normocephalic/atraumatic. EYES: Normal reaction of pupils, equal size. Conjunctiva pink, sclera white. NOSE: Clear with pink turbinates. THROAT: No erythema or exudates. NECK: No masses, no JVD, no thyroid enlargement, no adenopathy. CHEST: No chest wall deformity. Symmetrical expansion. Subxifoid chest tube site is clean dry and intact LUNGS: Equal air entry with no crackles, wheeze, rhonchi or dullness. CVS: Regular rate and rhythm, normal S1 and S2, no gallops, no murmurs, no rubs ABDOMEN: Soft, nontender. No hepatosplenomegaly, normal bowel sounds, no guarding or rigidity. EXTREMITIES: No clubbing, no edema, no cyanosis, 2+ pulses and upper and lower extremities. MUSCULOSKELETAL: Muscle strength and tone normal. SPINE: No scoliosis or deformity SKIN: No rashes CENTRAL NERVOUS SYSTEM: Alert and oriented -3. No focal deficits, tone is normal in all 4 extremities. PSYCHIATRIC: Alert and oriented -3. Appropriate affect. Intact judgment and insight. - Labs CBC & Chem 7: 06/15/19 05:26 06/15/19 05:26 Assessment and Plan Plan: Assessment and plan #1 Acute hypoxic respiratory failure secondary to bilateral pleural effusions, transudative in nature, status post thoracentesis and pericardial effusion status post pericardial window as well as pulmonary embolism as noted on the CT angiogram of the chest. #2 History of bipolar disorder #3 History of seizure disorder #4 Paroxysmal atrial fibrillation presently in normal sinus rhythm. #5 Acute pulmonary embolism involving right upper lobe as noted on CT angiogram of the chest. On Eliquis per PE protocol #Family history of factor V Leiden in patient's sister Plan From cardiology's perspective, patient may be able to be discharged home today, we would recommend that she have a follow-up appointment with hematology for a full workup as an outpatient. We will make her a follow-up appointment in the office with Dr. Cheney in [place] post discharge. DNP note has been reviewed, I agree with a documented findings and plan of care. Patient was seen and examined.
== END 2019-06-16 14:58 | disposition home or self-care (01) | DRG 270 ==
LOC: EC 02:08 → 2SICU 04:07 → 3SCARD 06-15 22:34
PROVIDERS: ADMIT Family Medicine; ATTEND Family Medicine
PROC: 0W9930Z Drainage of Right Pleural Cavity with Drainage Device, Percutaneous Approach (ICD-10-PCS; 2019-06-10)
PROC: 0W9B30Z Drainage of Left Pleural Cavity with Drainage Device, Percutaneous Approach (ICD-10-PCS; 2019-06-10)
PROC: 0W9D00Z Drainage of Pericardial Cavity with Drainage Device, Open Approach (ICD-10-PCS; principal; 2019-06-10 09:45)
PROC: 02BN0ZZ Excision of Pericardium, Open Approach (ICD-10-PCS; principal; 2019-06-10 09:45)
DX: I31.3 Pericardial effusion (noninflammatory) (principal); G93.41 Metabolic encephalopathy; I26.99 Other pulmonary embolism without acute cor pulmonale; I50.33 Acute on chronic diastolic (congestive) heart failure; J96.01 Acute respiratory failure with hypoxia; E87.2 Acidosis; J90 Pleural effusion, not elsewhere classified; J98.11 Atelectasis; I95.9 Hypotension, unspecified; D64.9 Anemia, unspecified; F32.9 Major depressive disorder, single episode, unspecified; G40.909 Epilepsy, unspecified, not intractable, without status epilepticus; I48.0 Paroxysmal atrial fibrillation; R32 Unspecified urinary incontinence; R14.0 Abdominal distension (gaseous); R74.0 Nonspecific elevation of levels of transaminase and lactic acid dehydrogenase [LDH]; E86.0 Dehydration; F41.9 Anxiety disorder, unspecified; R33.9 Retention of urine, unspecified; E66.9 Obesity, unspecified; Z68.30 Body mass index [BMI] 30.0-30.9, adult; Z79.01 Long term (current) use of anticoagulants; Z79.899 Other long term (current) drug therapy; Z82.49 Family history of ischemic heart disease and other diseases of the circulatory system; Z83.2 Family history of diseases of the blood and blood-forming organs and certain disorders involving the immune mechanism; Z83.3 Family history of diabetes mellitus; Z82.0 Family history of epilepsy and other diseases of the nervous system
CPT/HCPCS: 36415; 36600; 71045; 71275; 74177; 80048; 80053; 80164; 81003; 82150; 82570; 82805; 82945; 83615; 83735; 84132; 84156; 84157; 84311; 84443; 84484; 85025; 85610; 85652; 85730; 86038; 86140; 86431; 86850; 86900; 86901; 87070; 87075; 87102; 87116; 87205; 87206; 87252; 87496; 87498; 87502; 87529; 87634; 87798; 88108; 88305; 88341; 88342; 89050; 93005; 93306; 93308; 93970; 94660; 96374; 99291

== ENCOUNTER 2019-06-17 18:14 | Inpatient (IN) | payer BC ==
[2019-06-17 18:37] LABS: Glucose,Whole Blood 90 mg/dL (75-99)
--- NOTE | 2019-06-17 19:08 | ED ---
General Adult HPI - General Chief complaint: Dizziness Stated complaint: neuro deficit Time Seen by Provider: 06/17/19 18:19 Source: patient Mode of arrival: EMS Limitations: no limitations - History of Present Illness Initial comments: Dictation was produced using [employer] dictation software. please excuse any grammatical, word or spelling errors. Chief Complaint: 58-year-old female brought to the emergency department from [place] for dehydration and hypotension. History of Present Illness: Patient is 58-year-old female she was transferred from [place] emergency department for dehydration and hypotension. Patient initially presented to [facility] emergency department for chief complaint of weakness. Patient states she has not had a very good appetite over the last couple days. Patient was recently discharged from our hospital couple days ago. She had a very interesting a hospital stay. She was diagnosed with pulmonary embolus, pleural effusions pericardial effusion. She required a pericardial window and thoracentesis. She was just discharged yesterday back to home. Patient measured her blood pressure home with systolics measuring the 70s. She presented to the [facility] were she was evaluated. Patient responded to intravenous fluids. Patient takes multiple medications. She is on medications. She is on Seroquel, valproic acid, eliquis, colchicine, metoprolol. Patient states she feels a lot better since being transferred. She states she feels generally weak. The ROS documented in this emergency department record has been reviewed and confirmed by me. Those systems with pertinent positive or negative responses have been documented in the HPI. All other systems are other negative and/or noncontributory. PHYSICAL EXAM: General Impression: Alert and oriented x3, not in acute distress HEENT: Normocephalic atraumatic, extra-ocular movements intact, pupils equal and reactive to light bilaterally, mucous membranes moist. Cardiovascular: Heart regular rate and rhythm, S1&S2 audible, no murmurs, rubs or gallops Chest: Lungs clear to auscultation bilaterally, no rhonchi, no wheeze, no rales Abdomen: Bowel sounds present, abdomen soft, non-tender, non-distended, no organomegaly Musculoskeletal: Pulses present and equal in all extremities, no peripheral edema Motor: no focal deficits noted Neurological: CN II-XII grossly intact, no focal motor or sensory deficits noted Skin: Surgical scars to the chest and abdomen are clean dry and intact Psych: Normal affect and mood ED course: 58-year-old female transferred for borderline hypotension and generalized weakness. Vital signs upon arrival shows blood pressure 9 and 52, so vital signs within except limits. Chest her documentation was reviewed. Patient's labs from [place] were reviewed. White blood cell count of 10.4, hemoglobin 11.9. Platelets of 426. Metabolic panel shows glucose of 82, creatinine of 0.8, BUN of 29. Electrolytes are within acceptable limits. Patient had x-ray that showed small effusion showed a negative CT of the brain Discharge summary was reviewed. Patient got a pericardial window, she had bilateral thoracentesis with approximately 2 L total removed. After the surgery she developed PE. Patient is stable at bedside. Her vital signs are stable. Patient started on maintenance IV fluids. Discussed patient case with Dr. Ocampo who is willing to accept patients care. EKG interpretation: Ventricular rate 74, normal sinus rhythm, TX interval 150, QRS 80, QTc 446. No TX prolongation, no QTC prolongation, no ST or T-wave changes noted. . Overall, this EKG is unremarkable - Related Data Home Medications Medication Instructions Recorded Confirmed Divalproex [Depakote] 1,500 mg PO HS@202906/10/19 06/10/19 QUEtiapine FUMARATE 600 mg PO HS@202906/10/19 06/10/19 Previous Rx's Medication Instructions Recorded Apixaban [Eliquis] 10 mg PO BID #60 tab 06/16/19 Colchicine [Colcrys] 0.6 mg PO BID #60 each 06/16/19 Metoprolol Tartrate [Lopressor] 25 mg PO BID #60 tab 06/16/19 Allergies Allergy/AdvReac Type Severity Reaction Status Date / Time No Known Allergies Allergy Verified 06/17/19 18:23 Review of Systems ROS Statement: Those systems with pertinent positive or pertinent negative responses have been documented in the HPI. ROS Other: All systems not noted in ROS Statement are negative. Past Medical History Past Medical History: Seizure Disorder Additional Past Medical History / Comment(s): Remote history of seizures at the age of 9, was treated with phenobarbital for one year, with no subsequent recurrence of seizures History of Any Multi-Drug Resistant Organisms: None Reported Past Surgical History: Section, Tonsillectomy Additional Past Surgical History / Comment(s): Adnoidectomy Past Anesthesia/Blood Transfusion Reactions: No Reported Reaction Past Psychological History: Bipolar, Depression Smoking Status: Never smoker Past Alcohol Use History: Occasional Past Drug Use History: None Reported - Past Family History Mother Family Medical History: Dementia Father Family Medical History: Diabetes Mellitus, Myocardial Infarction ([place]) ( at age 70 due to a myocardial infarction) General Exam Limitations: no limitations Course Vital Signs 06/17/19 06/17/19 18:19 19:30 Temperature 98.7 F Pulse Rate 74 70 Respiratory 18 18 Rate Blood Pressure 99/52 103/54 O2 Sat by Pulse 96 96 Oximetry Medical Decision Making - Lab Data Lab Results 06/17/19 06/17/19 Range/Units 18:35 18:51 POC Glucose (mg/dL) 90 (75-99) mg/dL POC Glu [employer] Electrical Person ID Satnam Nicholas Troponin I <0.012 (0.000-0.034) ng/mL Disposition Clinical Impression: Dehydration Disposition: ADMITTED IP TO [facility] Condition: Fair Referrals: Kristian Lord NPC [REFERRING] - 1-2 days Decision Time: 19:55
[2019-06-17] MEDS ORDERED: ACETAMINOPHEN TAB 325 MG TAB PO PRN (19:52)
[2019-06-17] MEDS ORDERED: NALOXONE 0.4 MG/ML 1 ML VIAL IV PRN (19:52)
[2019-06-17] MEDS ORDERED: ONDANSETRON 4 MG/2 ML VIAL IVP PRN (19:52)
[2019-06-17] MEDS: SODIUM CHLORIDE 0.9% 1,000 ML IV SCH (20:10)
[2019-06-17] MEDS: APIXABAN 5 MG TAB PO SCH (21:10)
[2019-06-17] MEDS: DIVALPROEX 500 MG TABLET.DR PO SCH (21:10)
[2019-06-17] MEDS: COLCHICINE 0.6 MG EACH PO SCH (21:10)
[2019-06-17] MEDS: METOPROLOL TARTRATE 25 MG TAB PO SCH (21:38)
--- NOTE | 2019-06-17 21:47 | P.HPIM ---
History of Present Illness H&P Date: 06/17/19 Chief Complaint: hypotension 58 year old female recently diangosed with acute PE, and diastolic CHF resulting in bilateral pleural effusion and pericardial effusion s/p pericardial window , discharged one day ago recent Echo showing LVEF 60-65% patient comes in today, after being transferred from [facility] due to hypotension . patient reports that she woke up today feeling dizzy and tired ,. she also reports suspected slurred speech ,. her daughter grew concerned as patient was hypotensive. for which she was taken to [facility]. she denies any associated trouble breathing, leg swelling , chest pain , fever, chills, headache, or any other focal neurodeficits. her blood pressure was confirmed to be low at [facility] for which she was trasferred to our facility and was given fluids. when she arrived here she was found to have systolic blood pressure >100. patient asymptomatic at this time. her labs unremarkable. it was thought to be a component of dehydration . patient admitted for close monitoring overnight Review of Systems Pertinent positives as noted in HPI. All other systems were reviewed and are negative Past Medical History Past Medical History: Seizure Disorder Additional Past Medical History / Comment(s): Remote history of seizures at the age of 9, was treated with phenobarbital for one year, with no subsequent recurrence of seizures. Pericardial effusion with pericardial window History of Any Multi-Drug Resistant Organisms: None Reported Past Surgical History: Section, Tonsillectomy Additional Past Surgical History / Comment(s): Adnoidectomy Past Anesthesia/Blood Transfusion Reactions: No Reported Reaction Past Psychological History: Bipolar, Depression Smoking Status: Never smoker Past Alcohol Use History: Occasional Past Drug Use History: None Reported - Past Family History Mother Family Medical History: Dementia Father Family Medical History: Diabetes Mellitus, Myocardial Infarction ([place]) Medications and Allergies Home Medications Medication Instructions Recorded Confirmed Type Divalproex [Depakote] 1,500 mg PO HS@202906/10/19 06/17/19 History QUEtiapine FUMARATE 600 mg PO HS@202906/10/19 06/17/19 History Apixaban [Eliquis] 10 mg PO BID #60 tab 06/16/19 06/17/19 Rx Colchicine [Colcrys] 0.6 mg PO BID #60 each 06/16/19 06/17/19 Rx Metoprolol Tartrate [Lopressor] 25 mg PO BID #60 tab 06/16/19 06/17/19 Rx Allergies Allergy/AdvReac Type Severity Reaction Status Date / Time No Known Allergies Allergy Verified 06/17/19 20:26 Physical Exam Vitals: Vital Signs Temp Pulse Resp BP Pulse Ox 06/17/19 19:30 70 18 103/54 96 06/17/19 18:19 98.7 F 74 18 99/52 96 Intake and Output 06/17/19 06/17/19 06/17/19 06:59 14:59 22:59 Other: Weight 85.275 kg Constitutional: No acute distress, conversant, pleasant Eyes: Anicteric sclerae, moist conjunctiva, no lid-lag Pupils equal round reactive to light ENMT: NC/AT Oropharynx clear, no erythema, exudates Neck: Supple, FROM, no masses, or JVD No carotid bruits No thyromegaly Lungs: Clear to auscultation Clear to percussion Normal respiratory effort, no accessory muscle use Cardiovascular: Heart regular in rate and rhythm, No murmurs, gallops, or rubs No peripheral edema Abdominal: Soft Nontender, no guarding, rebound or rigidity Abdomen moving with respiration Normoactive bowel sounds No hepatomegaly, No splenomegaly No palpable mass No abdominal wall hernia noted Skin: Normal temperature, tone, texture, turgor No induration No subcutaneous nodules No rash, lesions No ulcers Extremities: No digital cyanosis No clubbing Pedal pulses intact and symmetrical Radial pulses intact and symmetrical No calf tenderness Psychiatric: Alert and oriented to person, place and time Appropriate affect fair judgement Neuro Muscles Strength 5/5 in all 4 extremities Sensation to light touch grossly present throughout Cranial nerves II-XII grossly intact No focal sensory deficits Lymphatics: no palpable cervical or supraclavicular , or inguinal lymph nodes Thrombosis Risk Factor Assmnt - Choose All That Apply Each Factor Represents 1 point: Age 41-60 years, History of prior major surgery (<1month) Thrombosis Risk Factor Assessment Total Risk Factor Score: 2 Thrombosis Risk Factor Assessment Level: Low Risk Assessment and Plan Assessment: 58 year old female recently diangosed with acute PE, and diastolic CHF resulting in bilateral pleural effusion and pericardial effusion s/p pericardial window discharged 1 day ago, and returns due to hypotension admitted under observation with anticipated length of stay <2 midnights Plan: symptomatic hypotension hold parameters Metoprolol hold for systolic blood pressure <100 gentle IVF hydration close monitoring of vital signs chronic conditions diastolic CHF , compensated recent diagnosis with acute PE, continue eliquis 10 mg bid for total of 1 week, then 5 mg bid Remote history of childhood seizure bipolar disorder continue home meds DVT PPX on eliquis for acute thromboembolism labs and electrolytes , unremarkable Preformed a thorough record review from recent hospitalization diagnosed with pericardial effusion s/p pericardial window , acute PE on eliquis CODE STATUS:full code Discussed with: Patient, ER, RN Anticipated length of stay < than [address]: home A total of 60 minutes was spent on the care of this complex patient more than 50% of the time was spent in counseling and care coordination.
[2019-06-18] MEDS: SODIUM CHLORIDE 0.9% 1,000 ML IV SCH (05:53)
[2019-06-18] MEDS: PANTOPRAZOLE 40 MG TABLET PO SCH (05:53)
[2019-06-18 06:33] LABS: Basophils % (A) 1 %; Eosinophils # (A) 0.2 k/uL (0-0.7); Eosinophils % (A) 3 %; HCT 38.8 % (34.0-46.0); HGB 12.4 gm/dL (11.4-16.0); Lymphocytes # (A) 1.8 k/uL (1.0-4.8); Lymphocytes % (A) 22 %; MCH 30.9 pg (25.0-35.0); MCHC 31.9 g/dL (31.0-37.0); MCV 96.8 fL (80.0-100.0); Mean Platelet Volume 7.7; Monocytes # (A) 0.6 k/uL (0-1.0); Monocytes % (A) 8 %; Neutrophils # (A) 5.5 k/uL (1.3-7.7); Neutrophils % (A) 66 %; Platelet Count 427 k/uL (150-450); RBC 4.01 m/uL (3.80-5.40); RDW 12.9 % (11.5-15.5); WBC 8.4 k/uL (3.8-10.6)
[2019-06-18 06:46] LABS: African American GFR (CKD) >90 (>60 ml/min/1.73 sqM); Anion Gap 4 mmol/L; Blood Urea Nitrogen 23 mg/dL (7-17); Calcium 8.7 mg/dL (8.4-10.2); Carbon Dioxide 31 mmol/L (22-30); Chloride 102 mmol/L (98-107); Glucose 78 mg/dL (74-99); Non-African American GFR(CKD) 90 (>60 ml/min/1.73 sqM); Potassium 4.9 mmol/L (3.5-5.1); Sodium 137 mmol/L (137-145)
[2019-06-18] MEDS: COLCHICINE 0.6 MG EACH PO SCH ×2 (08:28→19:48)
[2019-06-18] MEDS: APIXABAN 5 MG TAB PO SCH ×2 (08:28→19:48)
[2019-06-18] MEDS: METOPROLOL TARTRATE 25 MG TAB PO SCH ×2 (08:29→19:48)
--- NOTE | 2019-06-18 09:13 | P.PN ---
Subjective Progress Note Date: 06/18/19 Principal diagnosis: Dizziness Patient was seen and examined. No acute events overnight. Patient reports waking up around 9 in the morning and took her morning medications including metoprolol. Patient reports soon after feeling lightheaded with slurred speech. Symptoms persisted until afternoon which prompted the patient to go to the ED. She was able to take her blood pressure which was 79 over something. She currently denies any chest pain, shortness of breath or palpitations. No nausea or vomiting. No fever or chills. No further dizziness. Objective - Vital Signs Vital signs: Vital Signs Temp 98 F 06/18/19 00:00 Pulse 89 06/18/19 08:00 Resp 16 06/18/19 08:00 BP 109/54 06/18/19 08:00 Pulse Ox 95 06/18/19 08:00 Intake & Output 06/17/19 06/18/19 06/18/19 18:59 06:59 18:59 Weight 85.275 kg 86.2 kg Other: Voiding Method Toilet # Voids 1 - Exam General: [non toxic], [no distress], [appears at stated age] Derm: [warm], [dry] Head: [atraumatic], [normocephalic], [symmetric] Eyes: [EOMI], [no lid lag], [anicteric sclera] Mouth: [no lip lesion], [mucus membranes moist] Cardiovascular: [S1S2 reg], [no murmur], [positive posterior tibial pulse bilateral], Lungs: [CTA bilateral], [no rhonchi, no rales] , [no accessory muscle use] Abdominal: [soft], [ nontender to palpation], [no guarding], [no appreciable organomegaly] Ext: [no gross muscle atrophy], [no edema], [no contractures] Neuro: [no focal neuro deficits] Psych: [Alert], [oriented], [appropriate affect] - Labs CBC & Chem 7: 06/18/19 05:41 06/18/19 05:41 Labs: Abnormal Lab Results - Last 24 Hours (Table) 06/18/19 Range/Units 05:41 Carbon Dioxide 31 H (22-30) mmol/L BUN 23 H (7-17) mg/dL Assessment and Plan Assessment: Lightheadedness related to hypotension History of pericardial effusion Pulmonary embolus Remote history of childhood seizure Bipolar disorder Diastolic CHF compensated Her orthostats are negative. She does have elevated BUN of 23 which is actually decreased from previous admission. Her metoprolol will be restarted and her vital signs will be monitored closely. She will be started on normal saline at 120 mL/h for dehydration. Metoprolol will be held if SBP is less than 100. Cardiology will be consulted. I will repeat echocardiogram given her recent history of pericardial effusion post pericardial window. She will be continued on Eliquis for her recent diagnosis of PE. Depakote will be restarted for history of seizures and bipolar disorder. Patient is pending clinical improvement. Likely DC in 1-2 days.
--- NOTE | 2019-06-18 10:43 | P.CRDCN ---
History of Present Illness Consult date: 06/18/19 Consult reason: hypotension History of present illness: The patient is a 58-year-old female with past medical history of bipolar disorder and depression, who was transferred back to [facility] from [place] for hypotension. She was recently admitted for pulmonary emboli, large pleural effusions, and pericardial effusion which was drained via pericardial window. She was discharged on 06/16/2019 but was noted to have blood pressures in the 70s systolic. [facility] administered IV fluids and suggested that she be transferred back to her care. EKG shows sinus mechanism without ST or T-wave changes. Laboratory data unremarkable with negative troponin. Limited echocardiogram prior to discharge showed LV function of 55-60% with a small pericardial effusion and large pleural effusion. On exam she is resting comfortably sitting up in a chair. She does report some weakness and fatigue, but denies any chest pain, chest pressure, palpitations, dyspnea, dizziness, or vertigo. PAST MEDICAL HISTORY: Bipolar disorder, depression, pericardial effusion, pleural effusion REVIEW OF SYSTEMS: No fever or chills. No cough or expectoration. No diaphoresis. Patient denies headache, dizziness, blurred vision, double vision. Patient denies any stomach discomfort. No nausea, vomiting. No hematochezia. No hematemesis. Denies any black stools or blood in his stools. Denies dysuria or hematuria. No muscle weakness or numbness. PHYSICAL EXAMINATION: This is a 58-year-old female in no apparent distress at the time of my examination. HEENT: Head is atraumatic, normocephalic. Pupils are equal, round. Sclerae anicteric. Conjunctivae are clear. Mucous membranes of the mouth are moist. Neck is supple. There is no jugular venous distention. No carotid bruit is heard. CHEST EXAMINATION: Lungs are clear to auscultation; diminished bilaterally. No chest wall tenderness is noted on palpation or with deep breathing. HEART EXAMINATION: Heart regular rate and rhythm. S1, S2 heard. No murmurs, gallops or rub. ABDOMEN: Soft, nontender. Bowel sounds are heard. No organomegaly noted. EXTREMITIES: 2+ peripheral pulses with no evidence of peripheral edema and no calf tenderness noted. NEUROLOGIC EXAMINATION: Patient is awake, alert and oriented x3. LABORATORY DATA: WBC 8.4, hemoglobin 12.4, hematocrit 38.8, platelet 427, sodium 137, potassium 4.9, chloride 102, BUN 23, creatinine 0.74, troponin less than 0.012 Vital signs: Blood pressure ranging from the low 100s to 1 teens systolic. Heart rates ranging from 70-90. SpO2 greater than 92% on room air. FINAL ASSESSMENT AND PLAN: #1 hypotension, likely related to dehydration #2 pleural effusion #3 pericardial effusion, status post pericardial window #4 depression #5 pulmonary emboli, currently on Eliquis PLAN: We will repeat limited echocardiogram. Discontinue IV fluids; Encourage oral fluids. Further recommendations to follow. Past Medical History Past Medical History: Seizure Disorder Additional Past Medical History / Comment(s): Remote history of seizures at the age of 9, was treated with phenobarbital for one year, with no subsequent recurrence of seizures. Pericardial effusion with pericardial window History of Any Multi-Drug Resistant Organisms: None Reported Past Surgical History: Section, Tonsillectomy Additional Past Surgical History / Comment(s): Adnoidectomy Past Anesthesia/Blood Transfusion Reactions: No Reported Reaction Past Psychological History: Bipolar, Depression Smoking Status: Never smoker Past Alcohol Use History: Occasional Past Drug Use History: None Reported - Past Family History Mother Family Medical History: Dementia Father Family Medical History: Diabetes Mellitus, Myocardial Infarction ([place]) Medications and Allergies Home Medications Medication Instructions Recorded Confirmed Type Divalproex [Depakote] 1,500 mg PO HS@202906/10/19 06/17/19 History QUEtiapine FUMARATE 600 mg PO HS@202906/10/19 06/17/19 History Apixaban [Eliquis] 10 mg PO BID #60 tab 06/16/19 06/17/19 Rx Colchicine [Colcrys] 0.6 mg PO BID #60 each 06/16/19 06/17/19 Rx Metoprolol Tartrate [Lopressor] 25 mg PO BID #60 tab 06/16/19 06/17/19 Rx Allergies Allergy/AdvReac Type Severity Reaction Status Date / Time No Known Allergies Allergy Verified 06/17/19 20:26 Physical Exam Vitals: Vital Signs Temp Pulse Pulse Pulse Pulse Pulse Resp 06/18/19 08:00 89 91 16 06/18/19 04:00 72 18 06/18/19 00:00 98 F 71 71 18 06/17/19 20:45 98 F 83 83 18 06/17/19 19:30 70 18 06/17/19 18:19 98.7 F 74 18 BP BP BP BP Pulse Ox 06/18/19 08:00 109/54 115/62 95 06/18/19 04:00 113/55 93 L 06/18/19 00:00 102/50 92 L 06/17/19 20:45 108/68 91 L 06/17/19 19:30 103/54 96 06/17/19 18:19 99/52 96 Intake and Output 06/17/19 06/18/19 06/18/19 22:59 06:59 14:59 Other: Voiding Method Toilet Toilet # Voids 0 1 Weight 85.275 kg 86.2 kg Results 06/18/19 05:41 06/18/19 05:41 Cardiac Enzymes 06/17/19 Range/Units 18:51 Troponin I <0.012 (0.000-0.034) ng/mL CBC 06/18/19 Range/Units 05:41 WBC 8.4 (3.8-10.6) k/uL RBC 4.01 (3.80-5.40) m/uL Hgb 12.4 (11.4-16.0) gm/dL Hct 38.8 (34.0-46.0) % Plt Count 427 (150-450) k/uL Comprehensive Metabolic Panel 06/18/19 Range/Units 05:41 Sodium 137 (137-145) mmol/L Potassium 4.9 (3.5-5.1) mmol/L Chloride 102 (98-107) mmol/L Carbon Dioxide 31 H (22-30) mmol/L BUN 23 H (7-17) mg/dL Creatinine 0.74 (0.52-1.04) mg/dL Glucose 78 (74-99) mg/dL Calcium 8.7 (8.4-10.2) mg/dL Current Medications Generic Name Dose Route Start Last Admin Trade Name Freq PRN Reason Stop Dose Admin Acetaminophen 650 mg 06/17/19 19:52 Tylenol Tab PO Q6HR PRN Mild Pain or Fever > 100.5 Apixaban 10 mg 06/17/19 21:00 06/18/19 08:28 Eliquis PO 10 mg BID NATACHA Administration Colchicine 0.6 mg 06/17/19 21:00 06/18/19 08:28 Colcrys PO 0.6 mg BID NATACHA Administration Divalproex Sodium 1,500 mg 06/17/19 20:30 06/17/19 21:10 Depakote PO 1,500 mg HS@2030 NATACHA Administration Sodium Chloride 1,000 mls @ 120 mls/hr 06/17/19 20:00 06/18/19 05:53 Saline 0.9% IV 120 mls/hr .Q8H20M NATACHA Administration Metoprolol Tartrate 25 mg 06/17/19 21:15 06/18/19 08:29 Lopressor PO 25 mg BID NATACHA Administration Naloxone HCl 0.2 mg 06/17/19 19:52 Narcan IV Q2M PRN Opioid Reversal Ondansetron HCl 4 mg 06/17/19 19:52 Zofran IVP Q8HR PRN Nausea And Vomiting Pantoprazole Sodium 40 mg 06/18/19 07:30 06/18/19 05:53 Protonix PO 40 mg [id number] NATACHA Administration Intake and Output 06/17/19 06/18/19 06/18/19 22:59 06:59 14:59 Other: Voiding Method Toilet Toilet # Voids 0 1 Weight 85.275 kg 86.2 kg 06/18/19 05:41 06/18/19 05:41
[2019-06-18] MEDS: DIVALPROEX 500 MG TABLET.DR PO SCH (19:48)
[2019-06-19] MEDS: PANTOPRAZOLE 40 MG TABLET PO SCH (07:00)
[2019-06-19] MEDS: APIXABAN 5 MG TAB PO SCH (08:07)
[2019-06-19] MEDS: COLCHICINE 0.6 MG EACH PO SCH (08:07)
[2019-06-19] MEDS: METOPROLOL TARTRATE 25 MG TAB PO SCH (08:07)
[2019-06-19 08:13] VITALS: RESP 16; TEMP 98.5
--- NOTE | 2019-06-19 12:27 | P.PN ---
Subjective Progress Note Date: 06/19/19 06/18/2019 On exam she is resting comfortably sitting up in a chair. She does report some weakness and fatigue, but denies any chest pain, chest pressure, palpitations, dyspnea, dizziness, or vertigo. Echocardiogram revealed normal LV function without pericardial effusion. Inflammatory changes still noted. 06/19/2019 On exam the patient is resting comfortably up in the recliner. Although she continues to feel some mild fatigue, she denies any dizziness or lightheadedness. She has a denies any chest discomfort, dyspnea, palpitations, or lower extremity edema. GENERAL: Well-appearing, well-nourished and in no acute distress. NECK: Supple without JVD or thyromegaly. LUNGS: Breath sounds clear to auscultation bilaterally. Respiration equal and unlabored. No wheezes, rales or rhonchi. HEART: Regular rate and rhythm without murmurs, rubs or gallops. S1 and S2 heard. EXTREMITIES: Normal range of motion, no edema. No clubbing or cyanosis. Peripheral pulses intact and strong. Vital signs: Blood pressure 142/51, heart rate 86, temperature 98.5 oral, SpO2 90% on room air Impression: #1 hypotension, likely related to dehydration #2 pleural effusion, acute on chronic #3 pericardial effusion, status post pericardial window #4 depression #5 pulmonary emboli, currently on Eliquis Plan: Patient is cleared to be discharged from the cardiac standpoint. We discussed the importance of adequate hydration. She is instructed to follow up as previously scheduled outpatient. Objective - Vital Signs Vital signs: Vital Signs Temp 98.5 F 06/19/19 08:00 Pulse 86 06/19/19 08:00 Resp 16 06/19/19 11:48 BP 142/51 06/19/19 08:00 Pulse Ox 98 06/19/19 08:00 Intake & Output 06/18/19 06/19/19 06/19/19 18:59 06:59 18:59 Intake Total 834 358 Balance 834 358 Weight 85.3 kg Intake: Oral 834 358 Other: Voiding Method Toilet Toilet Toilet # Voids 2 2 # Bowel Movements 2 3 - Labs CBC & Chem 7: 06/18/19 05:41 06/18/19 05:41
--- NOTE | 2019-06-19 13:54 | P.DS ---
Providers Date of admission: 06/17/19 19:52 Expected date of discharge: 06/19/19 Attending physician: Ruthann Ramachandran MD Consults: 06/18/19 07:19 Consult Physician Stat Consulting Provider: Ayo Phoenix Consult Reason/Comments: hypotension, h/o diastolic CHF, pericardial effusion Do you want consulting provider notified?: Yes Primary care physician: [facility] Course: 58 year old female recently discharged from the hospital after a prolonged admission for acute pericarditis, pleurisy with bilateral pleural effusions, acute hypoxemic respiratory failure as well as diastolic CHF presented to the emergency department the day after discharge due to feeling dizzy and fatigued. During the admission she had pericardial window done by cardiothoracic surgery as well as bilateral thoracenteses. The pleural fluid was transudative in nature but the exact etiology of the pleural effusions and the pericarditis was unclear. Autoimmune workup was negative. Upon evaluation at [facility] she was found to be hypotensive with systolic blood pressure in the 70s. Patient also reported suspected slurred speech. Today patient mentioned to me that she was confused in regards to the medications he was supposed to take after discharge and she thought that she missed them up. Upon admission she denied any associated trouble breathing, leg swelling , chest pain , fever, chills, headache, or any other focal neurodeficits. Laboratory evaluation was essentially negative at the time of presentation. Patient was admitted for IV fluids, she was thought to be dehydrated. She felt better with this treatment. Today she is feeling back to normal. She was seen by cardiology who agreed with the management. She'll be discharged home in stable condition. Patient Condition at Discharge: Fair Plan - Discharge Summary New Discharge Prescriptions: Continue Divalproex [Depakote] 1,500 mg PO HS@2030 QUEtiapine FUMARATE 600 mg PO HS@2030 Colchicine [Colcrys] 0.6 mg PO BID #60 each Apixaban [Eliquis] 10 mg PO BID #60 tab Metoprolol Tartrate [Lopressor] 25 mg PO BID #60 tab Discharge Medication List Divalproex [Depakote] 1,500 mg PO HS@2030 06/10/19 [History] QUEtiapine FUMARATE 600 mg PO HS@2030 06/10/19 [History] Apixaban [Eliquis] 10 mg PO BID #60 tab 06/16/19 [Rx] Colchicine [Colcrys] 0.6 mg PO BID #60 each 06/16/19 [Rx] Metoprolol Tartrate [Lopressor] 25 mg PO BID #60 tab 06/16/19 [Rx] Follow up Appointment(s)/Referral(s): Kristian Lord, ANA [REFERRING] - 1-2 days
[2019-06-19 14:56] VITALS: BP 91/61; PULSE 79
--- NOTE | 2019-06-22 10:13 | CDI ---
Documentation Clarification Form Date: 06/22/19 From: Reyna Cuenca Phone: If you have a question about this query, please contact Kirti Brown, Customer Facilities Supervisor at [phone] between 8am and 5pm. Admit Date: 06/17/19 Discharge Date: 06/19/19 Patient Name: ROSE CUMMINGS Visit Number: [id number] ATTENTION: The Clinical Documentation Specialists (CDI) and [facility] Coding Staff appreciate your assistance in clarifying documentation. Please respond to the clarification below the line at the bottom and electronically sign. The CDI & [facility] Coding staff will review the response and follow-up if needed. Please note: Queries are made part of the Legal Health Record. If you have any questions, please contact the author of this message via ITS. Dear Dr. Teri José, Patient recently discharged after pulmonary embolism on Eliquis, documented in the ED note, consult and 06/18 PN. In your professional opinion, can you please In your professional opinion, can you please clarify acuity of the PE? Acute Chronic History of Other (please specify) Clinically unable to further specify Unknown History of PE MTDD
== END 2019-06-19 15:02 | disposition home or self-care (01) | DRG 641 ==
LOC: EC 18:14 → 3SCARD 19:52
PROVIDERS: ADMIT Internal Medicine; ATTEND Internal Medicine
DX: E86.0 Dehydration (principal); I50.32 Chronic diastolic (congestive) heart failure; I31.3 Pericardial effusion (noninflammatory); J91.8 Pleural effusion in other conditions classified elsewhere; I95.9 Hypotension, unspecified; G40.909 Epilepsy, unspecified, not intractable, without status epilepticus; F31.9 Bipolar disorder, unspecified; R47.81 Slurred speech; Z79.01 Long term (current) use of anticoagulants; Z79.899 Other long term (current) drug therapy; Z86.711 Personal history of pulmonary embolism; Z86.79 Personal history of other diseases of the circulatory system; Z98.891 History of uterine scar from previous surgery; Z98.890 Other specified postprocedural states; Z82.0 Family history of epilepsy and other diseases of the nervous system; Z83.3 Family history of diabetes mellitus; Z82.49 Family history of ischemic heart disease and other diseases of the circulatory system
CPT/HCPCS: 36415; 80048; 84484; 85025; 93005; 93308; 99285